=== PATIENT | female | born 1990 | race Caucasian/White ===

== ENCOUNTER 2019-12-15 16:02 | Emergency (ER) | payer MEDICARE, OTHER ==
[2019-12-15 16:18] VITALS: RESP 18; TEMP 98.3
[2019-12-15] MEDS ORDERED: SODIUM CHLORIDE 0.9% 500 ML 500 ML IV ONE (16:40)
[2019-12-15] MEDS ORDERED: HYDROmorphone 0.5 MG/0.5 ML SYRINGE IVP STA ×2 (16:40→18:20)
[2019-12-15] MEDS ORDERED: SODIUM CHLORIDE 0.9% 1,000 ML IV SCH (16:45)
[2019-12-15 17:07] LABS: Basophils % (A) 1 %; Eosinophils # (A) 0.1 k/uL (0-0.7); Eosinophils % (A) 2 %; HCT 42.2 % (34.0-46.0); HGB 13.9 gm/dL (11.4-16.0); Lymphocytes # (A) 1.7 k/uL (1.0-4.8); Lymphocytes % (A) 25 %; MCH 32.3 pg (25.0-35.0); MCHC 32.8 g/dL (31.0-37.0); MCV 98.4 fL (80.0-100.0); Mean Platelet Volume 6.4; Monocytes # (A) 0.3 k/uL (0-1.0); Monocytes % (A) 5 %; Neutrophils # (A) 4.5 k/uL (1.3-7.7); Neutrophils % (A) 67 %; Platelet Count 436 k/uL (150-450); RBC 4.29 m/uL (3.80-5.40); RDW 12.9 % (11.5-15.5); WBC 6.7 k/uL (3.8-10.6)
[2019-12-15 17:13] LABS: Appearance,Urine Cloudy (Clear); Bacteria,Urine Many /hpf; Bilirubin,Urine Negative (Negative); Blood,Urine Negative (Negative); Color,Urine Light Yellow; Glucose,Urine (UA) Negative (Negative); Ketones,Urine Negative (Negative); Leukocyte Esterase,Urine Negative (Negative); Mucus,Urine Rare /hpf; Nitrite,Urine Negative (Negative); PH, Urine 7.5 (5.0-8.0); Protein,Urine Negative (Negative); RBC,Urine <1 /hpf (0-5); Specific Gravity,Urine 1.008 (1.001-1.035); Squamous Epithelial Cell,Urine 1 /hpf (0-4); Urobilinogen,Urine <2.0 mg/dL (<2.0); WBC,Urine 7 /hpf (0-5)
[2019-12-15 17:23] LABS: ALT 11 U/L (4-34); AST 23 U/L (14-36); African American GFR (CKD) >90 (>60 ml/min/1.73 sqM); Albumin 4.8 g/dL (3.5-5.0); Alkaline Phosphatase 47 U/L (38-126); Anion Gap 9 mmol/L; Blood Urea Nitrogen 15 mg/dL (7-17); Carbon Dioxide 23 mmol/L (22-30); Chloride 107 mmol/L (98-107); Glucose 91 mg/dL (74-99); Non-African American GFR(CKD) 79 (>60 ml/min/1.73 sqM); Potassium 4.4 mmol/L (3.5-5.1); Sodium 139 mmol/L (137-145); Total Bilirubin 0.3 mg/dL (0.2-1.3); Total Protein 7.9 g/dL (6.3-8.2)
--- NOTE | 2019-12-15 17:40 | CT ---
EXAMINATION TYPE: CT abdomen pelvis w con DATE OF EXAM: 12/15/2019 COMPARISON: None HISTORY: Left lower pelvic pain. Cyst removal 11/19/19. CT DLP: 935.3 mGycm Automated exposure control for dose reduction was used. CONTRAST: Performed with IV Contrast, patient injected with 100 mL of Isovue 300. Multiple axial sections were obtained from the diaphragm to the floor the pelvis with IV contrast. Lung bases are clear. There is no pleural effusion. Heart size is normal. There is no pericardial eff usion. Liver and gallbladder appear normal. Bile ducts are not dilated. Spleen stomach pancreas appear dom[place] l. There is no adrenal mass. Kidneys show satisfactory contrast opacification. There is no hydronephrosi s. Ureters are not dilated. The delayed images show normal renal excretion. There is no retroperitone al adenopathy. Bladder distends smoothly. There is no inguinal hernia. Uterus is anteverted. There is no evidence of a pelvic mass. There is 2 cm cyst on the left ovary. Appendix is partly filled with air and appears normal. Appendix is posterior. There is no mesenteric edema. There is no ascites or free air. There is no sign of a bowel obstructio n. Lumbar vertebra have normal spacing and alignment. There is no compression fracture. Bony pelvis i s intact. IMPRESSION: 2 cm cyst on the left ovary. Negative CT scan abdomen and pelvis. Normal appendix.
--- NOTE | 2019-12-15 18:18 | US ---
EXAMINATION TYPE: US transvaginal DATE OF EXAM: 12/15/2019 COMPARISON: NONE CLINICAL HISTORY: r/o torsion. Hx of ovarian cysts. TECHNIQUE: Transvaginal (TV). EXAM MEASUREMENTS: Uterus: 7.3 x 3.6 x 5.2 cm Endometrial Stripe: .4 cm Right Ovary: 5.1 x 3.1 x 5.8 cm Left Ovary: 2.3 x 3.2 x 2.0 cm 1. Uterus: Anteverted wnl 2. Endometrium: wnl 3. Right Ovary: Complex area 3.3 x 2.3 x 4.5 cm 4. Left Ovary: Cystic area 4.4 x 2.1 x 1.8 cm Spectral, color and waveform doppler imaging shows good arterial and venous flow within the ovaries ; there is no evidence for ovarian torsion. 5. Bilateral Adnexa: wnl 6. Posterior cul-de-sac: Small amount of fluid. IMPRESSION: Bilateral ovarian cysts. No solid adnexal mass. No evidence of ovarian torsion. Normal uterus. Small amount of free fluid in the pelvis is probably physiologic.
[2019-12-15 18:39] VITALS: BP 118/77; PULSE 88
[2019-12-15] MEDS ORDERED: ACET/COD 300 MG/30 MG STARTER PACK 6 TAB BTL PO STA (18:54)
--- NOTE | 2019-12-15 18:54 | ED ---
Abdominal Pain HPI - General Chief Complaint: Abdominal Pain Stated Complaint: lower abd pain Time Seen by Provider: 12/15/19 16:21 Source: patient Mode of arrival: ambulatory Limitations: no limitations - History of Present Illness Initial Comments: 29-year-old female with recent cyst removal surgery at [facility] 11/19/2019 present for left lower pelvic pain x 1 week. Patient states she recently had a left lower pelvic cyst removed those 5 cm per she states she freely equally has recurring ovarian cyst she states her in the largest this was 10 cm. Patient denies history of PCOS. Patient denies vaginal discharge, bleeding, fevers, dysuria, urgency, frequency. Patient denies concern for STI. Chest pain, SOB. States pain at time radiates to her back patient denies additional complaints and appears well on arrival, no signs of significant distress. - Related Data Home Medications Medication Instructions Recorded Confirmed Aspirin EC [Ecotrin Low Dose] 81 mg PO DAILY 12/15/19 12/15/19 Cetirizine HCl [Zyrtec] 10 mg PO DAILY 12/15/19 12/15/19 Cholecalciferol (Vitamin D3) 2,000 unit PO DAILY 12/15/19 12/15/19 [Vitamin D3] DULoxetine HCL [Cymbalta] 120 mg PO DAILY 12/15/19 12/15/19 Folic Acid 1 mg PO DAILY 12/15/19 12/15/19 Ibuprofen [Motrin] 800 mg PO Q6H PRN 12/15/19 12/15/19 Ketorolac 30mg/Ml Injection 30 mg IM ONCE PRN MDD max 1 dose 12/15/19 12/15/19 weekly Multivitamins, Thera [Multivitamin 1 tab PO DAILY 12/15/19 12/15/19 (formulary)] Ondansetron [Zofran ODT] 4 mg SL Q12H PRN 12/15/19 12/15/19 Promethazine [Phenergan] 25 mg PO Q6H PRN 12/15/19 12/15/19 Topiramate [Topamax] 200 mg PO HS 12/15/19 12/15/19 tiZANidine [Zanaflex] 4 mg PO HS 12/15/19 12/15/19 Allergies Allergy/AdvReac Type Severity Reaction Status Date / Time amoxicillin Allergy Rash/Hives Verified 12/15/19 17:59 clindamycin Allergy Rash/Hives Verified 12/15/19 17:59 diphtheria,pertussis Allergy Rash/Hives Verified 12/15/19 17:59 (acellular),te [From Boostrix Tdap] latex Allergy Rash/Hives Verified 12/15/19 17:59 sertraline [From Zoloft] Allergy Rash/Hives/ Verified 12/15/19 17:59 Seizures Sulfa (Sulfonamide Allergy Rash/Hives Verified 12/15/19 17:59 Antibiotics) Review of Systems ROS Statement: Those systems with pertinent positive or pertinent negative responses have been documented in the HPI. ROS Other: All systems not noted in ROS Statement are negative. Past Medical History Additional Past Medical History / Comment(s): MS- Migraines, malformation type one Past Surgical History: Adenoidectomy, Hernia Repair, Orthopedic Surgery, Tonsillectomy, Tubal Ligation Additional Past Surgical History / Comment(s): cyst removal x 2, brain sx 2018 Past Psychological History: Depression, PTSD Smoking Status: Never smoker Past Alcohol Use History: Occasional Past Drug Use History: Marijuana General Exam - General Exam Comments Initial Comments: General: The patient is awake and alert, in no distress Eye: +3 mm pupils are equal, round and reactive to light, extra-ocular movements are intact. No nystagmus. There is normal conjunctiva bilaterally. No signs of icterus. Ears, nose, mouth and throat: There are moist mucous membranes and no oral lesions. Neck: The neck is supple, there is no tenderness or JVD. Cardiovascular: There is a regular rate and rhythm. No murmur, rub or gallop is appreciated. Respiratory: Lungs are clear to auscultation, respirations are non-labored, breath sounds are equal. No wheezes, stridor, rales, or rhonchi. Gastrointestinal: Soft, non-distended, mild left lower pelvic tenderness to palpation of the abdomen without masses or organomegaly noted. There is no rebound or guarding present. Musculoskeletal: Normal ROM, no tenderness. Strength 5/5. Sensation intact. Radial pulses equal bilaterally 2+. Neurological: A&O x 3. CN II-XII intact grossly, There are no obvious motor or sensory deficits. Coordination appears grossly intact. Speech is normal. Skin: Skin is warm and dry and no rashes or lesions are noted. Psychiatric: Cooperative, appropriate mood & affect, normal judgment. Limitations: no limitations Course Vital Signs 12/15/19 12/15/19 16:14 18:39 Temperature 98.3 F Pulse Rate 106 H 88 Respiratory 18 18 Rate Blood Pressure 124/77 118/77 O2 Sat by Pulse 98 98 Oximetry Medical Decision Making - Medical Decision Making CT (-) for acute process. Cysts noted. US noted small 2cm cyst, no torsion. Sho ent has no significant free fluid in abdomen. Pain controlled in ER. Urine some bacteria no urinary symptoms. Given back pain will treat. Recommend OBGYN f/u. She states was established K her ankle a scheduled appointment for December 23. Recommend calling to arrange sooner f/u and obtain records. Patient states she is comfortable with discharge and figured this was a cyst. Patient discharged appearing well> I discussed return parameters and importance of f/u and return for increasing pain. - Lab Data Result diagrams: 12/15/19 17:00 12/15/19 17:00 Lab Results 12/15/19 12/15/19 12/15/19 Range/Units 17:00 17:00 17:00 WBC 6.7 (3.8-10.6) k/uL RBC 4.29 (3.80-5.40) m/uL Hgb 13.9 (11.4-16.0) gm/dL Hct 42.2 (34.0-46.0) % MCV 98.4 (80.0-100.0) fL MCH 32.3 (25.0-35.0) pg MCHC 32.8 (31.0-37.0) g/dL RDW 12.9 (11.5-15.5) % Plt Count 436 (150-450) k/uL Neutrophils % 67 % Lymphocytes % 25 % Monocytes % 5 % Eosinophils % 2 % Basophils % 1 % Neutrophils # 4.5 (1.3-7.7) k/uL Lymphocytes # 1.7 (1.0-4.8) k/uL Monocytes # 0.3 (0-1.0) k/uL Eosinophils # 0.1 (0-0.7) k/uL Basophils # 0.0 (0-0.2) k/uL Sodium (137-145) mmol/L Potassium (3.5-5.1) mmol/L Chloride (98-107) mmol/L Carbon Dioxide (22-30) mmol/L Anion Gap mmol/L BUN (7-17) mg/dL Creatinine (0.52-1.04) mg/dL Est GFR (CKD-EPI)AfAm (>60 ml/min/1.73 sqM) Est GFR (CKD-EPI)NonAf (>60 ml/min/1.73 sqM) Glucose (74-99) mg/dL Calcium (8.4-10.2) mg/dL Total Bilirubin (0.2-1.3) mg/dL AST (14-36) U/L ALT (4-34) U/L Alkaline Phosphatase (38-126) U/L Total Protein (6.3-8.2) g/dL Albumin (3.5-5.0) g/dL Urine Color Light Yellow Urine Appearance Cloudy H (Clear) Urine pH 7.5 (5.0-8.0) Ur Specific [place] 1.008 (1.001-1.035) Urine Protein Negative (Negative) Urine Glucose (UA) Negative (Negative) Urine Ketones Negative (Negative) Urine Blood Negative (Negative) Urine Nitrite Negative (Negative) Urine Bilirubin Negative (Negative) Urine Urobilinogen <2.0 (<2.0) mg/dL Ur Leukocyte Esterase Negative (Negative) Urine RBC <1 (0-5) /hpf Urine WBC 7 H (0-5) /hpf Ur Squamous Epith Cells 1 (0-4) /hpf Urine Bacteria Many H (None) /hpf Urine Mucus Rare H (None) /hpf Urine HCG, Qual Not Detected (Not Detectd) 12/15/19 Range/Units 17:00 WBC (3.8-10.6) k/uL RBC (3.80-5.40) m/uL Hgb (11.4-16.0) gm/dL Hct (34.0-46.0) % MCV (80.0-100.0) fL MCH (25.0-35.0) pg MCHC (31.0-37.0) g/dL RDW (11.5-15.5) % Plt Count (150-450) k/uL Neutrophils % % Lymphocytes % % Monocytes % % Eosinophils % % Basophils % % Neutrophils # (1.3-7.7) k/uL Lymphocytes # (1.0-4.8) k/uL Monocytes # (0-1.0) k/uL Eosinophils # (0-0.7) k/uL Basophils # (0-0.2) k/uL Sodium 139 (137-145) mmol/L Potassium 4.4 (3.5-5.1) mmol/L Chloride 107 (98-107) mmol/L Carbon Dioxide 23 (22-30) mmol/L Anion Gap 9 mmol/L BUN 15 (7-17) mg/dL Creatinine 0.98 (0.52-1.04) mg/dL Est GFR (CKD-EPI)AfAm >90 (>60 ml/min/1.73 sqM) Est GFR (CKD-EPI)NonAf 79 (>60 ml/min/1.73 sqM) Glucose 91 (74-99) mg/dL Calcium 10.0 (8.4-10.2) mg/dL Total Bilirubin 0.3 (0.2-1.3) mg/dL AST 23 (14-36) U/L ALT 11 (4-34) U/L Alkaline Phosphatase 47 (38-126) U/L Total Protein 7.9 (6.3-8.2) g/dL Albumin 4.8 (3.5-5.0) g/dL Urine Color Urine Appearance (Clear) Urine pH (5.0-8.0) Ur Specific [place] (1.001-1.035) Urine Protein (Negative) Urine Glucose (UA) (Negative) Urine Ketones (Negative) Urine Blood (Negative) Urine Nitrite (Negative) Urine Bilirubin (Negative) Urine Urobilinogen (<2.0) mg/dL Ur Leukocyte Esterase (Negative) Urine RBC (0-5) /hpf Urine WBC (0-5) /hpf Ur Squamous Epith Cells (0-4) /hpf Urine Bacteria (None) /hpf Urine Mucus (None) /hpf Urine HCG, Qual (Not Detectd) Disposition Clinical Impression: Pelvic pain, Ovarian cyst Disposition: HOME SELF-CARE Condition: Good Instructions (If sedation given, give patient instructions): Ovarian Cyst (ED) Additional Instructions: Please use medication as discussed. Please follow-up OBGYN in next week. Please return to emergency room if the symptoms increase or worsen or for any other concerns. Is patient prescribed a controlled substance at d/c from ED?: No Referrals: Nonstaff,Physician [Primary Care Provider] - 1-2 days Time of Disposition: 18:54
== END 2019-12-15 19:02 | disposition home or self-care (01) ==
LOC: EC 16:02
DX: N83.202 Unspecified ovarian cyst, left side (principal); N83.201 Unspecified ovarian cyst, right side; G43.909 Migraine, unspecified, not intractable, without status migrainosus; F32.9 Major depressive disorder, single episode, unspecified; Z79.899 Other long term (current) drug therapy; Z88.0 Allergy status to penicillin; Z88.1 Allergy status to other antibiotic agents; Z88.2 Allergy status to sulfonamides; Z88.7 Allergy status to serum and vaccine; Z88.8 Allergy status to other drugs, medicaments and biological substances; Z91.040 Latex allergy status; Z90.49 Acquired absence of other specified parts of digestive tract; Z98.51 Tubal ligation status
CPT/HCPCS: 36415; 80053; 85025; 81001; 81025; 93975; 76830; 74177; 99284; 96374; 96375; 96361; J1170; Q9967

== ENCOUNTER 2019-12-24 13:30 | Emergency (ER) | payer MEDICARE, OTHER ==
[2019-12-24 14:20] LABS: Appearance,Urine Clear (Clear); Bilirubin,Urine Negative (Negative); Blood,Urine Negative (Negative); Color,Urine Light Yellow; Glucose,Urine (UA) Negative (Negative); Ketones,Urine Negative (Negative); Leukocyte Esterase,Urine Negative (Negative); Nitrite,Urine Negative (Negative); PH, Urine 7.5 (5.0-8.0); Protein,Urine Negative (Negative); Specific Gravity,Urine 1.003 (1.001-1.035); Urobilinogen,Urine <2.0 mg/dL (<2.0)
[2019-12-24] MEDS ORDERED: SODIUM CHLORIDE 0.9% 1,000 ML IV STA (14:27)
[2019-12-24] MEDS ORDERED: HYDROmorphone 0.5 MG/0.5 ML SYRINGE IVP STA ×2 (14:27→16:20)
[2019-12-24] MEDS ORDERED: ONDANSETRON 4 MG/2 ML VIAL IVP STA (14:27)
--- NOTE | 2019-12-24 14:33 | ED ---
General Adult HPI - General Chief complaint: Abdominal Pain Stated complaint: Lower Abd Pain Time Seen by Provider: 12/24/19 14:05 Source: patient, RN notes reviewed Mode of arrival: ambulatory Limitations: no limitations - History of Present Illness Initial comments: 29-year-old female with a past medical history of MS, migraines, ovarian cysts presents to the emergency department for a chief complaint of left lower quadrant pain. Patient states she had lap her cervix surgery on November 20 to remove a 5 cm cyst on the left ovary. Patient states she was seen here on December 14 because she started to have similar pain. She was diagnosed with a small cy st. Patient states pain improved at that time and she went home. She followed up with her doctor who wanted to wait and see how patient's pain was and get another ultrasound next week. Patient states her pain had completely resolved however this morning felt like a sudden stabbing pain in the left lower quadrant. Patient states she is passing gas and having normal bowel movements. Admits to mild nausea with the pain but denies vomiting. Denies dysuria.Patient has no other complaints at this time including shortness of breath, chest pain, vomiting, headache, or visual changes. - Related Data Home Medications Medication Instructions Recorded Confirmed Aspirin EC [Ecotrin Low Dose] 81 mg PO DAILY 12/15/19 12/24/19 Cetirizine HCl [Zyrtec] 10 mg PO DAILY 12/15/19 12/24/19 Cholecalciferol (Vitamin D3) 2,000 unit PO DAILY 12/15/19 12/24/19 [Vitamin D3] DULoxetine HCL [Cymbalta] 120 mg PO DAILY 12/15/19 12/24/19 Folic Acid 1 mg PO DAILY 12/15/19 12/24/19 Ibuprofen [Motrin] 800 mg PO Q6H PRN 12/15/19 12/24/19 Ketorolac 30mg/Ml Injection 30 mg IM ONCE PRN MDD max 1 dose 12/15/19 12/24/19 weekly Multivitamins, Thera [Multivitamin 1 tab PO DAILY 12/15/19 12/24/19 (formulary)] Ondansetron [Zofran ODT] 4 mg SL Q12H PRN 12/15/19 12/24/19 Promethazine [Phenergan] 25 mg PO Q6H PRN 12/15/19 12/24/19 Topiramate [Topamax] 200 mg PO HS 12/15/19 12/24/19 tiZANidine [Zanaflex] 4 mg PO HS 12/15/19 12/24/19 diphenhydrAMINE [Benadryl] 25 - 50 mg PO HS PRN 12/24/19 12/24/19 Allergies Allergy/AdvReac Type Severity Reaction Status Date / Time amoxicillin Allergy Rash/Hives Verified 12/24/19 15:11 clindamycin Allergy Rash/Hives Verified 12/24/19 15:11 diphtheria,pertussis Allergy Rash/Hives Verified 12/24/19 15:11 (acellular),te [From Boostrix Tdap] latex Allergy Rash/Hives Verified 12/24/19 15:11 sertraline [From Zoloft] Allergy Rash/Hives/ Verified 12/24/19 15:11 Seizures Sulfa (Sulfonamide Allergy Rash/Hives Verified 12/24/19 15:11 Antibiotics) Review of Systems ROS Statement: Those systems with pertinent positive or pertinent negative responses have been documented in the HPI. ROS Other: All systems not noted in ROS Statement are negative. Past Medical History Additional Past Medical History / Comment(s): MS- Migraines, malformation type one Past Surgical History: Adenoidectomy, Hernia Repair, Orthopedic Surgery, Tonsillectomy, Tubal Ligation Additional Past Surgical History / Comment(s): cyst removal x 2, brain sx 2018 Past Psychological History: Depression, PTSD Smoking Status: Never smoker Past Alcohol Use History: Occasional Past Drug Use History: Marijuana General Exam Limitations: no limitations General appearance: alert, in no apparent distress Head exam: Present: atraumatic, normocephalic, normal inspection Eye exam: Present: normal appearance, PERRL, EOMI. Absent: scleral icterus, conjunctival injection, periorbital swelling ENT exam: Present: normal exam, mucous membranes moist Neck exam: Present: normal inspection, full ROM. Absent: tenderness, meningismus, lymphadenopathy Respiratory exam: Present: normal lung sounds bilaterally. Absent: respiratory distress, wheezes, rales, rhonchi, stridor Cardiovascular Exam: Present: regular rate, normal rhythm, normal heart sounds. Absent: systolic murmur, diastolic murmur, rubs, gallop, clicks GI/Abdominal exam: Present: soft, tenderness (Minimal left lower quadrant tenderness without guarding. No right lower quadrant tenderness. No upper abdominal tenderness. Abdomen is soft.), normal bowel sounds. Absent: distended, guarding, rebound, rigid Neurological exam: Present: alert Course Vital Signs 12/24/19 13:52 Temperature 98 F Pulse Rate 99 Respiratory 18 Rate Blood Pressure 118/85 O2 Sat by Pulse 100 Oximetry Medical Decision Making - Medical Decision Making Vitals are stable. Physical exam reveals minimal left lower quadrant tenderness without any guarding or rebound. CBC CMP is unremarkable. Urinalysis is unremarkable. I did review the CT from December 14 which showed a 2 cm cyst on the left ovary and was otherwise negative. Appendix appeared normal at that time. Ultrasound at that time showed bilateral ovarian cysts. Patient spoke with her doctor who ordered another ultrasound for next week. However as pain started today patient came into the emergency room. Therefore I repeated ultrasound to rule out ovarian torsion. Ultrasound did show a complex right ovarian mass that may reflect hemorrhagic cyst or endometrioma. Lesion of other etiology not excluded and strict clinical correlation is advised. This is now 4.3 cm versus 3.3 cm from a week ago. There is a simple appearing cyst of the left ovary. Patient feeling better after pain medications. Patient has close follow-up with her [employer]. I did print a disc for her [employer]. 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 She will call today with results. She will return here for any worsening symptoms. - Lab Data Result diagrams: 12/24/19 15:29 12/24/19 15:29 Lab Results 12/24/19 12/24/19 12/24/19 Range/Units 14:07 14:07 15:29 WBC 4.7 (3.8-10.6) k/uL RBC 4.12 (3.80-5.40) m/uL Hgb 13.3 (11.4-16.0) gm/dL Hct 40.2 (34.0-46.0) % MCV 97.4 (80.0-100.0) fL MCH 32.2 (25.0-35.0) pg MCHC 33.1 (31.0-37.0) g/dL RDW 12.7 (11.5-15.5) % Plt Count 438 (150-450) k/uL Neutrophils % 61 % Lymphocytes % 30 % Monocytes % 6 % Eosinophils % 1 % Basophils % 0 % Neutrophils # 2.9 (1.3-7.7) k/uL Lymphocytes # 1.4 (1.0-4.8) k/uL Monocytes # 0.3 (0-1.0) k/uL Eosinophils # 0.1 (0-0.7) k/uL Basophils # 0.0 (0-0.2) k/uL Sodium (137-145) mmol/L Potassium (3.5-5.1) mmol/L Chloride (98-107) mmol/L Carbon Dioxide (22-30) mmol/L Anion Gap mmol/L BUN (7-17) mg/dL Creatinine (0.52-1.04) mg/dL Est GFR (CKD-EPI)AfAm (>60 ml/min/1.73 sqM) Est GFR (CKD-EPI)NonAf (>60 ml/min/1.73 sqM) Glucose (74-99) mg/dL Calcium (8.4-10.2) mg/dL Total Bilirubin (0.2-1.3) mg/dL AST (14-36) U/L ALT (4-34) U/L Alkaline Phosphatase (38-126) U/L Total Protein (6.3-8.2) g/dL Albumin (3.5-5.0) g/dL Amylase (30-110) U/L Lipase (23-300) U/L Urine Color Light Yellow Urine Appearance Clear (Clear) Urine pH 7.5 (5.0-8.0) Ur Specific [place] 1.003 (1.001-1.035) Urine Protein Negative (Negative) Urine Glucose (UA) Negative (Negative) Urine Ketones Negative (Negative) Urine Blood Negative (Negative) Urine Nitrite Negative (Negative) Urine Bilirubin Negative (Negative) Urine Urobilinogen <2.0 (<2.0) mg/dL Ur Leukocyte Esterase Negative (Negative) Urine HCG, Qual Not Detected (Not Detectd) 12/24/19 Range/Units 15:29 WBC (3.8-10.6) k/uL RBC (3.80-5.40) m/uL Hgb (11.4-16.0) gm/dL Hct (34.0-46.0) % MCV (80.0-100.0) fL MCH (25.0-35.0) pg MCHC (31.0-37.0) g/dL RDW (11.5-15.5) % Plt Count (150-450) k/uL Neutrophils % % Lymphocytes % % Monocytes % % Eosinophils % % Basophils % % Neutrophils # (1.3-7.7) k/uL Lymphocytes # (1.0-4.8) k/uL Monocytes # (0-1.0) k/uL Eosinophils # (0-0.7) k/uL Basophils # (0-0.2) k/uL Sodium 140 (137-145) mmol/L Potassium 4.1 (3.5-5.1) mmol/L Chloride 108 H (98-107) mmol/L Carbon Dioxide 24 (22-30) mmol/L Anion Gap 8 mmol/L BUN 13 (7-17) mg/dL Creatinine 0.78 (0.52-1.04) mg/dL Est GFR (CKD-EPI)AfAm >90 (>60 ml/min/1.73 sqM) Est GFR (CKD-EPI)NonAf >90 (>60 ml/min/1.73 sqM) Glucose 86 (74-99) mg/dL Calcium 9.6 (8.4-10.2) mg/dL Total Bilirubin 0.3 (0.2-1.3) mg/dL AST 21 (14-36) U/L ALT 12 (4-34) U/L Alkaline Phosphatase 53 (38-126) U/L Total Protein 7.1 (6.3-8.2) g/dL Albumin 4.4 (3.5-5.0) g/dL Amylase 58 (30-110) U/L Lipase 96 (23-300) U/L Urine Color Urine Appearance (Clear) Urine pH (5.0-8.0) Ur Specific [place] (1.001-1.035) Urine Protein (Negative) Urine Glucose (UA) (Negative) Urine Ketones (Negative) Urine Blood (Negative) Urine Nitrite (Negative) Urine Bilirubin (Negative) Urine Urobilinogen (<2.0) mg/dL Ur Leukocyte Esterase (Negative) Urine HCG, Qual (Not Detectd) Disposition Clinical Impression: Pelvic pain, Ovarian mass, right Disposition: HOME SELF-CARE Condition: Good Instructions (If sedation given, give patient instructions): Ruptured Ovarian Cyst (ED), Ovarian Cyst (ED) Additional Instructions: Please follow up with [employer] as soon as possible. As discussed we would like [employer] to further evaluate mass of the right ovary. The concern is hemorrhagic cyst versus endometrioma versus other etiology. Take Motrin for pain. If pain is persistent a Tylenol [address] operate machinery while taking this. Please return here to the emergency room should you have any worsening symptoms. Is patient prescribed a controlled substance at d/c from ED?: No Referrals: Nonstaff,Physician [Primary Care Provider] - 1-2 days Time of Disposition: 17:02
[2019-12-24 15:46] LABS: ALT 12 U/L (4-34); AST 21 U/L (14-36); African American GFR (CKD) >90 (>60 ml/min/1.73 sqM); Albumin 4.4 g/dL (3.5-5.0); Alkaline Phosphatase 53 U/L (38-126); Amylase 58 U/L (30-110); Anion Gap 8 mmol/L; Blood Urea Nitrogen 13 mg/dL (7-17); Calcium 9.6 mg/dL (8.4-10.2); Carbon Dioxide 24 mmol/L (22-30); Chloride 108 mmol/L (98-107); Glucose 86 mg/dL (74-99); Non-African American GFR(CKD) >90 (>60 ml/min/1.73 sqM); Potassium 4.1 mmol/L (3.5-5.1); Sodium 140 mmol/L (137-145); Total Bilirubin 0.3 mg/dL (0.2-1.3); Total Protein 7.1 g/dL (6.3-8.2)
[2019-12-24 15:58] LABS: Basophils % (A) 0 %; Eosinophils # (A) 0.1 k/uL (0-0.7); Eosinophils % (A) 1 %; HCT 40.2 % (34.0-46.0); HGB 13.3 gm/dL (11.4-16.0); Lymphocytes # (A) 1.4 k/uL (1.0-4.8); Lymphocytes % (A) 30 %; MCH 32.2 pg (25.0-35.0); MCHC 33.1 g/dL (31.0-37.0); MCV 97.4 fL (80.0-100.0); Mean Platelet Volume 6.7; Monocytes # (A) 0.3 k/uL (0-1.0); Monocytes % (A) 6 %; Neutrophils # (A) 2.9 k/uL (1.3-7.7); Neutrophils % (A) 61 %; Platelet Count 438 k/uL (150-450); RBC 4.12 m/uL (3.80-5.40); RDW 12.7 % (11.5-15.5); WBC 4.7 k/uL (3.8-10.6)
--- NOTE | 2019-12-24 16:19 | US ---
EXAMINATION TYPE: US transvaginal DATE OF EXAM: 12/24/2019 COMPARISON: 12/15/2019 CLINICAL HISTORY: pain, h/o cysts. pelvic pain, history of ovarian cyst TECHNIQUE: Transvaginal (TV) Date of LMP: 12/16/19 EXAM MEASUREMENTS: Uterus: 7.7 x 3.7 x 4.9 cm Endometrial Stripe: 0.3 cm Right Ovary: 5.8 x 3.0 x 3.3 cm Left Ovary: 4.2 x 2.8 x 3.7 cm 1. Uterus: Anteverted 2. Endometrium: appears wnl 3. Right Ovary: heterogeneous and enlarged with complex area = 4.3 x 2.6 x 3.0cm versus prior measur ement of 3.3 x 2.3 cm. 4. Left Ovary: cystic area = 3.7 x 1.7 x 2.8cm Spectral, color and waveform doppler imaging shows good arterial and venous flow within the ovaries ; there is no evidence for ovarian torsion. 5. Bilateral Adnexa: small amount of free fluid left adnexa 6. Posterior cul-de-sac: small amount of free fluid IMPRESSION: 1. Complex right ovarian mass may reflect hemorrhagic cyst or endometrioma. Lesion of other etiology not excluded and strict clinical correlation is advised. Appropriate follow-up recommended in 6 weeks . 2. Simple appearing cyst left ovary. 3. Small amount of free fluid is noted.
[2019-12-24] MEDS ORDERED: ACET/COD 300 MG/30 MG STARTER PACK 6 TAB BTL PO STA (17:03)
[2019-12-25 10:13] VITALS: BP 121/90; PULSE 91; RESP 18; TEMP 97
== END 2019-12-24 17:49 | disposition home or self-care (01) ==
LOC: EC 13:30
DX: N83.8 Other noninflammatory disorders of ovary, fallopian tube and broad ligament (principal); R10.2 Pelvic and perineal pain; G43.909 Migraine, unspecified, not intractable, without status migrainosus; F32.9 Major depressive disorder, single episode, unspecified; F43.10 Post-traumatic stress disorder, unspecified; G35 Multiple sclerosis; Z79.82 Long term (current) use of aspirin; Z79.899 Other long term (current) drug therapy; Z88.0 Allergy status to penicillin; Z88.1 Allergy status to other antibiotic agents; Z88.7 Allergy status to serum and vaccine; Z91.040 Latex allergy status; Z88.8 Allergy status to other drugs, medicaments and biological substances; Z88.2 Allergy status to sulfonamides; Z87.42 Personal history of other diseases of the female genital tract
CPT/HCPCS: 36415; 76830; 80053; 81003; 81025; 82150; 83690; 85025; 87491; 87591; 93975; 96361; 96374; 96375; 96376; 99284

== ENCOUNTER 2020-01-02 15:36 | Emergency (ER) | payer MEDICARE, OTHER ==
[2020-01-02 15:43] VITALS: TEMP 98.7
[2020-01-02] MEDS ORDERED: MORPHINE SULFATE 4 MG/ML SYRINGE IV STA (16:06)
[2020-01-02] MEDS ORDERED: SODIUM CHLORIDE 0.9% 1,000 ML IV STA (16:07)
--- NOTE | 2020-01-02 16:13 | ED ---
General Adult HPI - General Chief complaint: Abdominal Pain Stated complaint: SEVERE ABDOMINAL PAIN Time Seen by Provider: 01/02/20 15:45 Source: patient Mode of arrival: ambulatory Limitations: no limitations - History of Present Illness Initial comments: Dictation was produced using [employer] dictation software. please excuse any grammatical, word or spelling errors. This patient was cared for during a federal and state declared state of emergen cy secondary to Covid 19 Chief Complaint: 29-year-old female past medical history of multiple large ovarian cysts presents with suprapubic pain. History of Present Illness: 29-year-old female she has history of multiple variances patient states she's had cyst that measured between 3 and almost 6 cm. Last month patient had laparoscopic with removal of an ovarian cyst. Reports that she's been having intense pelvic pain since approximately 11 AM. Patient states that the pain is severe does not return back. Patient states she also had some vaginal bleeding around the time the onset of her pelvic pain symptoms. Patient took a Toradol and Tylenol No. 3 at home with no resolution of symptoms. Denies any fever, chills. Patient does feel some nausea. She did take some Zofran at home. The ROS documented in this emergency department record has been reviewed and confirmed by me. Those systems with pertinent positive or negative responses have been documented in the HPI. All other systems are other negative and/or noncontributory. PHYSICAL EXAM: General Impression: Alert and oriented x3, acute distress secondary to pain HEENT: Normocephalic atraumatic, extra-ocular movements intact, pupils equal and reactive to light bilaterally, mucous membranes moist. Cardiovascular: Heart regular rate and rhythm Chest: Able to complete full sentences, no retractions, no tachypnea Abdomen: abdomen soft, tender to palpation in the suprapubic region non- distended, no organomegaly Musculoskeletal: Pulses present and equal in all extremities, no peripheral edema Motor: no focal deficits noted Neurological: CN II-XII grossly intact, no focal motor or sensory deficits noted Skin: Intact with no visualized rashes Psych: Normal affect and mood ED course: 29-year-old female with history of multiple ovarian cysts presents with acute pelvic pain starting at 11 AM today. As upon arrival are within acceptable limits. Patient in acute distress. Chart review shows that patient was here in our emergency department 9 days ago for similar complaint. She had transvaginal ultrasound at that time showing evidence of complex right ovarian mass measuring approximately 4 x 3 x 3 cm. Patient also had a CT of the abdomen and pelvis and November 2019. CT read shows 2 centimeters cyst of the left ovary. She has history of rapidly growing ovarian cysts. Patient reports that she has outpatient care of her frequent cysts by an LOAN CLERK based out of [facility] [place]. assessment technician was called immediately for stat transvaginal ultrasound to evaluate for ovarian torsion. Laboratory evaluation obtained. CBC is unremarkable. No leukocytosis. Coag panel is negative. Metabolic panel is negative. Urinalysis concerning for urinary tract infection with 98 white blood cells and greater than 182 red blood cells. Transvaginal ultrasound was obtained showing no signs of torsion. Patient had 2.2 cm hypoechoic lesion in the right ovary there is really mild pelvic free fluid likely physiologic. Was one seen is at 3.7 cm ovarian cyst on the left ovary is not present today on the ultrasound. Given multiple doses of IV analgesics with improvement of symptoms. Patient is well-appearing at bedside. Patient agreeable for discharge. She is told to follow closely with her sheet folder for outpatient management of her symptoms. Patient clear for discharge return parameters discussed. Patient prescription for by mouth analgesics and antibiotics for UTI. She is given a dose of ceftriaxone prior to discharge. - Related Data Home Medications Medication Instructions Recorded Confirmed Aspirin EC [Ecotrin Low Dose] 81 mg PO DAILY 12/15/19 12/24/19 Cetirizine HCl [Zyrtec] 10 mg PO DAILY 12/15/19 12/24/19 Cholecalciferol (Vitamin D3) 2,000 unit PO DAILY 12/15/19 12/24/19 [Vitamin D3] DULoxetine HCL [Cymbalta] 120 mg PO DAILY 12/15/19 12/24/19 Folic Acid 1 mg PO DAILY 12/15/19 12/24/19 Ibuprofen [Motrin] 800 mg PO Q6H PRN 12/15/19 12/24/19 Ketorolac 30mg/Ml Injection 30 mg IM ONCE PRN MDD max 1 dose 12/15/19 12/24/19 weekly Multivitamins, Thera [Multivitamin 1 tab PO DAILY 12/15/19 12/24/19 (formulary)] Ondansetron [Zofran ODT] 4 mg SL Q12H PRN 12/15/19 12/24/19 Promethazine [Phenergan] 25 mg PO Q6H PRN 12/15/19 12/24/19 Topiramate [Topamax] 200 mg PO HS 12/15/19 12/24/19 tiZANidine [Zanaflex] 4 mg PO HS 12/15/19 12/24/19 diphenhydrAMINE [Benadryl] 25 - 50 mg PO HS PRN 12/24/19 12/24/19 Previous Rx's Medication Instructions Recorded Cephalexin [Keflex] 500 mg PO Q6HR 5 Days #20 cap 01/02/20 Morphine Sulfate Ir [MSIR] 15 mg PO Q6HR PRN 3 Days #8 tab 01/02/20 Allergies Allergy/AdvReac Type Severity Reaction Status Date / Time amoxicillin Allergy Rash/Hives Verified 01/02/20 15:43 clindamycin Allergy Rash/Hives Verified 01/02/20 15:43 diphtheria,pertussis Allergy Rash/Hives Verified 01/02/20 15:43 (acellular),te [From Boostrix Tdap] latex Allergy Rash/Hives Verified 01/02/20 15:43 sertraline [From Zoloft] Allergy Rash/Hives/ Verified 01/02/20 15:43 Seizures Sulfa (Sulfonamide Allergy Rash/Hives Verified 01/02/20 15:43 Antibiotics) Review of Systems ROS Statement: Those systems with pertinent positive or pertinent negative responses have been documented in the HPI. ROS Other: All systems not noted in ROS Statement are negative. Past Medical History Additional Past Medical History / Comment(s): MS- Migraines, malformation type one Past Surgical History: Adenoidectomy, Hernia Repair, Orthopedic Surgery, Tonsillectomy, Tubal Ligation Additional Past Surgical History / Comment(s): cyst removal x 2, brain sx 2018 Past Psychological History: Depression, PTSD Smoking Status: Never smoker Past Alcohol Use History: Occasional Past Drug Use History: Marijuana General Exam Limitations: no limitations Course Vital Signs 01/02/20 01/02/20 01/02/20 15:40 17:36 19:25 Temperature 98.7 F Pulse Rate 98 87 93 Respiratory 18 17 18 Rate Blood Pressure 120/82 120/86 97/71 O2 Sat by Pulse 99 100 97 Oximetry Medical Decision Making - Lab Data Result diagrams: 01/02/20 16:10 01/02/20 16:10 Lab Results 01/02/20 01/02/20 01/02/20 Range/Units 16:10 16:10 16:10 WBC 3.6 L (3.8-10.6) k/uL RBC 4.26 (3.80-5.40) m/uL Hgb 14.2 (11.4-16.0) gm/dL Hct 42.0 (34.0-46.0) % MCV 98.7 (80.0-100.0) fL MCH 33.2 (25.0-35.0) pg MCHC 33.7 (31.0-37.0) g/dL RDW 12.4 (11.5-15.5) % Plt Count 437 (150-450) k/uL Neutrophils % 47 % Lymphocytes % 43 % Monocytes % 6 % Eosinophils % 1 % Basophils % 0 % Neutrophils # 1.7 (1.3-7.7) k/uL Lymphocytes # 1.5 (1.0-4.8) k/uL Monocytes # 0.2 (0-1.0) k/uL Eosinophils # 0.0 (0-0.7) k/uL Basophils # 0.0 (0-0.2) k/uL PT 10.0 (9.0-12.0) sec INR 1.0 (<1.2) APTT 26.3 (22.0-30.0) sec Sodium (137-145) mmol/L Potassium (3.5-5.1) mmol/L Chloride (98-107) mmol/L Carbon Dioxide (22-30) mmol/L Anion Gap mmol/L BUN (7-17) mg/dL Creatinine (0.52-1.04) mg/dL Est GFR (CKD-EPI)AfAm (>60 ml/min/1.73 sqM) Est GFR (CKD-EPI)NonAf (>60 ml/min/1.73 sqM) Glucose (74-99) mg/dL Calcium (8.4-10.2) mg/dL HCG, Quant mIU/mL Urine Color Urine Appearance (Clear) Urine pH (5.0-8.0) Ur Specific [place] (1.001-1.035) Urine Protein (Negative) Urine Glucose (UA) (Negative) Urine Ketones (Negative) Urine Blood (Negative) Urine Nitrite (Negative) Urine Bilirubin (Negative) Urine Urobilinogen (<2.0) mg/dL Ur Leukocyte Esterase (Negative) Urine RBC (0-5) /hpf Urine WBC (0-5) /hpf Urine WBC Clumps (None) /hpf Ur Squamous Epith Cells (0-4) /hpf Urine Bacteria (None) /hpf Urine Mucus (None) /hpf Urine Sperm (None) /hpf Blood Type O Positive Blood Type Confirm Blood Type Recheck No Previous Record Bld Type Recheck Status CABO Indicated Antibody Screen NEGATIVE Spec Expiration Date 01/05/2020 - 230901/02/20 01/02/20 01/02/20 Range/Units 16:10 16:15 19:42 WBC (3.8-10.6) k/uL RBC (3.80-5.40) m/uL Hgb (11.4-16.0) gm/dL Hct (34.0-46.0) % MCV (80.0-100.0) fL MCH (25.0-35.0) pg MCHC (31.0-37.0) g/dL RDW (11.5-15.5) % Plt Count (150-450) k/uL Neutrophils % % Lymphocytes % % Monocytes % % Eosinophils % % Basophils % % Neutrophils # (1.3-7.7) k/uL Lymphocytes # (1.0-4.8) k/uL Monocytes # (0-1.0) k/uL Eosinophils # (0-0.7) k/uL Basophils # (0-0.2) k/uL PT (9.0-12.0) sec INR (<1.2) APTT (22.0-30.0) sec Sodium 139 (137-145) mmol/L Potassium 4.2 (3.5-5.1) mmol/L Chloride 105 (98-107) mmol/L Carbon Dioxide 25 (22-30) mmol/L Anion Gap 9 mmol/L BUN 14 (7-17) mg/dL Creatinine 0.74 (0.52-1.04) mg/dL Est GFR (CKD-EPI)AfAm >90 (>60 ml/min/1.73 sqM) Est GFR (CKD-EPI)NonAf >90 (>60 ml/min/1.73 sqM) Glucose 80 (74-99) mg/dL Calcium 9.4 (8.4-10.2) mg/dL HCG, Quant <2.4 mIU/mL Urine Color Red Urine Appearance Turbid H (Clear) Urine pH 5.5 (5.0-8.0) Ur Specific [place] 1.012 (1.001-1.035) Urine Protein 1+ H (Negative) Urine Glucose (UA) Negative (Negative) Urine Ketones Negative (Negative) Urine Blood Large H (Negative) Urine Nitrite Negative (Negative) Urine Bilirubin Negative (Negative) Urine Urobilinogen 2.0 (<2.0) mg/dL Ur Leukocyte Esterase Trace H (Negative) Urine RBC >182 H (0-5) /hpf Urine WBC 98 H (0-5) /hpf Urine WBC Clumps Many H (None) /hpf Ur Squamous Epith Cells 6 H (0-4) /hpf Urine Bacteria Many H (None) /hpf Urine Mucus Occasional H (None) /hpf Urine Sperm Occasional H (None) /hpf Blood Type Blood Type Confirm O Positive Blood Type Recheck Bld Type Recheck Status Antibody Screen Spec Expiration Date Disposition Clinical Impression: UTI (urinary tract infection), Pelvic pain Disposition: HOME SELF-CARE Condition: Fair Instructions (If sedation given, give patient instructions): Pelvic Pain (ED), Urinary Tract Infection in Women (ED) Additional Instructions: Follow-up with your doctor sheet folder as soon as possible. Prescriptions: Cephalexin [Keflex] 500 mg PO Q6HR 5 Days #20 cap Morphine Sulfate Ir [MSIR] 15 mg PO Q6HR PRN 3 Days #8 tab PRN Reason: Pain Is patient prescribed a controlled substance at d/c from ED?: Yes If prescribed controlled substance>3 days was MAPS reviewed?: Prescribed <3 Days Time of Disposition: 20:50
[2020-01-02 16:30] LABS: Basophils % (A) 0 %; Eosinophils % (A) 1 %; HGB 14.2 gm/dL (11.4-16.0); Lymphocytes # (A) 1.5 k/uL (1.0-4.8); Lymphocytes % (A) 43 %; MCH 33.2 pg (25.0-35.0); MCHC 33.7 g/dL (31.0-37.0); MCV 98.7 fL (80.0-100.0); Mean Platelet Volume 6.3; Monocytes # (A) 0.2 k/uL (0-1.0); Monocytes % (A) 6 %; Neutrophils # (A) 1.7 k/uL (1.3-7.7); Neutrophils % (A) 47 %; Platelet Count 437 k/uL (150-450); RBC 4.26 m/uL (3.80-5.40); RDW 12.4 % (11.5-15.5); WBC 3.6 k/uL (3.8-10.6)
[2020-01-02 16:40] LABS: Partial Thromboplastin Time 26.3 sec (22.0-30.0)
[2020-01-02 16:50] LABS: African American GFR (CKD) >90 (>60 ml/min/1.73 sqM); Anion Gap 9 mmol/L; Blood Urea Nitrogen 14 mg/dL (7-17); Calcium 9.4 mg/dL (8.4-10.2); Carbon Dioxide 25 mmol/L (22-30); Chloride 105 mmol/L (98-107); Glucose 80 mg/dL (74-99); Non-African American GFR(CKD) >90 (>60 ml/min/1.73 sqM); Potassium 4.2 mmol/L (3.5-5.1); Sodium 139 mmol/L (137-145)
--- NOTE | 2020-01-02 17:01 | US ---
EXAMINATION TYPE: US transvaginal plus Dopplers DATE OF EXAM: 01/02/2020 COMPARISON: 12/24/2019 CLINICAL HISTORY: 29-year-old female pelvic pain. TECHNIQUE: Transvaginal (TV). Color Doppler and spectral waveform analysis of the ovarian arteries a nd veins. Date of LMP: 12/15/19 FINDINGS: EXAM MEASUREMENTS: Uterus: 6.8 x 3.8 x 4.9 cm Endometrial Stripe: 0.3 cm Right Ovary: 4.4 x 2.6 x 2.1 cm for a volume of 12.1 mL Left Ovary: 1.5 x 1.6 x 1.6 cm 1. Uterus: Anteverted but otherwise wnl 2. Endometrium: small amount of fluid in the endocervical canal 3. Right Ovary: 2.2 x 1.3 x 1.4cm heterogeneous hypoechoic lesion, probable hemorrhagic cyst 4. Left Ovary: previous 3.7cm ovarian cyst seen on previous, not present on today's ultrasound, nell ent's pain may be from ruptured cyst, small amount of ff in cul de sac also suggests this Spectral, color and waveform doppler imaging shows good arterial and venous flow within the ovaries ; there is no evidence for ovarian torsion. 5. Bilateral Adnexa: wnl 6. Posterior cul-de-sac: mild free fluid IMPRESSION: 1. No sonographic evidence for ovarian torsion. 2. A 2.2 cm hypoechoic lesion in the right ovary, suspect a hemorrhagic cyst/follicle. Follow-up in 6 -8 weeks to ensure clearance. 3. Mild pelvic free fluid likely physiologic.
[2020-01-02 17:07] LABS: HCG,Quantitative Serum <2.4 mIU/mL
[2020-01-02] MEDS ORDERED: HYDROmorphone 1 MG/ML 1 ML SYRINGE IVP STA ×2 (17:35→19:14)
[2020-01-02 19:26] VITALS: RESP 18
[2020-01-02 20:19] LABS: Appearance,Urine Turbid (Clear); Bacteria,Urine Many /hpf; Bilirubin,Urine Negative (Negative); Blood,Urine Large (Negative); Color,Urine Red; Glucose,Urine (UA) Negative (Negative); Ketones,Urine Negative (Negative); Leukocyte Esterase,Urine Trace (Negative); Mucus,Urine Occasional /hpf; Nitrite,Urine Negative (Negative); PH, Urine 5.5 (5.0-8.0); Protein,Urine 1+ (Negative); RBC,Urine >182 /hpf (0-5); Specific Gravity,Urine 1.012 (1.001-1.035); Sperm,Urine Occasional /hpf; Squamous Epithelial Cell,Urine 6 /hpf (0-4); WBC,Urine 98 /hpf (0-5)
[2020-01-02] MEDS ORDERED: cefTRIAXone IN SWFI 1,000 MG/10 ML SYRINGE IVP STA (20:38)
[2020-01-02 21:13] VITALS: BP 112/83; PULSE 90
== END 2020-01-02 21:14 | disposition home or self-care (01) ==
LOC: EC 15:36
DX: N39.0 Urinary tract infection, site not specified (principal); N83.8 Other noninflammatory disorders of ovary, fallopian tube and broad ligament; N93.9 Abnormal uterine and vaginal bleeding, unspecified; F32.9 Major depressive disorder, single episode, unspecified; F43.10 Post-traumatic stress disorder, unspecified; G35 Multiple sclerosis; G43.909 Migraine, unspecified, not intractable, without status migrainosus; Z79.899 Other long term (current) drug therapy; Z88.0 Allergy status to penicillin; Z88.1 Allergy status to other antibiotic agents; Z88.7 Allergy status to serum and vaccine; Z91.040 Latex allergy status; Z88.8 Allergy status to other drugs, medicaments and biological substances; Z88.2 Allergy status to sulfonamides; Z87.42 Personal history of other diseases of the female genital tract; Z98.890 Other specified postprocedural states
CPT/HCPCS: 36415; 86900; 86901; 80048; 85025; 85610; 85730; 86850; 81001; 84702; 87086; 76830; 99284; 96374; 96375 ×2; 96376; 96361; J2270; J0696; J1170; 93975

== ENCOUNTER 2020-01-18 20:35 | Emergency (ER) | payer MEDICARE, OTHER ==
[2020-01-18] MEDS ORDERED: SODIUM CHLORIDE 0.9% 1,000 ML IV STA (20:54)
[2020-01-18] MEDS ORDERED: HYDROmorphone 1 MG/ML 1 ML SYRINGE IVP STA ×2 (20:54→22:11)
[2020-01-18] MEDS ORDERED: ONDANSETRON 4 MG/2 ML VIAL IVP STA (20:54)
[2020-01-18] MEDS ORDERED: KETOROLAC 30 MG/ML 1 ML VIAL IVP STA (20:55)
--- NOTE | 2020-01-18 21:12 | ED ---
Abdominal Pain HPI - General Chief Complaint: Abdominal Pain Stated Complaint: Abd Pain Time Seen by Provider: 01/18/20 20:40 Source: patient Mode of arrival: ambulatory Limitations: no limitations - History of Present Illness Initial Comments: 30-year-old female patient with past medical she significant for ovarian cyst presents to the emergency department today for evaluation of lower abdominal pain. Patient states that she has pain across her lower abdomen is worse on the right side. She denies any abnormal vaginal bleeding or discharge. States her last period was at the end of November however she is on the next amount and does not have regular periods. Patient states that she is in a monogamous relationship and has no concerns for sexually transmitted infections. She denies any fever or chills. States she does get nauseous when her pain is at its worst. Denies any vomiting, constipation, or diarrhea. Denies any hematuria, dysuria, urinary frequency, urinary urgency. Patient denies any recent rash, cough, shortness of breath, chest pain, numbness, tingling, dizziness, weakness, headache, visual changes, or any other complaints. - Related Data Home Medications Medication Instructions Recorded Confirmed Aspirin EC [Ecotrin Low Dose] 81 mg PO DAILY 12/15/19 12/24/19 Cetirizine HCl [Zyrtec] 10 mg PO DAILY 12/15/19 12/24/19 Cholecalciferol (Vitamin D3) 2,000 unit PO DAILY 12/15/19 12/24/19 [Vitamin D3] DULoxetine HCL [Cymbalta] 120 mg PO DAILY 12/15/19 12/24/19 Folic Acid 1 mg PO DAILY 12/15/19 12/24/19 Ibuprofen [Motrin] 800 mg PO Q6H PRN 12/15/19 12/24/19 Ketorolac 30mg/Ml Injection 30 mg IM ONCE PRN MDD max 1 dose 12/15/19 12/24/19 weekly Multivitamins, Thera [Multivitamin 1 tab PO DAILY 12/15/19 12/24/19 (formulary)] Ondansetron [Zofran ODT] 4 mg SL Q12H PRN 12/15/19 12/24/19 Promethazine [Phenergan] 25 mg PO Q6H PRN 12/15/19 12/24/19 Topiramate [Topamax] 200 mg PO HS 12/15/19 12/24/19 tiZANidine [Zanaflex] 4 mg PO HS 12/15/19 12/24/19 diphenhydrAMINE [Benadryl] 25 - 50 mg PO HS PRN 12/24/19 12/24/19 Previous Rx's Medication Instructions Recorded Cephalexin [Keflex] 500 mg PO Q6HR 5 Days #20 cap 01/02/20 Morphine Sulfate Ir [MSIR] 15 mg PO Q6HR PRN 3 Days #8 tab 01/02/20 Allergies Allergy/AdvReac Type Severity Reaction Status Date / Time amoxicillin Allergy Rash/Hives Verified 01/18/20 20:39 clindamycin Allergy Rash/Hives Verified 01/18/20 20:39 diphtheria,pertussis Allergy Rash/Hives Verified 01/18/20 20:39 (acellular),te [From Boostrix Tdap] latex Allergy Rash/Hives Verified 01/18/20 20:39 sertraline [From Zoloft] Allergy Rash/Hives/ Verified 01/18/20 20:39 Seizures Sulfa (Sulfonamide Allergy Rash/Hives Verified 01/18/20 20:39 Antibiotics) Review of Systems ROS Statement: Those systems with pertinent positive or pertinent negative responses have been documented in the HPI. ROS Other: All systems not noted in ROS Statement are negative. Past Medical History Additional Past Medical History / Comment(s): MS- Migraines, malformation type one Past Surgical History: Adenoidectomy, Hernia Repair, Orthopedic Surgery, Tonsillectomy, Tubal Ligation Additional Past Surgical History / Comment(s): cyst removal x 2, brain sx 2018 Past Psychological History: Depression, PTSD Smoking Status: Never smoker Past Alcohol Use History: Occasional Past Drug Use History: Marijuana General Exam Limitations: no limitations General appearance: alert, in no apparent distress, other (This is a well-dev eloped, well-nourished adult female patient in no acute distress. Vital signs upon presentation are temperature 98.1F, pulse 63, respirations 16, blood pressure 114/80, pulse ox 100% on room air.) Respiratory exam: Present: normal lung sounds bilaterally. Absent: respiratory distress, wheezes, rales, rhonchi, stridor Cardiovascular Exam: Present: regular rate, normal rhythm, normal heart sounds. Absent: systolic murmur, diastolic murmur, rubs, gallop, clicks GI/Abdominal exam: Present: soft, tenderness (Lower abdominal tenderness, worse over the left lower quadrant), normal bowel sounds. Absent: distended, guardi ng, rebound, rigid Neurological exam: Present: alert, oriented X3, CN II-XII intact Psychiatric exam: Present: normal affect, normal mood Skin exam: Present: warm, dry, intact, normal color. Absent: rash Course Vital Signs 01/18/20 01/18/20 20:37 21:50 Temperature 98.1 F Pulse Rate 63 91 Respiratory 16 17 Rate Blood Pressure 114/80 120/86 O2 Sat by Pulse 100 100 Oximetry Medical Decision Making - Medical Decision Making 30-year-old female patient presents to the emergency department today for eval uation of lower abdominal pain. She does have history of ovarian cysts. Physical examination reveals lower abdominal tenderness worse on the left side. Labs reviewed and are unremarkable. Ultrasound shows right-sided ovarian cyst measuring 3.3 cm, does appear to be complex. There is some fluid in the cul-de-sac. HCG is negative. Did discuss findings and results with the patient patient be discharged with pain medication. 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 She verbalizes understanding and agrees with this plan. - Lab Data Result diagrams: 01/18/20 21:00 01/18/20 21:00 Lab Results 01/18/20 01/18/20 01/18/20 Range/Units 21:00 21:00 21:00 WBC 9.0 (3.8-10.6) k/uL RBC 4.48 (3.80-5.40) m/uL Hgb 14.2 (11.4-16.0) gm/dL Hct 43.4 (34.0-46.0) % MCV 96.9 (80.0-100.0) fL MCH 31.7 (25.0-35.0) pg MCHC 32.7 (31.0-37.0) g/dL RDW 12.6 (11.5-15.5) % Plt Count 407 (150-450) k/uL Neutrophils % 71 % Lymphocytes % 20 % Monocytes % 6 % Eosinophils % 1 % Basophils % 0 % Neutrophils # 6.3 (1.3-7.7) k/uL Lymphocytes # 1.8 (1.0-4.8) k/uL Monocytes # 0.6 (0-1.0) k/uL Eosinophils # 0.1 (0-0.7) k/uL Basophils # 0.0 (0-0.2) k/uL Sodium (137-145) mmol/L Potassium (3.5-5.1) mmol/L Chloride (98-107) mmol/L Carbon Dioxide (22-30) mmol/L Anion Gap mmol/L BUN (7-17) mg/dL Creatinine (0.52-1.04) mg/dL Est GFR (CKD-EPI)AfAm (>60 ml/min/1.73 sqM) Est GFR (CKD-EPI)NonAf (>60 ml/min/1.73 sqM) Glucose (74-99) mg/dL Calcium (8.4-10.2) mg/dL Total Bilirubin (0.2-1.3) mg/dL AST (14-36) U/L ALT (4-34) U/L Alkaline Phosphatase (38-126) U/L Total Protein (6.3-8.2) g/dL Albumin (3.5-5.0) g/dL Amylase (30-110) U/L Lipase (23-300) U/L Urine Color Light Yellow Urine Appearance Clear (Clear) Urine pH 7.0 (5.0-8.0) Ur Specific [place] 1.003 (1.001-1.035) Urine Protein Negative (Negative) Urine Glucose (UA) Negative (Negative) Urine Ketones Negative (Negative) Urine Blood Negative (Negative) Urine Nitrite Negative (Negative) Urine Bilirubin Negative (Negative) Urine Urobilinogen <2.0 (<2.0) mg/dL Ur Leukocyte Esterase Negative (Negative) Urine HCG, Qual Not Detected (Not Detectd) 01/18/20 Range/Units 21:00 WBC (3.8-10.6) k/uL RBC (3.80-5.40) m/uL Hgb (11.4-16.0) gm/dL Hct (34.0-46.0) % MCV (80.0-100.0) fL MCH (25.0-35.0) pg MCHC (31.0-37.0) g/dL RDW (11.5-15.5) % Plt Count (150-450) k/uL Neutrophils % % Lymphocytes % % Monocytes % % Eosinophils % % Basophils % % Neutrophils # (1.3-7.7) k/uL Lymphocytes # (1.0-4.8) k/uL Monocytes # (0-1.0) k/uL Eosinophils # (0-0.7) k/uL Basophils # (0-0.2) k/uL Sodium 139 (137-145) mmol/L Potassium 3.9 (3.5-5.1) mmol/L Chloride 106 (98-107) mmol/L Carbon Dioxide 23 (22-30) mmol/L Anion Gap 10 mmol/L BUN 13 (7-17) mg/dL Creatinine 0.92 (0.52-1.04) mg/dL Est GFR (CKD-EPI)AfAm >90 (>60 ml/min/1.73 sqM) Est GFR (CKD-EPI)NonAf 85 (>60 ml/min/1.73 sqM) Glucose 94 (74-99) mg/dL Calcium 9.5 (8.4-10.2) mg/dL Total Bilirubin 0.4 (0.2-1.3) mg/dL AST 24 (14-36) U/L ALT 15 (4-34) U/L Alkaline Phosphatase 51 (38-126) U/L Total Protein 7.4 (6.3-8.2) g/dL Albumin 4.7 (3.5-5.0) g/dL Amylase 61 (30-110) U/L Lipase 148 (23-300) U/L Urine Color Urine Appearance (Clear) Urine pH (5.0-8.0) Ur Specific [place] (1.001-1.035) Urine Protein (Negative) Urine Glucose (UA) (Negative) Urine Ketones (Negative) Urine Blood (Negative) Urine Nitrite (Negative) Urine Bilirubin (Negative) Urine Urobilinogen (<2.0) mg/dL Ur Leukocyte Esterase (Negative) Urine HCG, Qual (Not Detectd) - Radiology Data Radiology results: report reviewed Disposition Clinical Impression: Right ovarian cyst, Abdominal pain Disposition: HOME SELF-CARE Condition: Good Instructions (If sedation given, give patient instructions): Ovarian Cyst (ED), Abdominal Pain (ED) Additional Instructions: Apply warm or cool compresses to the abdomen. Take pain medication as directed. Follow-up with your primary care physician [facility] for recheck as soon as possible. Return to the emergency department immediately for any new, worsenin g, or concerning symptoms. Is patient prescribed a controlled substance at d/c from ED?: No Referrals: Nonstaff,Physician [Primary Care Provider] - 1-2 days Time of Disposition: 22:49
[2020-01-18 21:23] LABS: ALT 15 U/L (4-34); AST 24 U/L (14-36); African American GFR (CKD) >90 (>60 ml/min/1.73 sqM); Albumin 4.7 g/dL (3.5-5.0); Alkaline Phosphatase 51 U/L (38-126); Amylase 61 U/L (30-110); Anion Gap 10 mmol/L; Blood Urea Nitrogen 13 mg/dL (7-17); Calcium 9.5 mg/dL (8.4-10.2); Carbon Dioxide 23 mmol/L (22-30); Chloride 106 mmol/L (98-107); Glucose 94 mg/dL (74-99); Non-African American GFR(CKD) 85 (>60 ml/min/1.73 sqM); Potassium 3.9 mmol/L (3.5-5.1); Sodium 139 mmol/L (137-145); Total Bilirubin 0.4 mg/dL (0.2-1.3); Total Protein 7.4 g/dL (6.3-8.2)
[2020-01-18 21:28] LABS: Appearance,Urine Clear (Clear); Bilirubin,Urine Negative (Negative); Blood,Urine Negative (Negative); Color,Urine Light Yellow; Glucose,Urine (UA) Negative (Negative); Ketones,Urine Negative (Negative); Leukocyte Esterase,Urine Negative (Negative); Nitrite,Urine Negative (Negative); Protein,Urine Negative (Negative); Specific Gravity,Urine 1.003 (1.001-1.035); Urobilinogen,Urine <2.0 mg/dL (<2.0)
[2020-01-18 21:51] VITALS: RESP 17
[2020-01-18 21:58] LABS: Basophils % (A) 0 %; Eosinophils # (A) 0.1 k/uL (0-0.7); Eosinophils % (A) 1 %; HCT 43.4 % (34.0-46.0); HGB 14.2 gm/dL (11.4-16.0); Lymphocytes # (A) 1.8 k/uL (1.0-4.8); Lymphocytes % (A) 20 %; MCH 31.7 pg (25.0-35.0); MCHC 32.7 g/dL (31.0-37.0); MCV 96.9 fL (80.0-100.0); Monocytes # (A) 0.6 k/uL (0-1.0); Monocytes % (A) 6 %; Neutrophils # (A) 6.3 k/uL (1.3-7.7); Neutrophils % (A) 71 %; Platelet Count 407 k/uL (150-450); RBC 4.48 m/uL (3.80-5.40); RDW 12.6 % (11.5-15.5)
--- NOTE | 2020-01-18 22:39 | US ---
EXAMINATION TYPE: US transvaginal DATE OF EXAM: 01/18/2020 COMPARISON: 01/02/2020 CLINICAL HISTORY: pelvic pain; hx ovarian cyst. Pelvic pain x 3 days. Hx ovarian cysts. Hx cyst remov ed from left ovary. . TECHNIQUE: Transvaginal (TV). Date of LMP: 12/16/2019 EXAM MEASUREMENTS: Uterus: 7.0 x 5.2 x 3.8 cm Endometrial Stripe: 0.53 cm Right Ovary: 5.4 x 3.7 x 3.5 cm Left Ovary: 3.5 x 2.0 x 2.0 cm 1. Uterus: Anteverted Anechoic fluid-appearing area seen within cervix measurin.4 x 0.5 x 0.3 cm. 2. Endometrium: Measures 0.53 cm. 3. Right Ovary: Measures enlarged. Complex area seen measurin.3 x 3.3 x 2.8 cm. Hypoechoic, hete rogeneous area seen measurin.2 x 2.5 x 1.7 cm. Arterial and venous waveforms seen. 4. Left Ovary: Follicles seen. Arterial waveform seen. Limited venous waveform. Venous waveform not clearly demonstrated. 5. Bilateral Adnexa: Appear wnl 6. Posterior cul-de-sac: Fluid is seen measurin.3 x 0.8 x 0.4 cm. IMPRESSION: There is complex cyst on the right ovary. Increased compared to old exam. No evidence of ovarian tors ion. Normal uterus and endometrium. Cervical cyst noted. No solid adnexal mass.
[2020-01-18] MEDS ORDERED: ACET/COD 300 MG/30 MG STARTER PACK 6 TAB BTL PO STA (22:49)
[2020-01-18 23:08] VITALS: BP 110/80; PULSE 104; TEMP 97.8
== END 2020-01-18 23:10 | disposition home or self-care (01) ==
LOC: EC 20:35
DX: N83.291 Other ovarian cyst, right side (principal); F32.9 Major depressive disorder, single episode, unspecified; G43.909 Migraine, unspecified, not intractable, without status migrainosus; F43.10 Post-traumatic stress disorder, unspecified; Z79.82 Long term (current) use of aspirin; Z79.899 Other long term (current) drug therapy; Z88.0 Allergy status to penicillin; Z88.1 Allergy status to other antibiotic agents; Z88.2 Allergy status to sulfonamides; Z88.7 Allergy status to serum and vaccine; Z88.8 Allergy status to other drugs, medicaments and biological substances; Z98.51 Tubal ligation status
CPT/HCPCS: 36415; 80053; 82150; 83690; 85025; 81003; 81025; 93975; 76830; 99284; 96374; 96375; 96376; 96361; J2405; J1170

== ENCOUNTER 2020-01-19 16:08 | Emergency (ER) | payer MEDICARE, OTHER ==
[2020-01-19] MEDS ORDERED: MORPHINE SULFATE 4 MG/ML SYRINGE IV STA (16:37)
[2020-01-19] MEDS ORDERED: KETOROLAC 30 MG/ML 1 ML VIAL IVP STA (16:37)
[2020-01-19] MEDS ORDERED: SODIUM CHLORIDE 0.9% 500 ML 500 ML IV STA (16:37)
[2020-01-19 17:22] LABS: Appearance,Urine Cloudy (Clear); Bacteria,Urine Moderate /hpf; Bilirubin,Urine Negative (Negative); Blood,Urine Negative (Negative); Color,Urine Yellow; Glucose,Urine (UA) Negative (Negative); Ketones,Urine Negative (Negative); Leukocyte Esterase,Urine Negative (Negative); Nitrite,Urine Negative (Negative); Protein,Urine Negative (Negative); Squamous Epithelial Cell,Urine <1 /hpf (0-4); Urobilinogen,Urine <2.0 mg/dL (<2.0); WBC,Urine 4 /hpf (0-5)
[2020-01-19 17:31] LABS: Basophils % (A) 0 %; Eosinophils # (A) 0.1 k/uL (0-0.7); Eosinophils % (A) 1 %; HCT 41.3 % (34.0-46.0); HGB 13.5 gm/dL (11.4-16.0); Lymphocytes # (A) 1.3 k/uL (1.0-4.8); Lymphocytes % (A) 25 %; MCH 32.2 pg (25.0-35.0); MCHC 32.8 g/dL (31.0-37.0); MCV 98.1 fL (80.0-100.0); Mean Platelet Volume 6.3; Monocytes # (A) 0.3 k/uL (0-1.0); Monocytes % (A) 6 %; Neutrophils # (A) 3.5 k/uL (1.3-7.7); Neutrophils % (A) 66 %; Platelet Count 369 k/uL (150-450); RBC 4.21 m/uL (3.80-5.40); RDW 12.5 % (11.5-15.5); WBC 5.3 k/uL (3.8-10.6)
[2020-01-19 17:43] LABS: ALT 14 U/L (4-34); AST 21 U/L (14-36); African American GFR (CKD) >90 (>60 ml/min/1.73 sqM); Albumin 4.2 g/dL (3.5-5.0); Alkaline Phosphatase 47 U/L (38-126); Amylase 44 U/L (30-110); Anion Gap 6 mmol/L; Blood Urea Nitrogen 9 mg/dL (7-17); Calcium 9.2 mg/dL (8.4-10.2); Carbon Dioxide 23 mmol/L (22-30); Chloride 110 mmol/L (98-107); Glucose 92 mg/dL (74-99); Non-African American GFR(CKD) >90 (>60 ml/min/1.73 sqM); Sodium 139 mmol/L (137-145); Total Bilirubin 0.4 mg/dL (0.2-1.3); Total Protein 6.7 g/dL (6.3-8.2)
--- NOTE | 2020-01-19 18:16 | ED ---
General Adult HPI - General Chief complaint: Abdominal Pain Stated complaint: Abd pain Time Seen by Provider: 01/19/20 16:26 Source: patient, RN notes reviewed, old records reviewed Mode of arrival: wheelchair Limitations: no limitations - History of Present Illness Initial comments: 50-year-old female presenting for reevaluation of lower abdominal pain. Patient was seen yesterday emergency department, diagnosed with ovarian cyst. She has had increasing pain despite Tylenol 3 and Motrin. She denies fever. She denies vomiting or diarrhea. Denies dysuria or hematuria. - Related Data Home Medications Medication Instructions Recorded Confirmed Aspirin EC [Ecotrin Low Dose] 81 mg PO DAILY 12/15/19 01/19/20 Cetirizine HCl [Zyrtec] 10 mg PO DAILY 12/15/19 01/19/20 Cholecalciferol (Vitamin D3) 50 mcg PO DAILY 12/15/19 01/19/20 [Vitamin D3] DULoxetine HCL [Cymbalta] 120 mg PO DAILY 12/15/19 01/19/20 Folic Acid 1 mg PO DAILY 12/15/19 01/19/20 Ibuprofen [Motrin] 800 mg PO Q6H PRN 12/15/19 01/19/20 Ketorolac 30mg/Ml Injection 30 mg IM ONCE PRN MDD max 1 dose 12/15/19 01/19/20 weekly Multivitamins, Thera [Multivitamin 1 tab PO DAILY 12/15/19 01/19/20 (formulary)] Ondansetron [Zofran ODT] 4 mg PO Q12H PRN 12/15/19 01/19/20 Promethazine [Phenergan] 25 mg PO Q6H PRN 12/15/19 01/19/20 Topiramate [Topamax] 200 mg PO HS 12/15/19 01/19/20 tiZANidine [Zanaflex] 4 mg PO HS 12/15/19 01/19/20 diphenhydrAMINE [Benadryl] 25 - 50 mg PO HS PRN 12/24/19 01/19/20 Lo-Loestrin Fe 1-10 1 tab PO DAILY 01/19/20 01/19/20 Morphine Sulfate Ir [MSIR] 15 mg PO Q6H PRN 01/19/20 01/19/20 buPROPion HCL [Wellbutrin SR] 150 mg PO DAILY 01/19/20 01/19/20 Previous Rx's Medication Instructions Recorded Acetaminophen-Codeine 300-30mg 1 tab PO Q6H PRN 3 Days #12 tablet 01/19/20 [Tylenol w/codeine #3] Allergies Allergy/AdvReac Type Severity Reaction Status Date / Time amoxicillin Allergy Rash/Hives Verified 01/19/20 18:12 clindamycin Allergy Rash/Hives Verified 01/19/20 18:12 diphtheria,pertussis Allergy Rash/Hives Verified 01/19/20 18:12 (acellular),te [From Boostrix Tdap] latex Allergy Rash/Hives Verified 01/19/20 18:12 sertraline [From Zoloft] Allergy Rash/Hives/ Verified 01/19/20 18:12 Seizures Sulfa (Sulfonamide Allergy Rash/Hives Verified 01/19/20 18:12 Antibiotics) Review of Systems ROS Statement: Those systems with pertinent positive or pertinent negative responses have been documented in the HPI. ROS Other: All systems not noted in ROS Statement are negative. Past Medical History Additional Past Medical History / Comment(s): MS- Migraines, malformation type one History of Any Multi-Drug Resistant Organisms: None Reported Past Surgical History: Adenoidectomy, Hernia Repair, Orthopedic Surgery, Tonsillectomy, Tubal Ligation Additional Past Surgical History / Comment(s): cyst removal x 2, brain sx 2018 Past Psychological History: Depression, PTSD Smoking Status: Never smoker Past Alcohol Use History: Occasional Past Drug Use History: Marijuana General Exam Limitations: no limitations General appearance: alert, in no apparent distress Head exam: Present: atraumatic, normocephalic Eye exam: Present: normal appearance, PERRL ENT exam: Present: normal exam Neck exam: Present: normal inspection. Absent: tenderness, meningismus Respiratory exam: Present: normal lung sounds bilaterally. Absent: respiratory distress, wheezes Cardiovascular Exam: Present: regular rate, normal rhythm GI/Abdominal exam: Present: soft, tenderness (Bilateral lower abdominal pain). Absent: distended, guarding, rebound Extremities exam: Present: normal inspection, normal capillary refill. Absent: pedal edema, calf tenderness Neurological exam: Present: alert, oriented X3, CN II-XII intact. Absent: motor sensory deficit Psychiatric exam: Present: normal affect, normal mood Skin exam: Present: warm, dry, intact. Absent: cyanosis, diaphoretic Course Vital Signs 01/19/20 16:15 Temperature 98.5 F Pulse Rate 109 H Respiratory 20 Rate Blood Pressure 116/74 O2 Sat by Pulse 100 Oximetry Medical Decision Making - Medical Decision Making 30-year-old female with reevaluation of lower abdominal pain. Diagnosed with ovarian cyst yesterday. Ultrasound revealed a complex cyst on the right ovary measuring approximately [address] is performed to rule out appendicitis, this is negative for acute abdominal finding. Patient does have a 3 cm ovarian cyst on the right. She has normal CBC, normal CMP, negative urinalysis, she is not . She will continue Motrin [id number]. She is prescribed several days and Tylenol 3. - Lab Data Result diagrams: 01/19/20 17:20 01/19/20 17:20 Lab Results 01/19/20 01/19/20 01/19/20 Range/Units 17:13 17:13 17:20 WBC 5.3 (3.8-10.6) k/uL RBC 4.21 (3.80-5.40) m/uL Hgb 13.5 (11.4-16.0) gm/dL Hct 41.3 (34.0-46.0) % MCV 98.1 (80.0-100.0) fL MCH 32.2 (25.0-35.0) pg MCHC 32.8 (31.0-37.0) g/dL RDW 12.5 (11.5-15.5) % Plt Count 369 (150-450) k/uL Neutrophils % 66 % Lymphocytes % 25 % Monocytes % 6 % Eosinophils % 1 % Basophils % 0 % Neutrophils # 3.5 (1.3-7.7) k/uL Lymphocytes # 1.3 (1.0-4.8) k/uL Monocytes # 0.3 (0-1.0) k/uL Eosinophils # 0.1 (0-0.7) k/uL Basophils # 0.0 (0-0.2) k/uL Sodium (137-145) mmol/L Potassium (3.5-5.1) mmol/L Chloride (98-107) mmol/L Carbon Dioxide (22-30) mmol/L Anion Gap mmol/L BUN (7-17) mg/dL Creatinine (0.52-1.04) mg/dL Est GFR (CKD-EPI)AfAm (>60 ml/min/1.73 sqM) Est GFR (CKD-EPI)NonAf (>60 ml/min/1.73 sqM) Glucose (74-99) mg/dL Calcium (8.4-10.2) mg/dL Total Bilirubin (0.2-1.3) mg/dL AST (14-36) U/L ALT (4-34) U/L Alkaline Phosphatase (38-126) U/L Total Protein (6.3-8.2) g/dL Albumin (3.5-5.0) g/dL Amylase (30-110) U/L Lipase (23-300) U/L Urine Color Yellow Urine Appearance Cloudy H (Clear) Urine pH 7.0 (5.0-8.0) Ur Specific [place] 1.010 (1.001-1.035) Urine Protein Negative (Negative) Urine Glucose (UA) Negative (Negative) Urine Ketones Negative (Negative) Urine Blood Negative (Negative) Urine Nitrite Negative (Negative) Urine Bilirubin Negative (Negative) Urine Urobilinogen <2.0 (<2.0) mg/dL Ur Leukocyte Esterase Negative (Negative) Urine WBC 4 (0-5) /hpf Ur Squamous Epith Cells <1 (0-4) /hpf Urine Bacteria Moderate H (None) /hpf Urine HCG, Qual Not Detected (Not Detectd) 01/19/20 Range/Units 17:20 WBC (3.8-10.6) k/uL RBC (3.80-5.40) m/uL Hgb (11.4-16.0) gm/dL Hct (34.0-46.0) % MCV (80.0-100.0) fL MCH (25.0-35.0) pg MCHC (31.0-37.0) g/dL RDW (11.5-15.5) % Plt Count (150-450) k/uL Neutrophils % % Lymphocytes % % Monocytes % % Eosinophils % % Basophils % % Neutrophils # (1.3-7.7) k/uL Lymphocytes # (1.0-4.8) k/uL Monocytes # (0-1.0) k/uL Eosinophils # (0-0.7) k/uL Basophils # (0-0.2) k/uL Sodium 139 (137-145) mmol/L Potassium 4.0 (3.5-5.1) mmol/L Chloride 110 H (98-107) mmol/L Carbon Dioxide 23 (22-30) mmol/L Anion Gap 6 mmol/L BUN 9 (7-17) mg/dL Creatinine 0.76 (0.52-1.04) mg/dL Est GFR (CKD-EPI)AfAm >90 (>60 ml/min/1.73 sqM) Est GFR (CKD-EPI)NonAf >90 (>60 ml/min/1.73 sqM) Glucose 92 (74-99) mg/dL Calcium 9.2 (8.4-10.2) mg/dL Total Bilirubin 0.4 (0.2-1.3) mg/dL AST 21 (14-36) U/L ALT 14 (4-34) U/L Alkaline Phosphatase 47 (38-126) U/L Total Protein 6.7 (6.3-8.2) g/dL Albumin 4.2 (3.5-5.0) g/dL Amylase 44 (30-110) U/L Lipase 77 (23-300) U/L Urine Color Urine Appearance (Clear) Urine pH (5.0-8.0) Ur Specific [place] (1.001-1.035) Urine Protein (Negative) Urine Glucose (UA) (Negative) Urine Ketones (Negative) Urine Blood (Negative) Urine Nitrite (Negative) Urine Bilirubin (Negative) Urine Urobilinogen (<2.0) mg/dL Ur Leukocyte Esterase (Negative) Urine WBC (0-5) /hpf Ur Squamous Epith Cells (0-4) /hpf Urine Bacteria (None) /hpf Urine HCG, Qual (Not Detectd) Disposition Clinical Impression: Abdominal pain, Right ovarian cyst Disposition: HOME SELF-CARE Condition: Good Instructions (If sedation given, give patient instructions): Abdominal Pain (ED) Prescriptions: Acetaminophen-Codeine 300-30mg [Tylenol w/codeine #3] 1 tab PO Q6H PRN 3 Days #12 tablet PRN Reason: Pain Is patient prescribed a controlled substance at d/c from ED?: No Referrals: None,Stated [Primary Care Provider] - 1-2 days Randy Rose MD [REFERRING] - 1-2 days Paris Rabago DO [Doctor of Osteopathic Medicine] - 1-2 days Time of Disposition: 18:43
--- NOTE | 2020-01-19 18:22 | CT ---
EXAMINATION TYPE: CT abdomen pelvis w con DATE OF EXAM: 01/19/2020 COMPARISON: 12/15/2019 HISTORY: Abdominal pain CT DLP: 908.6 mGycm Automated exposure control for dose reduction was used. CONTRAST: Performed with IV Contrast, patient injected with 100 mL of Isovue 300. The lung bases are clear. There is no pleural effusion. Heart size is normal. Liver spleen stomach pa ncreas gallbladder appear normal. Bile ducts are not dilated. There is no adrenal mass. Kidneys show satisfactory contrast opacification. There is no hydronephrosi s. Ureters are not dilated. There is no retroperitoneal adenopathy. Appendix is lateral and appears n ormal. Bladder distends smoothly. There is no inguinal hernia. There is no free fluid in the pelvis. The christine lev is anteverted. There is no inguinal hernia. There is 3 cm cyst on the right ovary. There is no mesenteric edema. There is no ascites or free air. There is no bowel obstruction. Lumbar vertebra have normal spacing and alignment. Posterior elements are intact. Bony pelvis is inta ct. Hip joints appear normal. IMPRESSION: Prominent cyst on the right ovary. Left ovary and cyst decreased compared to old exam. Normal appendix.
[2020-01-19 18:59] VITALS: BP 118/74; PULSE 89; RESP 18; TEMP 97.8
== END 2020-01-19 18:59 | disposition home or self-care (01) ==
LOC: EC 16:08
DX: N83.201 Unspecified ovarian cyst, right side (principal); F32.9 Major depressive disorder, single episode, unspecified; F43.10 Post-traumatic stress disorder, unspecified; G43.909 Migraine, unspecified, not intractable, without status migrainosus; Z79.82 Long term (current) use of aspirin; Z79.899 Other long term (current) drug therapy; Z88.0 Allergy status to penicillin; Z88.2 Allergy status to sulfonamides; Z88.1 Allergy status to other antibiotic agents; Z88.7 Allergy status to serum and vaccine; Z88.8 Allergy status to other drugs, medicaments and biological substances; Z91.040 Latex allergy status
CPT/HCPCS: 36415; 80053; 82150; 83690; 85025; 81001; 81025; 74177; 99285; 96374; 96375; 96361; J2270; J1885; Q9967

== ENCOUNTER 2020-02-21 20:22 | Emergency (ER) | payer MEDICARE, OTHER ==
[2020-02-21 21:29] LABS: Appearance,Urine Clear (Clear); Bilirubin,Urine Negative (Negative); Blood,Urine Negative (Negative); Color,Urine Light Yellow; Glucose,Urine (UA) Negative (Negative); Ketones,Urine Negative (Negative); Leukocyte Esterase,Urine Negative (Negative); Nitrite,Urine Negative (Negative); Protein,Urine Negative (Negative); Specific Gravity,Urine 1.001 (1.001-1.035); Urobilinogen,Urine <2.0 mg/dL (<2.0)
[2020-02-21] MEDS ORDERED: MORPHINE SULFATE 4 MG/ML SYRINGE IV STA (22:03)
[2020-02-21] MEDS ORDERED: SODIUM CHLORIDE 0.9% 1,000 ML IV STA (22:03)
[2020-02-21 22:46] LABS: Basophils % (A) 0 %; Eosinophils # (A) 0.1 k/uL (0-0.7); Eosinophils % (A) 1 %; HCT 44.1 % (34.0-46.0); HGB 14.7 gm/dL (11.4-16.0); Lymphocytes # (A) 2.1 k/uL (1.0-4.8); Lymphocytes % (A) 24 %; MCH 31.5 pg (25.0-35.0); MCHC 33.4 g/dL (31.0-37.0); MCV 94.4 fL (80.0-100.0); Mean Platelet Volume 6.2; Monocytes # (A) 0.4 k/uL (0-1.0); Monocytes % (A) 5 %; Neutrophils # (A) 5.9 k/uL (1.3-7.7); Neutrophils % (A) 69 %; Platelet Count 433 k/uL (150-450); RBC 4.67 m/uL (3.80-5.40); RDW 12.4 % (11.5-15.5); WBC 8.6 k/uL (3.8-10.6)
[2020-02-21 22:52] VITALS: RESP 18
[2020-02-21 23:17] LABS: ALT 14 U/L (4-34); AST 27 U/L (14-36); African American GFR (CKD) >90 (>60 ml/min/1.73 sqM); Albumin 4.8 g/dL (3.5-5.0); Alkaline Phosphatase 60 U/L (38-126); Anion Gap 11 mmol/L; Blood Urea Nitrogen 11 mg/dL (7-17); Calcium 9.7 mg/dL (8.4-10.2); Carbon Dioxide 24 mmol/L (22-30); Chloride 104 mmol/L (98-107); Glucose 86 mg/dL (74-99); Non-African American GFR(CKD) 85 (>60 ml/min/1.73 sqM); Potassium 3.8 mmol/L (3.5-5.1); Sodium 139 mmol/L (137-145); Total Bilirubin 0.6 mg/dL (0.2-1.3); Total Protein 7.7 g/dL (6.3-8.2)
--- NOTE | 2020-02-21 23:23 | US ---
EXAMINATION TYPE: US transvaginal DATE OF EXAM: 02/21/2020 COMPARISON: US 01/18/2020 CLINICAL HISTORY: bilateral lower abd pain. Pt states LLQ pain TECHNIQUE: Transvaginal (TV). Transvaginal sonographic images of the pelvis were acquired. . Date of LMP: 02/11/2020 EXAM MEASUREMENTS: Uterus: 6.7 x 3.9 x 4.7 cm Endometrial Stripe: 0.8 cm Right Ovary: 3.7 x 2.0 x 2.6 cm Left Ovary: 3.3 x 3.4 x 3.1 cm 1. Uterus: Anteverted wnl 2. Endometrium: wnl 3. Right Ovary: wnl 4. Left Ovary: Cyst= 2.3 x 2.0 x 2.2 cm Spectral, color and waveform doppler imaging shows good arterial and venous flow within the ovaries ; there is no evidence for ovarian torsion. 5. Bilateral Adnexa: wnl 6. Posterior cul-de-sac: wnl IMPRESSION: There is a simple cyst on the left ovary. No solid adnexal mass. No evidence of ovarian torsion. Norm al uterus and endometrium.
[2020-02-21] MEDS ORDERED: MORPHINE SULFATE 4 MG/ML SYRINGE IVP STA (23:46)
[2020-02-21] MEDS ORDERED: ACET/COD 300 MG/30 MG STARTER PACK 6 TAB BTL PO STA (23:46)
--- NOTE | 2020-02-21 23:55 | ED ---
Abdominal Pain HPI - General Chief Complaint: Abdominal Pain Stated Complaint: Abd Pain Source: patient Mode of arrival: ambulatory Limitations: no limitations - History of Present Illness Initial Comments: 30-year-old female who presents emergency Department with reported bilateral lower pelvic pain. Patient reports to a history of previous ruptured ovarian cysts and states that the pain feels similar. Reports the pain has been going on for over a week now. Worse in the left lower quadrant. Denies any provocative factors. Has been taking Toradol at home for pain without improvement. Reports associated nausea without vomiting. No abnormal vaginal discharge. Reports her last menstrual cycle was 2 weeks ago. Denies any abnormal vaginal bleeding. No dysuria, hematuria or difficulty voiding. Denies changes in her bowel habits to include melenic stools or hematochezia. Follows closely with Dr. Crowder who is her OB and has treated her for her previous pain in the past. OB attempting to get her on a new control in order to control her symptoms. Denies ripping or tearing sensation to her back. Denies any numbness, tingling or weakness in her lower externally is. No diarrhea or constipation. No fevers or chills. No other alleviating, precipitating factors - Related Data Home Medications Medication Instructions Recorded Confirmed Aspirin EC [Ecotrin Low Dose] 81 mg PO DAILY 12/15/19 01/19/20 Cetirizine HCl [Zyrtec] 10 mg PO DAILY 12/15/19 01/19/20 Cholecalciferol (Vitamin D3) 50 mcg PO DAILY 12/15/19 01/19/20 [Vitamin D3] DULoxetine HCL [Cymbalta] 120 mg PO DAILY 12/15/19 01/19/20 Folic Acid 1 mg PO DAILY 12/15/19 01/19/20 Ibuprofen [Motrin] 800 mg PO Q6H PRN 12/15/19 01/19/20 Ketorolac 30mg/Ml Injection 30 mg IM ONCE PRN MDD max 1 dose 12/15/19 01/19/20 weekly Multivitamins, Thera [Multivitamin 1 tab PO DAILY 12/15/19 01/19/20 (formulary)] Ondansetron [Zofran ODT] 4 mg PO Q12H PRN 12/15/19 01/19/20 Promethazine [Phenergan] 25 mg PO Q6H PRN 12/15/19 01/19/20 Topiramate [Topamax] 200 mg PO HS 12/15/19 01/19/20 tiZANidine [Zanaflex] 4 mg PO HS 12/15/19 01/19/20 diphenhydrAMINE [Benadryl] 25 - 50 mg PO HS PRN 12/24/19 01/19/20 Lo-Loestrin Fe 1-10 1 tab PO DAILY 01/19/20 01/19/20 Morphine Sulfate Ir [MSIR] 15 mg PO Q6H PRN 01/19/20 01/19/20 buPROPion HCL [Wellbutrin SR] 150 mg PO DAILY 01/19/20 01/19/20 Previous Rx's Medication Instructions Recorded Acetaminophen-Codeine 300-30mg 1 tab PO Q6H PRN 3 Days #12 tablet 01/19/20 [Tylenol w/codeine #3] Acetaminophen-Codeine 300-30mg 1 tab PO Q6H PRN 3 Days #12 tablet 02/21/20 [Tylenol w/codeine #3] Allergies Allergy/AdvReac Type Severity Reaction Status Date / Time amoxicillin Allergy Rash/Hives Verified 02/21/20 20:49 clindamycin Allergy Rash/Hives Verified 02/21/20 20:49 diphtheria,pertussis Allergy Rash/Hives Verified 02/21/20 20:49 (acellular),te [From Boostrix Tdap] latex Allergy Rash/Hives Verified 02/21/20 20:49 sertraline [From Zoloft] Allergy Rash/Hives/ Verified 02/21/20 20:49 Seizures Sulfa (Sulfonamide Allergy Rash/Hives Verified 02/21/20 20:49 Antibiotics) Review of Systems ROS Statement: Those systems with pertinent positive or pertinent negative responses have been documented in the HPI. ROS Other: All systems not noted in ROS Statement are negative. Past Medical History Additional Past Medical History / Comment(s): MS- Migraines, malformation type one History of Any Multi-Drug Resistant Organisms: None Reported Past Surgical History: Adenoidectomy, Hernia Repair, Orthopedic Surgery, Tonsillectomy, Tubal Ligation Additional Past Surgical History / Comment(s): cyst removal x 2, brain sx 2018 Past Psychological History: Depression, PTSD Smoking Status: Never smoker Past Alcohol Use History: Occasional Past Drug Use History: Marijuana General Exam Limitations: no limitations Course Vital Signs 02/21/20 02/21/20 02/22/20 20:46 22:50 00:23 Temperature 98.4 F 97.9 F Pulse Rate 120 H 109 H 101 H Respiratory 19 18 18 Rate Blood Pressure 116/82 122/89 124/86 O2 Sat by Pulse 100 100 96 Oximetry Medical Decision Making - Medical Decision Making Upon arrival patient was placed into room 13. A thorough history and physical exam is performed. Periphery is established. Laboratory studies were conduct ed. Patient provided urine sample. She was given 4 mg of morphine for pain control. Laboratory studies are unremarkable. Urinalysis is negative. Transvaginal ultrasound demonstrates a simple cyst on the left ovary. No solid mass. No evidence of torsion. Patient is reevaluated and reports improvement in her symptoms. I discussed diagnosis and treatment options. Patient will be discharged home at this time for prescription of Tylenol #3. Follow-up Dr. Crowder. Return to the emergency room for any new or worsening symptoms. Patient agreed to this and she was discharged home in stable condition - Lab Data Result diagrams: 02/21/20 22:09 02/21/20 22:09 Lab Results 02/21/20 02/21/20 02/21/20 Range/Units 21:13 21:13 22:09 WBC 8.6 (3.8-10.6) k/uL RBC 4.67 (3.80-5.40) m/uL Hgb 14.7 (11.4-16.0) gm/dL Hct 44.1 (34.0-46.0) % MCV 94.4 (80.0-100.0) fL MCH 31.5 (25.0-35.0) pg MCHC 33.4 (31.0-37.0) g/dL RDW 12.4 (11.5-15.5) % Plt Count 433 (150-450) k/uL Neutrophils % 69 % Lymphocytes % 24 % Monocytes % 5 % Eosinophils % 1 % Basophils % 0 % Neutrophils # 5.9 (1.3-7.7) k/uL Lymphocytes # 2.1 (1.0-4.8) k/uL Monocytes # 0.4 (0-1.0) k/uL Eosinophils # 0.1 (0-0.7) k/uL Basophils # 0.0 (0-0.2) k/uL Sodium (137-145) mmol/L Potassium (3.5-5.1) mmol/L Chloride (98-107) mmol/L Carbon Dioxide (22-30) mmol/L Anion Gap mmol/L BUN (7-17) mg/dL Creatinine (0.52-1.04) mg/dL Est GFR (CKD-EPI)AfAm (>60 ml/min/1.73 sqM) Est GFR (CKD-EPI)NonAf (>60 ml/min/1.73 sqM) Glucose (74-99) mg/dL Plasma Lactic Acid Krish (0.7-2.0) mmol/L Calcium (8.4-10.2) mg/dL Total Bilirubin (0.2-1.3) mg/dL AST (14-36) U/L ALT (4-34) U/L Alkaline Phosphatase (38-126) U/L Total Protein (6.3-8.2) g/dL Albumin (3.5-5.0) g/dL Lipase (23-300) U/L Urine Color Light Yellow Urine Appearance Clear (Clear) Urine pH 6.0 (5.0-8.0) Ur Specific [place] 1.001 (1.001-1.035) Urine Protein Negative (Negative) Urine Glucose (UA) Negative (Negative) Urine Ketones Negative (Negative) Urine Blood Negative (Negative) Urine Nitrite Negative (Negative) Urine Bilirubin Negative (Negative) Urine Urobilinogen <2.0 (<2.0) mg/dL Ur Leukocyte Esterase Negative (Negative) Urine HCG, Qual Not Detected (Not Detectd) 02/21/20 02/21/20 Range/Units 22:09 22:09 WBC (3.8-10.6) k/uL RBC (3.80-5.40) m/uL Hgb (11.4-16.0) gm/dL Hct (34.0-46.0) % MCV (80.0-100.0) fL MCH (25.0-35.0) pg MCHC (31.0-37.0) g/dL RDW (11.5-15.5) % Plt Count (150-450) k/uL Neutrophils % % Lymphocytes % % Monocytes % % Eosinophils % % Basophils % % Neutrophils # (1.3-7.7) k/uL Lymphocytes # (1.0-4.8) k/uL Monocytes # (0-1.0) k/uL Eosinophils # (0-0.7) k/uL Basophils # (0-0.2) k/uL Sodium 139 (137-145) mmol/L Potassium 3.8 (3.5-5.1) mmol/L Chloride 104 (98-107) mmol/L Carbon Dioxide 24 (22-30) mmol/L Anion Gap 11 mmol/L BUN 11 (7-17) mg/dL Creatinine 0.92 (0.52-1.04) mg/dL Est GFR (CKD-EPI)AfAm >90 (>60 ml/min/1.73 sqM) Est GFR (CKD-EPI)NonAf 85 (>60 ml/min/1.73 sqM) Glucose 86 (74-99) mg/dL Plasma Lactic Acid Krish 0.8 (0.7-2.0) mmol/L Calcium 9.7 (8.4-10.2) mg/dL Total Bilirubin 0.6 (0.2-1.3) mg/dL AST 27 (14-36) U/L ALT 14 (4-34) U/L Alkaline Phosphatase 60 (38-126) U/L Total Protein 7.7 (6.3-8.2) g/dL Albumin 4.8 (3.5-5.0) g/dL Lipase 78 (23-300) U/L Urine Color Urine Appearance (Clear) Urine pH (5.0-8.0) Ur Specific [place] (1.001-1.035) Urine Protein (Negative) Urine Glucose (UA) (Negative) Urine Ketones (Negative) Urine Blood (Negative) Urine Nitrite (Negative) Urine Bilirubin (Negative) Urine Urobilinogen (<2.0) mg/dL Ur Leukocyte Esterase (Negative) Urine HCG, Qual (Not Detectd) Disposition Clinical Impression: Pelvic pain, Ovarian cyst Disposition: HOME SELF-CARE Condition: Stable Instructions (If sedation given, give patient instructions): Pelvic Pain in Women (ED) Additional Instructions: Please follow-up with Dr. Crowder. Return to the emergency room for any new or worsening symptoms Prescriptions: Acetaminophen-Codeine 300-30mg [Tylenol w/codeine #3] 1 tab PO Q6H PRN 3 Days #12 tablet PRN Reason: Pain Is patient prescribed a controlled substance at d/c from ED?: Yes When asked, does pt state using other controlled substances?: No If prescribed controlled substance>3 days was MAPS reviewed?: Prescribed <3 Days If opioid is for acute pain is fill amount 7 days or less?: Yes If Rx opioid, was Start Talking consent form obtained?: Yes Referrals: Nonstaff,Physician [Primary Care Provider] - 1-2 days Time of Disposition: 23:55
[2020-02-22 00:26] VITALS: BP 124/86; PULSE 101; TEMP 97.9
== END 2020-02-22 00:26 | disposition home or self-care (01) ==
LOC: EC 20:22
DX: N83.292 Other ovarian cyst, left side (principal); G43.909 Migraine, unspecified, not intractable, without status migrainosus; F32.9 Major depressive disorder, single episode, unspecified; Z79.899 Other long term (current) drug therapy; Z79.82 Long term (current) use of aspirin; Z88.0 Allergy status to penicillin; Z88.1 Allergy status to other antibiotic agents; Z91.040 Latex allergy status; Z88.2 Allergy status to sulfonamides; Z88.8 Allergy status to other drugs, medicaments and biological substances; Z98.51 Tubal ligation status; Z98.890 Other specified postprocedural states
CPT/HCPCS: 36415; 80053; 83605; 83690; 85025; 81003; 81025; 93975; 76830; 99284; 96374; 96376; 96361; J2270

== ENCOUNTER 2020-03-13 15:54 | Emergency (ER) | payer MEDICARE, OTHER ==
[2020-03-13] MEDS ORDERED: SODIUM CHLORIDE 0.9% 1,000 ML IV STA (16:27)
[2020-03-13] MEDS ORDERED: HYDROmorphone 0.5 MG/0.5 ML SYRINGE IVP STA ×2 (16:27→17:58)
--- NOTE | 2020-03-13 16:31 | ED ---
Abdominal Pain HPI - General Chief Complaint: Abdominal Pain Stated Complaint: lower abd pain Time Seen by Provider: 03/13/20 16:12 Source: patient Mode of arrival: wheelchair Limitations: no limitations - History of Present Illness Initial Comments: Patient is a 30-year-old female with history of ovarian cysts presenting to the emergency department with a chief complaint of abdominal pain. Patient reports this pain started several days ago in the left lower quadrant region. Status is somewhat typical of her ovarian cyst. Patient states she's been in the emergency room multiple times to have an ovarian torsion rule out. Patient reports having 2 abdominal procedures to remove ovarian cyst. She denies any nausea vomiting diarrhea. Denies any vaginal or urinary symptoms. Denies taking medication to alleviate the symptoms. - Related Data Home Medications Medication Instructions Recorded Confirmed Aspirin EC [Ecotrin Low Dose] 81 mg PO DAILY 12/15/19 01/19/20 Cetirizine HCl [Zyrtec] 10 mg PO DAILY 12/15/19 01/19/20 Cholecalciferol (Vitamin D3) 50 mcg PO DAILY 12/15/19 01/19/20 [Vitamin D3] DULoxetine HCL [Cymbalta] 120 mg PO DAILY 12/15/19 01/19/20 Folic Acid 1 mg PO DAILY 12/15/19 01/19/20 Ibuprofen [Motrin] 800 mg PO Q6H PRN 12/15/19 01/19/20 Ketorolac 30mg/Ml Injection 30 mg IM ONCE PRN MDD max 1 dose 12/15/19 01/19/20 weekly Multivitamins, Thera [Multivitamin 1 tab PO DAILY 12/15/19 01/19/20 (formulary)] Ondansetron [Zofran ODT] 4 mg PO Q12H PRN 12/15/19 01/19/20 Promethazine [Phenergan] 25 mg PO Q6H PRN 12/15/19 01/19/20 Topiramate [Topamax] 200 mg PO HS 12/15/19 01/19/20 tiZANidine [Zanaflex] 4 mg PO HS 12/15/19 01/19/20 diphenhydrAMINE [Benadryl] 25 - 50 mg PO HS PRN 12/24/19 01/19/20 Lo-Loestrin Fe 1-10 1 tab PO DAILY 01/19/20 01/19/20 Morphine Sulfate Ir [MSIR] 15 mg PO Q6H PRN 01/19/20 01/19/20 buPROPion HCL [Wellbutrin SR] 150 mg PO DAILY 01/19/20 01/19/20 Previous Rx's Medication Instructions Recorded Acetaminophen-Codeine 300-30mg 1 tab PO Q6H PRN 3 Days #12 tablet 01/19/20 [Tylenol w/codeine #3] Acetaminophen-Codeine 300-30mg 1 tab PO Q6H PRN 3 Days #12 tablet 02/21/20 [Tylenol w/codeine #3] Allergies Allergy/AdvReac Type Severity Reaction Status Date / Time amoxicillin Allergy Rash/Hives Verified 03/13/20 16:02 clindamycin Allergy Rash/Hives Verified 03/13/20 16:02 diphtheria,pertussis Allergy Rash/Hives Verified 03/13/20 16:02 (acellular),te [From Boostrix Tdap] latex Allergy Rash/Hives Verified 03/13/20 16:02 sertraline [From Zoloft] Allergy Rash/Hives/ Verified 03/13/20 16:02 Seizures Sulfa (Sulfonamide Allergy Rash/Hives Verified 03/13/20 16:02 Antibiotics) Review of Systems ROS Statement: Those systems with pertinent positive or pertinent negative responses have been documented in the HPI. ROS Other: All systems not noted in ROS Statement are negative. Past Medical History Additional Past Medical History / Comment(s): MS- Migraines, malformation type one History of Any Multi-Drug Resistant Organisms: None Reported Past Surgical History: Adenoidectomy, Hernia Repair, Orthopedic Surgery, Tonsillectomy, Tubal Ligation Additional Past Surgical History / Comment(s): cyst removal x 2, brain sx 2018 Past Psychological History: Depression, PTSD Smoking Status: Never smoker Past Alcohol Use History: Occasional Past Drug Use History: Marijuana General Exam Limitations: no limitations General appearance: alert, in no apparent distress Head exam: Present: atraumatic, normocephalic, normal inspection Eye exam: Present: normal appearance, PERRL, EOMI Pupils: Present: normal accommodation ENT exam: Present: normal exam, normal oropharynx, mucous membranes moist, TM's normal bilaterally, normal external ear exam Neck exam: Present: normal inspection, full ROM. Absent: tenderness Respiratory exam: Present: normal lung sounds bilaterally. Absent: respiratory distress, wheezes, rales Cardiovascular Exam: Present: regular rate, normal rhythm, normal heart sounds GI/Abdominal exam: Present: soft, tenderness (left lower quadrant). Absent: distended Extremities exam: Present: normal inspection, full ROM, normal capillary refill. Absent: tenderness Back exam: Present: normal inspection, full ROM. Absent: tenderness, CVA tenderness (R), CVA tenderness (L) Neurological exam: Present: alert, oriented X3, CN II-XII intact, normal gait Psychiatric exam: Present: normal affect, normal mood Skin exam: Present: warm, dry, intact, normal color Course Vital Signs 03/13/20 03/13/20 16:00 18:29 Temperature 98.2 F 97.8 F Pulse Rate 90 78 Respiratory 18 16 Rate Blood Pressure 102/74 121/74 O2 Sat by Pulse 99 98 Oximetry Medical Decision Making - Medical Decision Making Patient is 30-year-old female presenting to emergency department with a chief complaint of abdominal pain. Patient does have history of recurrent ovarian cysts. Patient reports she has been here multiple times for evaluation to rule out an ovarian torsion. States her pain is located lower abdominal region. Denies any urinary or vaginal symptoms. Transvaginal ultrasound performed reveals no signs of ovarian torsion. No ovarian cysts detected. Patient was given analgesia. CBC CMP is unremarkable. UA reveals small amounts of blood but no red blood cells. No signs of a urinary tract infection. No signs of . Patient was advised to follow-up with her primary care physician. He should return parameters were thoroughly discussed the patient was understanding and agreeable. Case discussed with physician. - Lab Data Result diagrams: 03/13/20 16:51 03/13/20 16:51 Lab Results 03/13/20 03/13/20 03/13/20 Range/Units 16:51 16:51 16:51 WBC 4.6 (3.8-10.6) k/uL RBC 4.51 (3.80-5.40) m/uL Hgb 14.1 (11.4-16.0) gm/dL Hct 42.4 (34.0-46.0) % MCV 94.0 (80.0-100.0) fL MCH 31.3 (25.0-35.0) pg MCHC 33.3 (31.0-37.0) g/dL RDW 12.3 (11.5-15.5) % Plt Count 382 (150-450) k/uL Neutrophils % 65 % Lymphocytes % 27 % Monocytes % 5 % Eosinophils % 1 % Basophils % 1 % Neutrophils # 3.0 (1.3-7.7) k/uL Lymphocytes # 1.2 (1.0-4.8) k/uL Monocytes # 0.2 (0-1.0) k/uL Eosinophils # 0.0 (0-0.7) k/uL Basophils # 0.0 (0-0.2) k/uL Sodium (137-145) mmol/L Potassium (3.5-5.1) mmol/L Chloride (98-107) mmol/L Carbon Dioxide (22-30) mmol/L Anion Gap mmol/L BUN (7-17) mg/dL Creatinine (0.52-1.04) mg/dL Est GFR (CKD-EPI)AfAm (>60 ml/min/1.73 sqM) Est GFR (CKD-EPI)NonAf (>60 ml/min/1.73 sqM) Glucose (74-99) mg/dL Calcium (8.4-10.2) mg/dL Total Bilirubin (0.2-1.3) mg/dL AST (14-36) U/L ALT (4-34) U/L Alkaline Phosphatase (38-126) U/L Total Protein (6.3-8.2) g/dL Albumin (3.5-5.0) g/dL Urine Color Light Yellow Urine Appearance Cloudy H (Clear) Urine pH 7.0 (5.0-8.0) Ur Specific [place] 1.003 (1.001-1.035) Urine Protein Negative (Negative) Urine Glucose (UA) Negative (Negative) Urine Ketones Negative (Negative) Urine Blood Small H (Negative) Urine Nitrite Negative (Negative) Urine Bilirubin Negative (Negative) Urine Urobilinogen <2.0 (<2.0) mg/dL Ur Leukocyte Esterase Small H (Negative) Urine RBC 1 (0-5) /hpf Urine WBC 6 H (0-5) /hpf Ur Squamous Epith Cells 9 H (0-4) /hpf Urine Bacteria Rare H (None) /hpf Urine HCG, Qual Not Detected (Not Detectd) 03/13/20 Range/Units 16:51 WBC (3.8-10.6) k/uL RBC (3.80-5.40) m/uL Hgb (11.4-16.0) gm/dL Hct (34.0-46.0) % MCV (80.0-100.0) fL MCH (25.0-35.0) pg MCHC (31.0-37.0) g/dL RDW (11.5-15.5) % Plt Count (150-450) k/uL Neutrophils % % Lymphocytes % % Monocytes % % Eosinophils % % Basophils % % Neutrophils # (1.3-7.7) k/uL Lymphocytes # (1.0-4.8) k/uL Monocytes # (0-1.0) k/uL Eosinophils # (0-0.7) k/uL Basophils # (0-0.2) k/uL Sodium 139 (137-145) mmol/L Potassium 3.9 (3.5-5.1) mmol/L Chloride 108 H (98-107) mmol/L Carbon Dioxide 23 (22-30) mmol/L Anion Gap 8 mmol/L BUN 11 (7-17) mg/dL Creatinine 0.87 (0.52-1.04) mg/dL Est GFR (CKD-EPI)AfAm >90 (>60 ml/min/1.73 sqM) Est GFR (CKD-EPI)NonAf >90 (>60 ml/min/1.73 sqM) Glucose 95 (74-99) mg/dL Calcium 9.7 (8.4-10.2) mg/dL Total Bilirubin 0.5 (0.2-1.3) mg/dL AST 22 (14-36) U/L ALT 15 (4-34) U/L Alkaline Phosphatase 52 (38-126) U/L Total Protein 7.6 (6.3-8.2) g/dL Albumin 4.8 (3.5-5.0) g/dL Urine Color Urine Appearance (Clear) Urine pH (5.0-8.0) Ur Specific [place] (1.001-1.035) Urine Protein (Negative) Urine Glucose (UA) (Negative) Urine Ketones (Negative) Urine Blood (Negative) Urine Nitrite (Negative) Urine Bilirubin (Negative) Urine Urobilinogen (<2.0) mg/dL Ur Leukocyte Esterase (Negative) Urine RBC (0-5) /hpf Urine WBC (0-5) /hpf Ur Squamous Epith Cells (0-4) /hpf Urine Bacteria (None) /hpf Urine HCG, Qual (Not Detectd) Disposition Clinical Impression: Abdominal pain Disposition: HOME SELF-CARE Condition: Stable Instructions (If sedation given, give patient instructions): Abdominal Pain (ED) Additional Instructions: Follow-up with your e marketing specialist. Return to emergency department if symptoms worsen. Is patient prescribed a controlled substance at d/c from ED?: No Referrals: Nonstaff,Physician [Primary Care Provider] - 1-2 days Time of Disposition: 18:19
[2020-03-13 17:09] LABS: Basophils % (A) 1 %; Eosinophils % (A) 1 %; HCT 42.4 % (34.0-46.0); HGB 14.1 gm/dL (11.4-16.0); Lymphocytes # (A) 1.2 k/uL (1.0-4.8); Lymphocytes % (A) 27 %; MCH 31.3 pg (25.0-35.0); MCHC 33.3 g/dL (31.0-37.0); Mean Platelet Volume 6.2; Monocytes # (A) 0.2 k/uL (0-1.0); Monocytes % (A) 5 %; Neutrophils % (A) 65 %; Platelet Count 382 k/uL (150-450); RBC 4.51 m/uL (3.80-5.40); RDW 12.3 % (11.5-15.5); WBC 4.6 k/uL (3.8-10.6)
[2020-03-13 17:19] LABS: Appearance,Urine Cloudy (Clear); Bacteria,Urine Rare /hpf; Bilirubin,Urine Negative (Negative); Blood,Urine Small (Negative); Color,Urine Light Yellow; Glucose,Urine (UA) Negative (Negative); Ketones,Urine Negative (Negative); Leukocyte Esterase,Urine Small (Negative); Nitrite,Urine Negative (Negative); Protein,Urine Negative (Negative); RBC,Urine 1 /hpf (0-5); Specific Gravity,Urine 1.003 (1.001-1.035); Squamous Epithelial Cell,Urine 9 /hpf (0-4); Urobilinogen,Urine <2.0 mg/dL (<2.0); WBC,Urine 6 /hpf (0-5)
[2020-03-13 17:46] LABS: ALT 15 U/L (4-34); AST 22 U/L (14-36); African American GFR (CKD) >90 (>60 ml/min/1.73 sqM); Albumin 4.8 g/dL (3.5-5.0); Alkaline Phosphatase 52 U/L (38-126); Anion Gap 8 mmol/L; Blood Urea Nitrogen 11 mg/dL (7-17); Calcium 9.7 mg/dL (8.4-10.2); Carbon Dioxide 23 mmol/L (22-30); Chloride 108 mmol/L (98-107); Glucose 95 mg/dL (74-99); Non-African American GFR(CKD) >90 (>60 ml/min/1.73 sqM); Potassium 3.9 mmol/L (3.5-5.1); Sodium 139 mmol/L (137-145); Total Bilirubin 0.5 mg/dL (0.2-1.3); Total Protein 7.6 g/dL (6.3-8.2)
--- NOTE | 2020-03-13 18:06 | US ---
EXAMINATION TYPE: US transvaginal DATE OF EXAM: 03/13/2020 COMPARISON: 02/21/2020 CLINICAL HISTORY: r/o torsion. TECHNIQUE: Transvaginal (TV). Date of LMP: 03-08-20 EXAM MEASUREMENTS: Uterus: 5.7 x 3.1 x 4.3 cm Endometrial Stripe: 0.2 cm Right Ovary: 2.3 x 2.0 x1.8 cm Left Ovary: 3.4 x 1.8 x 1.8 cm 1. Uterus: Anteverted wnl 2. Endometrium: wnl 3. Right Ovary: wnl, no cysts seen on today's study 4. Left Ovary: wnl, no cysts seen on today's study Spectral, color and waveform doppler imaging shows good arterial and venous flow within the ovaries ; there is no evidence for ovarian torsion. 5. Bilateral Adnexa: wnl 6. Posterior cul-de-sac: wnl IMPRESSION: Normal transvaginal pelvic sonogram. No evidence of ovarian torsion.
[2020-03-13] MEDS ORDERED: ACET/COD 300 MG/30 MG STARTER PACK 6 TAB BTL PO STA (18:19)
[2020-03-13 18:30] VITALS: BP 121/74; PULSE 78; RESP 16; TEMP 97.8
== END 2020-03-13 18:29 | disposition home or self-care (01) ==
LOC: EC 15:54
DX: R10.32 Left lower quadrant pain (principal); F32.9 Major depressive disorder, single episode, unspecified; G43.909 Migraine, unspecified, not intractable, without status migrainosus; Z79.82 Long term (current) use of aspirin; Z79.899 Other long term (current) drug therapy; Z88.0 Allergy status to penicillin; Z88.1 Allergy status to other antibiotic agents; Z91.040 Latex allergy status; Z88.2 Allergy status to sulfonamides; Z88.8 Allergy status to other drugs, medicaments and biological substances; Z98.51 Tubal ligation status
CPT/HCPCS: 36415; 80053; 85025; 81001; 81025; 93975; 76830; 99284; 96374; 96376; 96361; J1170

== ENCOUNTER 2020-03-22 15:13 | Emergency (ER) | payer MEDICARE, OTHER ==
[2020-03-22 15:21] VITALS: RESP 18; TEMP 98.7
[2020-03-22 16:17] LABS: Basophils % (A) 0 %; Eosinophils % (A) 0 %; HCT 42.3 % (34.0-46.0); HGB 14.4 gm/dL (11.4-16.0); Lymphocytes # (A) 1.4 k/uL (1.0-4.8); Lymphocytes % (A) 30 %; MCH 33.4 pg (25.0-35.0); MCHC 34.2 g/dL (31.0-37.0); MCV 97.6 fL (80.0-100.0); Mean Platelet Volume 6.2; Monocytes # (A) 0.3 k/uL (0-1.0); Monocytes % (A) 6 %; Neutrophils # (A) 2.9 k/uL (1.3-7.7); Neutrophils % (A) 61 %; Platelet Count 411 k/uL (150-450); RBC 4.33 m/uL (3.80-5.40); RDW 12.3 % (11.5-15.5); WBC 4.9 k/uL (3.8-10.6)
[2020-03-22] MEDS ORDERED: HYDROcodone/APAP 7.5-325MG 1 EACH TAB PO ONE (16:30)
[2020-03-22 16:31] LABS: Appearance,Urine Cloudy (Clear); Bacteria,Urine Moderate /hpf; Bilirubin,Urine Negative (Negative); Blood,Urine Negative (Negative); Color,Urine Light Yellow; Glucose,Urine (UA) Negative (Negative); Hyaline Casts,Urine 1 /lpf (0-2); Ketones,Urine Negative (Negative); Leukocyte Esterase,Urine Negative (Negative); Nitrite,Urine Negative (Negative); PH, Urine 7.5 (5.0-8.0); Protein,Urine Negative (Negative); RBC,Urine <1 /hpf (0-5); Specific Gravity,Urine 1.005 (1.001-1.035); Squamous Epithelial Cell,Urine <1 /hpf (0-4); Urobilinogen,Urine <2.0 mg/dL (<2.0); WBC,Urine 2 /hpf (0-5)
--- NOTE | 2020-03-22 16:49 | US ---
EXAMINATION TYPE: US transvaginal DATE OF EXAM: 03/22/2020 COMPARISON: Ultrasound March 13, 2020 CLINICAL HISTORY: pelvic pain, hx of cysts. severe pelvic pain x 2 days; on Nexplanon implant; prior left ovarian cysts removed x 2 surgeries. TECHNIQUE: Transvaginal sonographic images were medically necessary per doctor to assess ovarie s. Date of LMP: 03/07/2020 EXAM MEASUREMENTS: Uterus: 7.4 x 4.1 x 3.4cm Endometrial Stripe: 0.3 cm Right Ovary: 3.0 x 3.3 x 1.7 cm Left Ovary: 3.2 x 2.8 x 1.9 cm 1. Uterus: Anteflexed 2. Endometrium: appears thin for day 16LMP 3. Right Ovary: multifollicular with largest = 0.5 x 0.5 x 0.5cm. 4. Left Ovary: multifollicular with largest cyst = 1.9 x 1.4 x 1.1cm Spectral, color and waveform doppler imaging shows good arterial and venous flow within the ovaries ; . 5. Bilateral Adnexa: wnl 6. Posterior cul-de-sac: wnl Heterogeneous uterus. Ovaries remain normal in size with multiple small peripheral follicles bilatera lly redemonstrated. Largest follicle or simple ovarian cyst measures up to 1.9 cm periphery left ovar y. IMPRESSION: No suspicious new or acute findings seen.
[2020-03-22] MEDS ORDERED: MORPHINE SULFATE 2 MG/ML SYRINGE IM STA (17:01)
--- NOTE | 2020-03-22 17:02 | ED ---
Abdominal Pain HPI - General Chief Complaint: Abdominal Pain Stated Complaint: Abd Pain Time Seen by Provider: 03/22/20 15:23 Source: patient, family Mode of arrival: ambulatory Limitations: no limitations - History of Present Illness Initial Comments: Patient is a 30-year-old female presenting to the emergency Department with complaints of lower abdominal pain has been increasing the past 3 days. Patient states she has a history of ovarian cysts and has had one removed from each ovary in the past. She denies any other abdominal surgeries. Patient has had multiple visits to the ER, approximately 2 visits every month for the last 4 months, for same complaint. She's had multiple CT scans as well as pelvic ultrasounds which have only revealed small ovarian cyst. She admits to mild nausea when the pain is severe, no vomiting, no fever or chills. She denies any diarrhea, she's been having normal bowel movements, denies any urinary complaint s. She has no concerns for STDs. She denies any chest pain or shortness of breath. She states she is not secondary to control. She has no further complaints at this time. Upon arrival to the ER, patient was slightly tachycardia, she was crying, otherwise vitals are normal. - Related Data Home Medications Medication Instructions Recorded Confirmed Aspirin EC [Ecotrin Low Dose] 81 mg PO DAILY 12/15/19 01/19/20 Cetirizine HCl [Zyrtec] 10 mg PO DAILY 12/15/19 01/19/20 Cholecalciferol (Vitamin D3) 50 mcg PO DAILY 12/15/19 01/19/20 [Vitamin D3] DULoxetine HCL [Cymbalta] 120 mg PO DAILY 12/15/19 01/19/20 Folic Acid 1 mg PO DAILY 12/15/19 01/19/20 Ibuprofen [Motrin] 800 mg PO Q6H PRN 12/15/19 01/19/20 Ketorolac 30mg/Ml Injection 30 mg IM ONCE PRN MDD max 1 dose 12/15/19 01/19/20 weekly Multivitamins, Thera [Multivitamin 1 tab PO DAILY 12/15/19 01/19/20 (formulary)] Ondansetron [Zofran ODT] 4 mg PO Q12H PRN 12/15/19 01/19/20 Promethazine [Phenergan] 25 mg PO Q6H PRN 12/15/19 01/19/20 Topiramate [Topamax] 200 mg PO HS 12/15/19 01/19/20 tiZANidine [Zanaflex] 4 mg PO HS 12/15/19 01/19/20 diphenhydrAMINE [Benadryl] 25 - 50 mg PO HS PRN 12/24/19 01/19/20 Lo-Loestrin Fe 1-10 1 tab PO DAILY 01/19/20 01/19/20 Morphine Sulfate Ir [MSIR] 15 mg PO Q6H PRN 01/19/20 01/19/20 buPROPion HCL [Wellbutrin SR] 150 mg PO DAILY 01/19/20 01/19/20 Previous Rx's Medication Instructions Recorded Acetaminophen-Codeine 300-30mg 1 tab PO Q6H PRN 3 Days #12 tablet 01/19/20 [Tylenol w/codeine #3] Acetaminophen-Codeine 300-30mg 1 tab PO Q6H PRN 3 Days #12 tablet 02/21/20 [Tylenol w/codeine #3] Allergies Allergy/AdvReac Type Severity Reaction Status Date / Time amoxicillin Allergy Rash/Hives Verified 03/22/20 15:21 clindamycin Allergy Rash/Hives Verified 03/22/20 15:21 diphtheria,pertussis Allergy Rash/Hives Verified 03/22/20 15:21 (acellular),te [From Boostrix Tdap] latex Allergy Rash/Hives Verified 03/22/20 15:21 sertraline [From Zoloft] Allergy Rash/Hives/ Verified 03/22/20 15:21 Seizures Sulfa (Sulfonamide Allergy Rash/Hives Verified 03/22/20 15:21 Antibiotics) Review of Systems ROS Statement: Those systems with pertinent positive or pertinent negative responses have been documented in the HPI. ROS Other: All systems not noted in ROS Statement are negative. Past Medical History Additional Past Medical History / Comment(s): MS- Migraines, malformation type one History of Any Multi-Drug Resistant Organisms: None Reported Past Surgical History: Adenoidectomy, Hernia Repair, Orthopedic Surgery, Tonsillectomy, Tubal Ligation Additional Past Surgical History / Comment(s): cyst removal x 2, brain sx 2018 Past Psychological History: Depression, PTSD Smoking Status: Never smoker Past Alcohol Use History: Occasional Past Drug Use History: Marijuana General Exam - General Exam Comments Initial Comments: GENERAL: Patient is well-developed and well-nourished. Patient is nontoxic and in no acute distress, but is crying in exam room. HEAD: Atraumatic, normocephalic. EYES: Pupils equal round and reactive to light, extraocular movements intact, sclera anicteric, conjunctiva are normal. Eyelids were unremarkable. ENT: TMs normal, nares patent, oropharynx clear without exudates. Moist mucous membranes. NECK: Normal range of motion, supple without lymphadenopathy or JVD. LUNGS: Unlabored respirations. Breath sounds clear to auscultation bilaterally and equal. No wheezes rales or rhonchi. HEART: Regular rate and rhythm without murmurs, rubs or gallops. ABDOMEN: Suprapubic pain with palpation. Soft, normoactive bowel sounds. No guarding, no rebound. No masses appreciated. : Deferred MUSCULOSKELETAL: Normal extremities with adequate strength and normal range of motion, no pitting or edema. No clubbing or cyanosis. NEUROLOGICAL: Patient is alert and oriented x 3. Motor and sensory are also intact. Normal speech, normal gait. PSYCH: Normal mood, normal affect. SKIN: Warm, Dry, normal turgor, no rashes or lesions noted. Limitations: no limitations Course Vital Signs 03/22/20 15:16 Temperature 98.7 F Pulse Rate 114 H Respiratory 18 Rate Blood Pressure 124/77 O2 Sat by Pulse 100 Oximetry Medical Decision Making - Medical Decision Making Patient is a 30-year-old female presenting for lower abdominal pain has been increasing the past 3-4 days. Patient has had multiple visits to this ER for similar complaint, has had multiple ultrasounds and CT scans which have revealed small ovarian cysts. He says vital signs are stable, she has suprapubic pain with palpation. I did order a CBC which shows a normal white count, urine shows no evidence of infection, she is not . Ultrasound of the pelvis reveals no suspicious new or acute findings. She does have small simple ovarian cyst. I did give patinet ODIN norco. I did discuss these findings with the patient. She is requesting a referral to a new FITTING ROOM ASSOCIATE. Give her a new referral. Recommended continuing with Tylenol alternating with ibuprofen for discomfort. I did review patient's MAPS and she has received several prescriptions for pain medications over the past few months. I do feel he patient is exhibiting drug- seeking behavior. She is stable for discharge. Return parameters were discussed with the patient she verbalized understanding. Case discussed with Dr. Cárdenas. - Lab Data Result diagrams: 03/22/20 16:02 Lab Results 03/22/20 03/22/20 03/22/20 Range/Units 16:02 16:02 16:02 WBC 4.9 (3.8-10.6) k/uL RBC 4.33 (3.80-5.40) m/uL Hgb 14.4 (11.4-16.0) gm/dL Hct 42.3 (34.0-46.0) % MCV 97.6 (80.0-100.0) fL MCH 33.4 (25.0-35.0) pg MCHC 34.2 (31.0-37.0) g/dL RDW 12.3 (11.5-15.5) % Plt Count 411 (150-450) k/uL Neutrophils % 61 % Lymphocytes % 30 % Monocytes % 6 % Eosinophils % 0 % Basophils % 0 % Neutrophils # 2.9 (1.3-7.7) k/uL Lymphocytes # 1.4 (1.0-4.8) k/uL Monocytes # 0.3 (0-1.0) k/uL Eosinophils # 0.0 (0-0.7) k/uL Basophils # 0.0 (0-0.2) k/uL Urine Color Light Yellow Urine Appearance Cloudy H (Clear) Urine pH 7.5 (5.0-8.0) Ur Specific [place] 1.005 (1.001-1.035) Urine Protein Negative (Negative) Urine Glucose (UA) Negative (Negative) Urine Ketones Negative (Negative) Urine Blood Negative (Negative) Urine Nitrite Negative (Negative) Urine Bilirubin Negative (Negative) Urine Urobilinogen <2.0 (<2.0) mg/dL Ur Leukocyte Esterase Negative (Negative) Urine RBC <1 (0-5) /hpf Urine WBC 2 (0-5) /hpf Ur Squamous Epith Cells <1 (0-4) /hpf Urine Bacteria Moderate H (None) /hpf Hyaline Casts 1 (0-2) /lpf Urine HCG, Qual Not Detected (Not Detectd) Disposition Clinical Impression: Abdominal pain, Pelvic pain, Ovarian cyst, Drug-seeking behavior Disposition: HOME SELF-CARE Condition: Stable Instructions (If sedation given, give patient instructions): Pelvic Pain in Women (ED) Additional Instructions: Please return to the Emergency Department if symptoms worsen or any other concerns. Alternate between Tylenol and Motrin for discomfort. Follow-up with FITTING ROOM ASSOCIATE as discussed. Is patient prescribed a controlled substance at d/c from ED?: No Referrals: Nonstaff,Physician [Primary Care Provider] - 1-2 days Paris Rabago DO [Doctor of Osteopathic Medicine] - 1-2 days
[2020-03-22] MEDS ORDERED: ACET/COD 300 MG/30 MG STARTER PACK 6 TAB BTL PO STA (17:03)
[2020-03-22 17:26] VITALS: BP 114/91; PULSE 102
== END 2020-03-22 17:26 | disposition home or self-care (01) ==
LOC: EC 15:13
DX: N83.292 Other ovarian cyst, left side (principal); Z76.5 Malingerer [conscious simulation]; F32.9 Major depressive disorder, single episode, unspecified; F43.10 Post-traumatic stress disorder, unspecified; Z79.899 Other long term (current) drug therapy; Z86.69 Personal history of other diseases of the nervous system and sense organs; Z98.51 Tubal ligation status; Z88.0 Allergy status to penicillin; Z88.2 Allergy status to sulfonamides; Z88.7 Allergy status to serum and vaccine; Z88.8 Allergy status to other drugs, medicaments and biological substances; Z91.040 Latex allergy status
CPT/HCPCS: 36415; 85025; 81001; 81025; 93975; 76830; 99285; 96372; J2270

== ENCOUNTER 2020-05-01 17:34 | Emergency (ER) | payer MEDICARE, OTHER ==
[2020-05-01 17:40] VITALS: TEMP 97.6
[2020-05-01] MEDS ORDERED: SODIUM CHLORIDE 0.9% 500 ML 500 ML IV ONE (18:04)
[2020-05-01 18:22] LABS: Basophils % (A) 0 %; Eosinophils # (A) 0.1 k/uL (0-0.7); Eosinophils % (A) 2 %; HCT 44.9 % (34.0-46.0); Lymphocytes # (A) 1.8 k/uL (1.0-4.8); Lymphocytes % (A) 25 %; MCH 32.4 pg (25.0-35.0); MCHC 33.5 g/dL (31.0-37.0); MCV 96.9 fL (80.0-100.0); Mean Platelet Volume 6.2; Monocytes # (A) 0.3 k/uL (0-1.0); Monocytes % (A) 5 %; Neutrophils # (A) 4.9 k/uL (1.3-7.7); Neutrophils % (A) 67 %; Platelet Count 416 k/uL (150-450); RBC 4.63 m/uL (3.80-5.40); WBC 7.3 k/uL (3.8-10.6)
[2020-05-01 18:23] LABS: Appearance,Urine Clear (Clear); Bilirubin,Urine Negative (Negative); Blood,Urine Negative (Negative); Color,Urine Light Yellow; Glucose,Urine (UA) Negative (Negative); Ketones,Urine Negative (Negative); Leukocyte Esterase,Urine Negative (Negative); Nitrite,Urine Negative (Negative); Protein,Urine Negative (Negative); Specific Gravity,Urine 1.005 (1.001-1.035); Urobilinogen,Urine <2.0 mg/dL (<2.0)
[2020-05-01 18:31] LABS: ALT 16 U/L (4-34); AST 25 U/L (14-36); African American GFR (CKD) >90 (>60 ml/min/1.73 sqM); Albumin 4.8 g/dL (3.5-5.0); Alkaline Phosphatase 51 U/L (38-126); Anion Gap 7 mmol/L; Blood Urea Nitrogen 12 mg/dL (7-17); Calcium 9.9 mg/dL (8.4-10.2); Carbon Dioxide 24 mmol/L (22-30); Chloride 107 mmol/L (98-107); Glucose 93 mg/dL (74-99); Non-African American GFR(CKD) >90 (>60 ml/min/1.73 sqM); Potassium 4.3 mmol/L (3.5-5.1); Sodium 138 mmol/L (137-145); Total Bilirubin 0.3 mg/dL (0.2-1.3); Total Protein 7.7 g/dL (6.3-8.2)
--- NOTE | 2020-05-01 18:57 | US ---
EXAMINATION TYPE: US transvaginal DATE OF EXAM: 05/01/2020 COMPARISON: US CLINICAL HISTORY: pain. Pelvic pain TECHNIQUE: Transvaginal (TV). Transvaginal sonographic images of the pelvis were acquired. Date of LMP: 04/08/20 EXAM MEASUREMENTS: Uterus: 7.0 x 3.8 x 5.5 cm Endometrial Stripe: 0.6 cm Right Ovary: 5.0 x 2.9 x 4.2 cm Left Ovary: 3.1 x 2.0 x 2.1 cm 1. Uterus: Anteverted wnl 2. Endometrium: wnl 3. Right Ovary: Probable hemorrhagic cyst=3.3 x 2.6 x 2.5 cm 4. Left Ovary: wnl Spectral, color and waveform doppler imaging shows good arterial and venous flow within the ovaries ; there is no evidence for ovarian torsion. 5. Bilateral Adnexa: wnl 6. Posterior cul-de-sac: Scant amount of fluid IMPRESSION: Normal uterus and endometrium. Complex cyst on the right ovary is probably hemorrhagic cyst. No evide nce of ovarian torsion.
--- NOTE | 2020-05-01 19:33 | ED ---
General Adult HPI - General Source: patient, RN notes reviewed, old records reviewed Mode of arrival: ambulatory Limitations: no limitations <Magen Driver - Last Filed: 05/01/20 23:13> <Kellee Ross - Last Filed: 05/03/20 07:44> - General Chief complaint: Abdominal Pain Stated complaint: Abd Pain Time Seen by Provider: 05/01/20 17:42 - History of Present Illness Initial comments: 30-year-old female patient well known this emergency department for repeat visits of lower abdominal pelvic pain to ED for left lower abdominal pelvic pain ongoing for last 3 days. Patient vital signs are stable, afebrile. Denies any other acute complaints. Systemic: Pt denies fatigue, fever/chills, rash. Pt denies weakness, night sweats, weight loss. Neuro: Pt denies headache, visual disturbances, syncope or pre-syncope. HEENT: Pt denies ocular discharge or irritation, otalgia, rhinorrhea, pharyngitis or notable lymphadenopathy. Cardiopulmonary: Pt denies chest pain, SOB, heart palpitations, dyspnea on exertion. Abdominal/GI: Pt denies n/v/d. : Pt denies dysuria, burning w/ urination, frequency/urgency. Denies new onset urinary or bowel incontinence. MSK: Pt denies myalgia, loss of strength or function in extremities. Neuro: Pt denies new onset weakness, paresthesias. (Magen Driver) - Related Data Home Medications Medication Instructions Recorded Confirmed Aspirin EC [Ecotrin Low Dose] 81 mg PO DAILY 12/15/19 01/19/20 Cetirizine HCl [Zyrtec] 10 mg PO DAILY 12/15/19 01/19/20 Cholecalciferol (Vitamin D3) 50 mcg PO DAILY 12/15/19 01/19/20 [Vitamin D3] DULoxetine HCL [Cymbalta] 120 mg PO DAILY 12/15/19 01/19/20 Folic Acid 1 mg PO DAILY 12/15/19 01/19/20 Ibuprofen [Motrin] 800 mg PO Q6H PRN 12/15/19 01/19/20 Ketorolac 30mg/Ml Injection 30 mg IM ONCE PRN MDD max 1 dose 12/15/19 01/19/20 weekly Multivitamins, Thera [Multivitamin 1 tab PO DAILY 12/15/19 01/19/20 (formulary)] Ondansetron [Zofran ODT] 4 mg PO Q12H PRN 12/15/19 01/19/20 Promethazine [Phenergan] 25 mg PO Q6H PRN 12/15/19 01/19/20 Topiramate [Topamax] 200 mg PO HS 12/15/19 01/19/20 tiZANidine [Zanaflex] 4 mg PO HS 12/15/19 01/19/20 diphenhydrAMINE [Benadryl] 25 - 50 mg PO HS PRN 12/24/19 01/19/20 Lo-Loestrin Fe 1-10 1 tab PO DAILY 01/19/20 01/19/20 Morphine Sulfate Ir [MSIR] 15 mg PO Q6H PRN 01/19/20 01/19/20 buPROPion HCL [Wellbutrin SR] 150 mg PO DAILY 01/19/20 01/19/20 Previous Rx's Medication Instructions Recorded Acetaminophen-Codeine 300-30mg 1 tab PO Q6H PRN 3 Days #12 tablet 01/19/20 [Tylenol w/codeine #3] Acetaminophen-Codeine 300-30mg 1 tab PO Q6H PRN 3 Days #12 tablet 02/21/20 [Tylenol w/codeine #3] Allergies Allergy/AdvReac Type Severity Reaction Status Date / Time amoxicillin Allergy Rash/Hives Verified 05/01/20 17:38 clindamycin Allergy Rash/Hives Verified 05/01/20 17:38 diphtheria,pertussis Allergy Rash/Hives Verified 05/01/20 17:38 (acellular),te [From Boostrix Tdap] latex Allergy Rash/Hives Verified 05/01/20 17:38 sertraline [From Zoloft] Allergy Rash/Hives/ Verified 05/01/20 17:38 Seizures Sulfa (Sulfonamide Allergy Rash/Hives Verified 05/01/20 17:38 Antibiotics) Review of Systems ROS Other: All systems not noted in ROS Statement are negative. <Magen Driver - Last Filed: 05/01/20 23:13> ROS Other: All systems not noted in ROS Statement are negative. <Kellee Ross - Last Filed: 05/03/20 07:44> ROS Statement: Those systems with pertinent positive or pertinent negative responses have been documented in the HPI. Past Medical History Additional Past Medical History / Comment(s): MS- Migraines, malformation type one History of Any Multi-Drug Resistant Organisms: None Reported Past Surgical History: Adenoidectomy, Hernia Repair, Orthopedic Surgery, Tonsillectomy, Tubal Ligation Additional Past Surgical History / Comment(s): cyst removal x 2, brain sx 2018 Past Psychological History: Depression, PTSD Smoking Status: Never smoker Past Alcohol Use History: Occasional Past Drug Use History: Marijuana <Magen Driver - Last Filed: 05/01/20 23:13> General Exam Limitations: no limitations <Magen Driver - Last Filed: 05/01/20 23:13> - General Exam Comments Initial Comments: Constitutional: NAD, AOX3, Pt has pleasant affect. HEENT: NC/AT, trachea midline, neck supple, no lymphadenopathy. External ears appear normal, without discharge. Mucous membranes moist. Eyes PERRLA, EOM intact. There is no scleral icterus. No pallor noted. Cardiopulmonary: RRR, no murmurs, rubs or gallops, no JVD noted. Lungs CTAB in anterior and posterior tran. No peripheral edema. Abdominal exam: Abdomen soft and non-distended. Abdomen mildly tender to p alpation left lower adnexal region.. Bowel sounds active in LLQ. No hepatosplenomegaly. No ecchymosis Neuro: CN II-XII grossly intact. No nuchal rigidity. MSK: . Full active ROM in upper and lower extremities (Magen Driver) Course Vital Signs 05/01/20 05/01/20 05/01/20 17:38 18:42 19:58 Temperature 97.6 F Pulse Rate 121 H 102 H 80 Respiratory 16 18 16 Rate Blood Pressure 122/84 134/94 127/84 O2 Sat by Pulse 100 100 99 Oximetry Medical Decision Making - Lab Data Result diagrams: 05/01/20 18:03 05/01/20 18:03 <Magen Driver - Last Filed: 05/01/20 23:13> - Lab Data Result diagrams: 05/01/20 18:03 05/01/20 18:03 <Kellee Ross - Last Filed: 05/03/20 07:44> - Medical Decision Making 30-year-old feel patient ED for pelvic pain. Vital signs stable. Laboratory investigations non-impressive. Ultrasound study complex cyst on the right ovary. No evidence of torsion. Patient was recommended pelvic exam she declined. Discharged outpatient follow-up and return precautions. Case dis cussed with Dr. Ross. (Magen Driver) I was available for consultation in the emergency department. The history and physical exam were done by the midlevel provider. I was consulted for this patients care. I reviewed the case with the midlevel provider and based on t heir presentation of the patient, I agree with the assessment, medical decision making and plan of care as documented. Chart was dictated using [employer] dictation software. Attempts were made to ki ect any dictation errors however some typographical errors may persist. Patient seen and evaluated during state of emergency due to Covid-19. (Kellee Ross) - Lab Data Lab Results 05/01/20 05/01/20 05/01/20 Range/Units 18:03 18:03 18:03 WBC 7.3 (3.8-10.6) k/uL RBC 4.63 (3.80-5.40) m/uL Hgb 15.0 (11.4-16.0) gm/dL Hct 44.9 (34.0-46.0) % MCV 96.9 (80.0-100.0) fL MCH 32.4 (25.0-35.0) pg MCHC 33.5 (31.0-37.0) g/dL RDW 13.0 (11.5-15.5) % Plt Count 416 (150-450) k/uL MPV 6.2 Neutrophils % 67 % Lymphocytes % 25 % Monocytes % 5 % Eosinophils % 2 % Basophils % 0 % Neutrophils # 4.9 (1.3-7.7) k/uL Lymphocytes # 1.8 (1.0-4.8) k/uL Monocytes # 0.3 (0-1.0) k/uL Eosinophils # 0.1 (0-0.7) k/uL Basophils # 0.0 (0-0.2) k/uL Sodium 138 (137-145) mmol/L Potassium 4.3 (3.5-5.1) mmol/L Chloride 107 (98-107) mmol/L Carbon Dioxide 24 (22-30) mmol/L Anion Gap 7 mmol/L BUN 12 (7-17) mg/dL Creatinine 0.84 (0.52-1.04) mg/dL Est GFR (CKD-EPI)AfAm >90 (>60 ml/min/1.73 sqM) Est GFR (CKD-EPI)NonAf >90 (>60 ml/min/1.73 sqM) Glucose 93 (74-99) mg/dL Plasma Lactic Acid Krish (0.7-2.0) mmol/L Calcium 9.9 (8.4-10.2) mg/dL Total Bilirubin 0.3 (0.2-1.3) mg/dL AST 25 (14-36) U/L ALT 16 (4-34) U/L Alkaline Phosphatase 51 (38-126) U/L Total Protein 7.7 (6.3-8.2) g/dL Albumin 4.8 (3.5-5.0) g/dL Urine Color Light Yellow Urine Appearance Clear (Clear) Urine pH 7.0 (5.0-8.0) Ur Specific [place] 1.005 (1.001-1.035) Urine Protein Negative (Negative) Urine Glucose (UA) Negative (Negative) Urine Ketones Negative (Negative) Urine Blood Negative (Negative) Urine Nitrite Negative (Negative) Urine Bilirubin Negative (Negative) Urine Urobilinogen <2.0 (<2.0) mg/dL Ur Leukocyte Esterase Negative (Negative) Urine HCG, Qual (Not Detectd) 05/01/20 05/01/20 Range/Units 18:03 18:03 WBC (3.8-10.6) k/uL RBC (3.80-5.40) m/uL Hgb (11.4-16.0) gm/dL Hct (34.0-46.0) % MCV (80.0-100.0) fL MCH (25.0-35.0) pg MCHC (31.0-37.0) g/dL RDW (11.5-15.5) % Plt Count (150-450) k/uL MPV Neutrophils % % Lymphocytes % % Monocytes % % Eosinophils % % Basophils % % Neutrophils # (1.3-7.7) k/uL Lymphocytes # (1.0-4.8) k/uL Monocytes # (0-1.0) k/uL Eosinophils # (0-0.7) k/uL Basophils # (0-0.2) k/uL Sodium (137-145) mmol/L Potassium (3.5-5.1) mmol/L Chloride (98-107) mmol/L Carbon Dioxide (22-30) mmol/L Anion Gap mmol/L BUN (7-17) mg/dL Creatinine (0.52-1.04) mg/dL Est GFR (CKD-EPI)AfAm (>60 ml/min/1.73 sqM) Est GFR (CKD-EPI)NonAf (>60 ml/min/1.73 sqM) Glucose (74-99) mg/dL Plasma Lactic Acid Krish 0.7 (0.7-2.0) mmol/L Calcium (8.4-10.2) mg/dL Total Bilirubin (0.2-1.3) mg/dL AST (14-36) U/L ALT (4-34) U/L Alkaline Phosphatase (38-126) U/L Total Protein (6.3-8.2) g/dL Albumin (3.5-5.0) g/dL Urine Color Urine Appearance (Clear) Urine pH (5.0-8.0) Ur Specific [place] (1.001-1.035) Urine Protein (Negative) Urine Glucose (UA) (Negative) Urine Ketones (Negative) Urine Blood (Negative) Urine Nitrite (Negative) Urine Bilirubin (Negative) Urine Urobilinogen (<2.0) mg/dL Ur Leukocyte Esterase (Negative) Urine HCG, Qual Not Detected (Not Detectd) Disposition Is patient prescribed a controlled substance at d/c from ED?: No <Magen Driver - Last Filed: 05/01/20 23:13> <Kellee Ross - Last Filed: 05/03/20 07:44> Clinical Impression: Pelvic pain, Ovarian cyst Disposition: HOME SELF-CARE Condition: Stable Instructions (If sedation given, give patient instructions): Ovarian Cyst (ED) Additional Instructions: follow up with PCP tomorrow. Follow up with [facility] tomorrow. If you are still in discomfort tomorrow you make take a Tylenol #3. Do not take any more tylenol until 6 hours from last dose. Return to ED with any worsening symptoms. Referrals: Nonstaff,Physician [Primary Care Provider] - 1-2 days
[2020-05-01] MEDS ORDERED: Acetaminophen-Codeine 300-30mg TAB PO STA ×2 (19:45→19:55)
[2020-05-01 20:02] VITALS: BP 127/84; PULSE 80; RESP 16
== END 2020-05-01 19:58 | disposition home or self-care (01) ==
LOC: EC 17:34
DX: N83.291 Other ovarian cyst, right side (principal); F32.9 Major depressive disorder, single episode, unspecified; F43.10 Post-traumatic stress disorder, unspecified; Z79.82 Long term (current) use of aspirin; Z79.899 Other long term (current) drug therapy; Z90.89 Acquired absence of other organs; Z98.51 Tubal ligation status; Z88.1 Allergy status to other antibiotic agents; Z88.2 Allergy status to sulfonamides; Z88.7 Allergy status to serum and vaccine; Z88.8 Allergy status to other drugs, medicaments and biological substances; Z86.69 Personal history of other diseases of the nervous system and sense organs
CPT/HCPCS: 36415; 76830; 80053; 81003; 81025; 83605; 85025; 93975; 96360; 99284

== ENCOUNTER 2020-05-16 20:16 | Emergency (ER) | payer MEDICARE, OTHER ==
[2020-05-16] MEDS ORDERED: SODIUM CHLORIDE 0.9% 500 ML 500 ML IV STA (20:41)
[2020-05-16] MEDS ORDERED: ONDANSETRON 4 MG/2 ML VIAL IVP STA (20:41)
[2020-05-16] MEDS ORDERED: SODIUM CHLORIDE 0.9% 1,000 ML IV STA ×2 (20:41)
--- NOTE | 2020-05-16 20:43 | ED ---
Arrhythmia/Palpitations HPI - General Chief Complaint: Arrhythmia/Palpitations Stated Complaint: Chest Pain Time Seen by Provider: 05/16/20 20:36 Source: patient, RN notes reviewed, old records reviewed Mode of arrival: wheelchair Limitations: no limitations - History of Present Illness Initial Comments: This is a 30-year-old female DF for evaluation. Patient does rapid heart rate, does admit to some mild anxiety symptoms habits tonight. She was wearing her therapist noticed heart rates in the 60s. She feels little lightheaded but did not pass out no chest pain or shortness of breath. Patient has no known travel history no sick contacts. Never had a prior similar episode. MD Complaint: rapid heart beat, palpitations -: hour(s) Context: occurred during rest Arrhythmia History: SVT, other (none prior, 160s at home) Associated Symptoms: shortness of breath, feeling of impending doom Treatments Prior to Arrival: other (none) - Related Data Home Medications Medication Instructions Recorded Confirmed Aspirin EC [Ecotrin Low Dose] 81 mg PO DAILY 12/15/19 05/16/20 Cetirizine HCl [Zyrtec] 10 mg PO DAILY 12/15/19 05/16/20 Cholecalciferol (Vitamin D3) 50 mcg PO DAILY 12/15/19 05/16/20 [Vitamin D3] DULoxetine HCL [Cymbalta] 120 mg PO DAILY 12/15/19 05/16/20 Folic Acid 1 mg PO DAILY 12/15/19 05/16/20 Ketorolac 30mg/Ml Injection 30 mg IM Q7D PRN 12/15/19 05/16/20 Multivitamins, Thera [Multivitamin 1 tab PO DAILY 12/15/19 05/16/20 (formulary)] Ondansetron [Zofran ODT] 4 mg PO Q12H PRN 12/15/19 05/16/20 Promethazine [Phenergan] 25 mg PO Q6H PRN 12/15/19 05/16/20 Topiramate [Topamax] 100 mg PO HS 12/15/19 05/16/20 tiZANidine [Zanaflex] 4 mg PO HS 12/15/19 05/16/20 diphenhydrAMINE [Benadryl] 25 - 50 mg PO HS PRN 12/24/19 05/16/20 Naproxen Sodium 550 mg PO DAILY PRN 05/16/20 05/16/20 Allergies Allergy/AdvReac Type Severity Reaction Status Date / Time amoxicillin Allergy Rash/Hives Verified 05/16/20 21:13 clindamycin Allergy Rash/Hives Verified 05/16/20 21:13 diphtheria,pertussis Allergy Rash/Hives Verified 05/16/20 21:13 (acellular),te [From Boostrix Tdap] latex Allergy Rash/Hives Verified 05/16/20 21:13 sertraline [From Zoloft] Allergy Rash/Hives/ Verified 05/16/20 21:13 Seizures Sulfa (Sulfonamide Allergy Rash/Hives Verified 05/16/20 21:13 Antibiotics) Review of Systems ROS Statement: Those systems with pertinent positive or pertinent negative responses have been documented in the HPI. ROS Other: All systems not noted in ROS Statement are negative. Past Medical History Additional Past Medical History / Comment(s): MS- Migraines, malformation type one History of Any Multi-Drug Resistant Organisms: None Reported Past Surgical History: Adenoidectomy, Hernia Repair, Orthopedic Surgery, Tonsillectomy, Tubal Ligation Additional Past Surgical History / Comment(s): cyst removal x 2, brain sx 2018 Past Psychological History: Depression, PTSD Smoking Status: Never smoker Past Alcohol Use History: Occasional Past Drug Use History: Marijuana General Exam Limitations: no limitations General appearance: alert, in no apparent distress, anxious Head exam: Present: atraumatic, normocephalic, normal inspection Eye exam: Present: normal appearance, PERRL, EOMI. Absent: scleral icterus, conjunctival injection, periorbital swelling ENT exam: Present: normal exam, mucous membranes moist Neck exam: Present: normal inspection. Absent: tenderness, meningismus, lymphadenopathy Respiratory exam: Present: normal lung sounds bilaterally. Absent: respiratory distress, wheezes, rales, rhonchi, stridor Cardiovascular Exam: Present: normal rhythm, tachycardia, normal heart sounds. Absent: systolic murmur, diastolic murmur, rubs, gallop, clicks GI/Abdominal exam: Present: soft, normal bowel sounds. Absent: distended, tenderness, guarding, rebound, rigid Extremities exam: Present: normal inspection, full ROM, normal capillary refill. Absent: tenderness, pedal edema, joint swelling, calf tenderness Back exam: Present: normal inspection Neurological exam: Present: alert, oriented X3, CN II-XII intact Psychiatric exam: Present: normal affect, normal mood Skin exam: Present: warm, dry, intact, normal color. Absent: rash Course Vital Signs 05/16/20 05/16/20 05/16/20 20:17 21:36 23:00 Temperature 97.9 F Pulse Rate 114 H 90 96 Respiratory 18 15 16 Rate Blood Pressure 142/92 134/88 O2 Sat by Pulse 100 100 Oximetry 05/16/20 23:30 Temperature 97.8 F Pulse Rate 99 Respiratory 14 Rate Blood Pressure 128/80 O2 Sat by Pulse 96 Oximetry - Reevaluation(s) Reevaluation #1: Medical records reviewed No recurrence of tachycardia here in the ER Patient informed results and questions answered Patient was concern that maybe care malformation may be contributing to dizziness does not appear to be the case no focal neurological deficits [place] with patient at length regarding follow-up Holter monitor versus event monitor EKG Findings - EKG Comments: EKG Findings:: EKG shows sinus tachycardia 103 IA 140 QRS 88 QTc 450 Medical Decision Making - Medical Decision Making 30 female DF for evaluation patient Dese for arrhythmia elevated heart rate tachycardia. Denies Drug abuse or any other significant issues. No chest pain and symptoms are resolved upon arrival and throughout ER stay, patient can be discharged home - Lab Data Result diagrams: 05/16/20 21:30 05/16/20 21:30 Lab Results 05/16/20 05/16/20 05/16/20 Range/Units 21:30 21:30 21:30 WBC 4.5 (3.8-10.6) k/uL RBC 4.28 (3.80-5.40) m/uL Hgb 14.1 (11.4-16.0) gm/dL Hct 41.0 (34.0-46.0) % MCV 95.7 (80.0-100.0) fL MCH 32.9 (25.0-35.0) pg MCHC 34.3 (31.0-37.0) g/dL RDW 12.1 (11.5-15.5) % Plt Count 391 (150-450) k/uL MPV 6.0 Neutrophils % 59 % Lymphocytes % 32 % Monocytes % 6 % Eosinophils % 1 % Basophils % 1 % Neutrophils # 2.6 (1.3-7.7) k/uL Lymphocytes # 1.4 (1.0-4.8) k/uL Monocytes # 0.3 (0-1.0) k/uL Eosinophils # 0.0 (0-0.7) k/uL Basophils # 0.1 (0-0.2) k/uL Sodium 139 (137-145) mmol/L Potassium 4.1 (3.5-5.1) mmol/L Chloride 107 (98-107) mmol/L Carbon Dioxide 24 (22-30) mmol/L Anion Gap 8 mmol/L BUN 13 (7-17) mg/dL Creatinine 0.85 (0.52-1.04) mg/dL Est GFR (CKD-EPI)AfAm >90 (>60 ml/min/1.73 sqM) Est GFR (CKD-EPI)NonAf >90 (>60 ml/min/1.73 sqM) Glucose 98 (74-99) mg/dL Calcium 9.9 (8.4-10.2) mg/dL Phosphorus 4.3 (2.5-4.5) mg/dL Magnesium 2.1 (1.6-2.3) mg/dL Total Bilirubin 0.3 (0.2-1.3) mg/dL AST 22 (14-36) U/L ALT 14 (4-34) U/L Alkaline Phosphatase 54 (38-126) U/L Creatine Kinase 52 (30-135) U/L Troponin I <0.012 (0.000-0.034) ng/mL NT-Pro-B Natriuret Pep pg/mL Total Protein 7.2 (6.3-8.2) g/dL Albumin 4.6 (3.5-5.0) g/dL TSH 1.580 (0.465-4.680) mIU/L Urine Color Urine Appearance (Clear) Urine pH (5.0-8.0) Ur Specific [place] (1.001-1.035) Urine Protein (Negative) Urine Glucose (UA) (Negative) Urine Ketones (Negative) Urine Blood (Negative) Urine Nitrite (Negative) Urine Bilirubin (Negative) Urine Urobilinogen (<2.0) mg/dL Ur Leukocyte Esterase (Negative) Urine RBC (0-5) /hpf Urine WBC (0-5) /hpf Ur Squamous Epith Cells (0-4) /hpf Amorphous Sediment (None) /hpf Urine Bacteria (None) /hpf Urine Mucus (None) /hpf 05/16/20 05/16/20 Range/Units 21:30 22:43 WBC (3.8-10.6) k/uL RBC (3.80-5.40) m/uL Hgb (11.4-16.0) gm/dL Hct (34.0-46.0) % MCV (80.0-100.0) fL MCH (25.0-35.0) pg MCHC (31.0-37.0) g/dL RDW (11.5-15.5) % Plt Count (150-450) k/uL MPV Neutrophils % % Lymphocytes % % Monocytes % % Eosinophils % % Basophils % % Neutrophils # (1.3-7.7) k/uL Lymphocytes # (1.0-4.8) k/uL Monocytes # (0-1.0) k/uL Eosinophils # (0-0.7) k/uL Basophils # (0-0.2) k/uL Sodium (137-145) mmol/L Potassium (3.5-5.1) mmol/L Chloride (98-107) mmol/L Carbon Dioxide (22-30) mmol/L Anion Gap mmol/L BUN (7-17) mg/dL Creatinine (0.52-1.04) mg/dL Est GFR (CKD-EPI)AfAm (>60 ml/min/1.73 sqM) Est GFR (CKD-EPI)NonAf (>60 ml/min/1.73 sqM) Glucose (74-99) mg/dL Calcium (8.4-10.2) mg/dL Phosphorus (2.5-4.5) mg/dL Magnesium (1.6-2.3) mg/dL Total Bilirubin (0.2-1.3) mg/dL AST (14-36) U/L ALT (4-34) U/L Alkaline Phosphatase (38-126) U/L Creatine Kinase (30-135) U/L Troponin I (0.000-0.034) ng/mL NT-Pro-B Natriuret Pep 22 pg/mL Total Protein (6.3-8.2) g/dL Albumin (3.5-5.0) g/dL TSH (0.465-4.680) mIU/L Urine Color Light Yellow Urine Appearance Turbid H (Clear) Urine pH 7.5 (5.0-8.0) Ur Specific [place] 1.006 (1.001-1.035) Urine Protein Negative (Negative) Urine Glucose (UA) Negative (Negative) Urine Ketones Negative (Negative) Urine Blood Negative (Negative) Urine Nitrite Negative (Negative) Urine Bilirubin Negative (Negative) Urine Urobilinogen <2.0 (<2.0) mg/dL Ur Leukocyte Esterase Negative (Negative) Urine RBC 2 (0-5) /hpf Urine WBC 1 (0-5) /hpf Ur Squamous Epith Cells 1 (0-4) /hpf Amorphous Sediment Rare H (None) /hpf Urine Bacteria Occasional H (None) /hpf Urine Mucus Rare H (None) /hpf Disposition Clinical Impression: Tachycardia, Palpitations Disposition: HOME SELF-CARE Condition: Good Instructions (If sedation given, give patient instructions): Heart Palpitations (ED) Is patient prescribed a controlled substance at d/c from ED?: No Referrals: Nonstaff,Physician [Primary Care Provider] - 1-2 days
[2020-05-16] MEDS ORDERED: MORPHINE SULFATE 4 MG/ML SYRINGE IVP STA (21:40)
[2020-05-16 21:54] LABS: ALT 14 U/L (4-34); AST 22 U/L (14-36); African American GFR (CKD) >90 (>60 ml/min/1.73 sqM); Albumin 4.6 g/dL (3.5-5.0); Alkaline Phosphatase 54 U/L (38-126); Anion Gap 8 mmol/L; Blood Urea Nitrogen 13 mg/dL (7-17); Calcium 9.9 mg/dL (8.4-10.2); Carbon Dioxide 24 mmol/L (22-30); Chloride 107 mmol/L (98-107); Creatine Kinase 52 U/L (30-135); Glucose 98 mg/dL (74-99); Magnesium 2.1 mg/dL (1.6-2.3); Non-African American GFR(CKD) >90 (>60 ml/min/1.73 sqM); Phosphorus 4.3 mg/dL (2.5-4.5); Potassium 4.1 mmol/L (3.5-5.1); Sodium 139 mmol/L (137-145); Total Bilirubin 0.3 mg/dL (0.2-1.3); Total Protein 7.2 g/dL (6.3-8.2)
[2020-05-16 21:58] LABS: Basophils # (A) 0.1 k/uL (0-0.2); Basophils % (A) 1 %; Eosinophils % (A) 1 %; HGB 14.1 gm/dL (11.4-16.0); Lymphocytes # (A) 1.4 k/uL (1.0-4.8); Lymphocytes % (A) 32 %; MCH 32.9 pg (25.0-35.0); MCHC 34.3 g/dL (31.0-37.0); MCV 95.7 fL (80.0-100.0); Monocytes # (A) 0.3 k/uL (0-1.0); Monocytes % (A) 6 %; Neutrophils # (A) 2.6 k/uL (1.3-7.7); Neutrophils % (A) 59 %; Platelet Count 391 k/uL (150-450); RBC 4.28 m/uL (3.80-5.40); RDW 12.1 % (11.5-15.5); WBC 4.5 k/uL (3.8-10.6)
[2020-05-16 23:32] LABS: Amorphous Sediment,Urine Rare /hpf; Appearance,Urine Turbid (Clear); Bacteria,Urine Occasional /hpf; Bilirubin,Urine Negative (Negative); Blood,Urine Negative (Negative); Color,Urine Light Yellow; Glucose,Urine (UA) Negative (Negative); Ketones,Urine Negative (Negative); Leukocyte Esterase,Urine Negative (Negative); Mucus,Urine Rare /hpf; Nitrite,Urine Negative (Negative); PH, Urine 7.5 (5.0-8.0); Protein,Urine Negative (Negative); RBC,Urine 2 /hpf (0-5); Specific Gravity,Urine 1.006 (1.001-1.035); Squamous Epithelial Cell,Urine 1 /hpf (0-4); Urobilinogen,Urine <2.0 mg/dL (<2.0); WBC,Urine 1 /hpf (0-5)
[2020-05-16 23:36] VITALS: BP 128/80; PULSE 99; RESP 14; TEMP 97.8
== END 2020-05-16 23:30 | disposition home or self-care (01) ==
LOC: EC 20:16
DX: R00.0 Tachycardia, unspecified (principal); R00.2 Palpitations; F32.9 Major depressive disorder, single episode, unspecified; Z79.82 Long term (current) use of aspirin; Z79.899 Other long term (current) drug therapy; Z88.0 Allergy status to penicillin; Z88.1 Allergy status to other antibiotic agents; Z91.040 Latex allergy status; Z88.2 Allergy status to sulfonamides; Z88.8 Allergy status to other drugs, medicaments and biological substances
CPT/HCPCS: 36415; 93005; 83880; 80053; 82550; 83735; 84100; 84443; 84484; 85025; 81001; 99285; 96374; 96375; 96361 ×2; J2270; J2405

== ENCOUNTER 2020-06-10 21:05 | Emergency (ER) | payer MEDICARE, OTHER ==
--- NOTE | 2020-06-10 21:15 | ED ---
Headache HPI - General Chief Complaint: Headache Stated Complaint: Headache Time Seen by Provider: 06/10/20 21:10 Mode of arrival: ambulatory Limitations: no limitations - History of Present Illness Initial Comments: 30-year-old female with history of migraines with aura presenting to the emergency department with a chief complaint of a headache. Patient reports this migraine has been on for the past 5 days. States this feels a "typical migraine although it is lasting more than usual. Patient reports it is one-sided along with for sensitivity nausea or vomiting. Patient reports taking some Zofran home to alleviate the nausea. States this was a gradual onset headache and not the worst headache of her life. States she has been in the emergency department multiple times for this. States she already sees a neurologist out of [place] for the migraines. Patient states she's had multiple MRIs with no significant findings. Denies focal weakness or paresthesias, chest pain shortness of breath. - Related Data Home Medications Medication Instructions Recorded Confirmed Aspirin EC [Ecotrin Low Dose] 81 mg PO DAILY 12/15/19 05/16/20 Cetirizine HCl [Zyrtec] 10 mg PO DAILY 12/15/19 05/16/20 Cholecalciferol (Vitamin D3) 50 mcg PO DAILY 12/15/19 05/16/20 [Vitamin D3] DULoxetine HCL [Cymbalta] 120 mg PO DAILY 12/15/19 05/16/20 Folic Acid 1 mg PO DAILY 12/15/19 05/16/20 Ketorolac 30mg/Ml Injection 30 mg IM Q7D PRN 12/15/19 05/16/20 Multivitamins, Thera [Multivitamin 1 tab PO DAILY 12/15/19 05/16/20 (formulary)] Ondansetron [Zofran ODT] 4 mg PO Q12H PRN 12/15/19 05/16/20 Promethazine [Phenergan] 25 mg PO Q6H PRN 12/15/19 05/16/20 Topiramate [Topamax] 100 mg PO HS 12/15/19 05/16/20 tiZANidine [Zanaflex] 4 mg PO HS 12/15/19 05/16/20 diphenhydrAMINE [Benadryl] 25 - 50 mg PO HS PRN 12/24/19 05/16/20 Naproxen Sodium 550 mg PO DAILY PRN 05/16/20 05/16/20 Allergies Allergy/AdvReac Type Severity Reaction Status Date / Time amoxicillin Allergy Rash/Hives Verified 06/10/20 21:10 clindamycin Allergy Rash/Hives Verified 06/10/20 21:10 diphtheria,pertussis Allergy Rash/Hives Verified 06/10/20 21:10 (acellular),te [From Boostrix Tdap] latex Allergy Rash/Hives Verified 06/10/20 21:10 sertraline [From Zoloft] Allergy Rash/Hives/ Verified 06/10/20 21:10 Seizures Sulfa (Sulfonamide Allergy Rash/Hives Verified 06/10/20 21:10 Antibiotics) Review of Systems ROS Statement: Those systems with pertinent positive or pertinent negative responses have been documented in the HPI. ROS Other: All systems not noted in ROS Statement are negative. Past Medical History Past Medical History: CVA/TIA Additional Past Medical History / Comment(s): MS- Migraines, malformation type one History of Any Multi-Drug Resistant Organisms: None Reported Past Surgical History: Adenoidectomy, Hernia Repair, Orthopedic Surgery, Tonsillectomy, Tubal Ligation Additional Past Surgical History / Comment(s): cyst removal x 2, brain sx 2018 Past Psychological History: Depression, PTSD Smoking Status: Never smoker Past Alcohol Use History: Occasional Past Drug Use History: Marijuana General Exam Limitations: no limitations General appearance: alert, in no apparent distress Head exam: Present: atraumatic, normocephalic, normal inspection Eye exam: Present: normal appearance, PERRL, EOMI Pupils: Present: normal accommodation ENT exam: Present: normal exam, normal oropharynx, mucous membranes moist, TM's normal bilaterally, normal external ear exam Neck exam: Present: normal inspection, full ROM. Absent: tenderness Respiratory exam: Present: normal lung sounds bilaterally. Absent: respiratory distress, wheezes, rales, rhonchi, stridor Cardiovascular Exam: Present: regular rate, normal rhythm, normal heart sounds. Absent: systolic murmur, diastolic murmur Extremities exam: Present: normal inspection, full ROM, normal capillary refill. Absent: tenderness, pedal edema, joint swelling, calf tenderness Back exam: Present: normal inspection, full ROM. Absent: tenderness, CVA tenderness (R), CVA tenderness (L) Neurological exam: Present: alert, oriented X3, CN II-XII intact, normal gait Psychiatric exam: Present: normal affect, normal mood. Absent: depressed, agitated Skin exam: Present: warm, dry, intact, normal color Course Vital Signs 06/10/20 06/10/20 21:07 22:30 Temperature 98.7 F 98.2 F Pulse Rate 121 H 102 H Respiratory 20 16 Rate Blood Pressure 130/93 134/90 O2 Sat by Pulse 98 98 Oximetry Medical Decision Making - Medical Decision Making 30-year-old female with history of migraines presenting to emergency Department chief complaint of migraine. Neurological examination is unremarkable. This is her typical migraine one-sided with photophobia and nausea but no vomiting. Patient was given IV fluids, analgesia and antiemetics. On reevaluation patient reports improvement in her nausea and photophobia. States the headache has only slightly improved. I discussed the possibility of giving the patient magnesium but she does taking these symptoms at home. I gave the patient 1 g of Dilaudid which she previously has received for the migraine headaches. On reevaluation, patient reports a permanent symptoms. She was advised to follow with her neurologist. Return parameters discussed the patient was understanding and agreeable. Case discussed with physician. - Lab Data Result diagrams: 06/10/20 21:49 06/10/20 21:49 Lab Results 06/10/20 06/10/20 Range/Units 21:49 21:49 WBC 6.7 (3.8-10.6) k/uL RBC 4.34 (3.80-5.40) m/uL Hgb 14.6 (11.4-16.0) gm/dL Hct 42.1 (34.0-46.0) % MCV 97.2 (80.0-100.0) fL MCH 33.7 (25.0-35.0) pg MCHC 34.7 (31.0-37.0) g/dL RDW 11.9 (11.5-15.5) % Plt Count 384 (150-450) k/uL MPV 6.6 Neutrophils % 62 % Lymphocytes % 30 % Monocytes % 5 % Eosinophils % 2 % Basophils % 1 % Neutrophils # 4.1 (1.3-7.7) k/uL Lymphocytes # 2.0 (1.0-4.8) k/uL Monocytes # 0.3 (0-1.0) k/uL Eosinophils # 0.1 (0-0.7) k/uL Basophils # 0.1 (0-0.2) k/uL Sodium 138 (137-145) mmol/L Potassium 4.4 (3.5-5.1) mmol/L Chloride 106 (98-107) mmol/L Carbon Dioxide 26 (22-30) mmol/L Anion Gap 6 mmol/L BUN 14 (7-17) mg/dL Creatinine 0.70 (0.52-1.04) mg/dL Est GFR (CKD-EPI)AfAm >90 (>60 ml/min/1.73 sqM) Est GFR (CKD-EPI)NonAf >90 (>60 ml/min/1.73 sqM) Glucose 109 H (74-99) mg/dL Calcium 9.7 (8.4-10.2) mg/dL Disposition Clinical Impression: Headache Disposition: HOME SELF-CARE Condition: Stable Instructions (If sedation given, give patient instructions): Acute Headache (ED) Additional Instructions: Take prescribed medication as directed. Follow-up with your primary care physician. Return to emergency department if symptoms worsen. Is patient prescribed a controlled substance at d/c from ED?: No Referrals: Nonstaff,Physician [Primary Care Provider] - 1-2 days Time of Disposition: 22:29
[2020-06-10] MEDS ORDERED: SODIUM CHLORIDE 0.9% 1,000 ML IV STA (21:35)
[2020-06-10] MEDS ORDERED: METOCLOPRAMIDE 5 MG/ML 2 ML VIAL IVP STA (21:36)
[2020-06-10] MEDS ORDERED: KETOROLAC 15 MG/ML 1 ML VIAL IVP STA (21:36)
[2020-06-10] MEDS ORDERED: FAMOTIDINE 20 MG/2 ML VIAL IV STA (21:36)
[2020-06-10] MEDS ORDERED: diphenhydrAMINE 50 MG/ML 1 ML VIAL IVP STA (21:36)
[2020-06-10 22:12] LABS: African American GFR (CKD) >90 (>60 ml/min/1.73 sqM); Anion Gap 6 mmol/L; Blood Urea Nitrogen 14 mg/dL (7-17); Calcium 9.7 mg/dL (8.4-10.2); Carbon Dioxide 26 mmol/L (22-30); Chloride 106 mmol/L (98-107); Glucose 109 mg/dL (74-99); Non-African American GFR(CKD) >90 (>60 ml/min/1.73 sqM); Potassium 4.4 mmol/L (3.5-5.1); Sodium 138 mmol/L (137-145)
[2020-06-10] MEDS ORDERED: HYDROmorphone 1 MG/ML 1 ML SYRINGE IVP STA (22:23)
[2020-06-10 22:33] VITALS: BP 134/90; PULSE 102; RESP 16; TEMP 98.2
[2020-06-10 22:33] LABS: Basophils # (A) 0.1 k/uL (0-0.2); Basophils % (A) 1 %; Eosinophils # (A) 0.1 k/uL (0-0.7); Eosinophils % (A) 2 %; HCT 42.1 % (34.0-46.0); HGB 14.6 gm/dL (11.4-16.0); Lymphocytes % (A) 30 %; MCH 33.7 pg (25.0-35.0); MCHC 34.7 g/dL (31.0-37.0); MCV 97.2 fL (80.0-100.0); Mean Platelet Volume 6.6; Monocytes # (A) 0.3 k/uL (0-1.0); Monocytes % (A) 5 %; Neutrophils # (A) 4.1 k/uL (1.3-7.7); Neutrophils % (A) 62 %; Platelet Count 384 k/uL (150-450); RBC 4.34 m/uL (3.80-5.40); RDW 11.9 % (11.5-15.5); WBC 6.7 k/uL (3.8-10.6)
== END 2020-06-10 22:46 | disposition home or self-care (01) ==
LOC: EC 21:05
DX: F32.9 Major depressive disorder, single episode, unspecified (principal); F43.10 Post-traumatic stress disorder, unspecified; Z79.82 Long term (current) use of aspirin; Z79.899 Other long term (current) drug therapy; R51.9 Headache, unspecified; Z88.1 Allergy status to other antibiotic agents; Z88.7 Allergy status to serum and vaccine; Z91.040 Latex allergy status; Z88.2 Allergy status to sulfonamides; Z88.0 Allergy status to penicillin; Z88.8 Allergy status to other drugs, medicaments and biological substances; Z86.69 Personal history of other diseases of the nervous system and sense organs; Z86.73 Personal history of transient ischemic attack (TIA), and cerebral infarction without residual deficits; Z98.890 Other specified postprocedural states
CPT/HCPCS: 36415; 80048; 85025; 96374; 96375 ×4; 96361; 99283; J1200; J2765; J1170; J1885

== ENCOUNTER 2020-08-25 17:00 | Emergency (ER) | payer MEDICARE, OTHER ==
[2020-08-25 17:25] VITALS: TEMP 98.3
[2020-08-25] MEDS ORDERED: ONDANSETRON 4 MG/2 ML VIAL IVP STA (17:54)
[2020-08-25] MEDS ORDERED: PANTOPRAZOLE 40 MG/10 ML VIAL IVP STA (17:54)
[2020-08-25] MEDS ORDERED: SODIUM CHLORIDE 0.9% 1,000 ML IV STA (17:54)
[2020-08-25 18:42] LABS: Basophils % (A) 0 %; Eosinophils # (A) 0.2 k/uL (0-0.7); Eosinophils % (A) 2 %; HCT 38.5 % (34.0-46.0); HGB 13.4 gm/dL (11.4-16.0); Lymphocytes % (A) 9 %; MCH 34.6 pg (25.0-35.0); MCV 98.8 fL (80.0-100.0); Mean Platelet Volume 6.1; Monocytes # (A) 0.3 k/uL (0-1.0); Monocytes % (A) 3 %; Neutrophils # (A) 9.6 k/uL (1.3-7.7); Neutrophils % (A) 86 %; Platelet Count 517 k/uL (150-450); RBC 3.89 m/uL (3.80-5.40); RDW 13.6 % (11.5-15.5); WBC 11.3 k/uL (3.8-10.6)
[2020-08-25] MEDS ORDERED: MORPHINE SULFATE 4 MG/ML SYRINGE IVP STA (18:47)
[2020-08-25 18:48] LABS: Appearance,Urine Clear (Clear); Bilirubin,Urine Negative (Negative); Blood,Urine Negative (Negative); Color,Urine Light Yellow; Glucose,Urine (UA) Negative (Negative); Ketones,Urine Negative (Negative); Leukocyte Esterase,Urine Negative (Negative); Nitrite,Urine Negative (Negative); PH, Urine 7.5 (5.0-8.0); Protein,Urine Negative (Negative); Specific Gravity,Urine 1.004 (1.001-1.035); Urobilinogen,Urine <2.0 mg/dL (<2.0)
--- NOTE | 2020-08-25 18:50 | ED ---
Abdominal Pain HPI - General Chief Complaint: Abdominal Pain Stated Complaint: Abd Pain Time Seen by Provider: 08/25/20 17:53 Source: patient Mode of arrival: ambulatory Limitations: no limitations - History of Present Illness Initial Comments: 30-year-old female with history of MS presents to the emergency department with chief complaint of abdominal pain. Patient reports the pain is located in the lower abdominal region, particularly left groin. Patient reports the pain has been constant for approximately one week. States the pain is sharp, 8/10. Reports no alleviating factors. States she went to another emergency medical center where she had a pelvic exam performed along with a pelvic ultrasound with no acute findings. She does have history of ovarian cyst in feels this could be the cause. However these findings were not found to be on the ultrasound. Patient reports the pain is radiating slightly to the left flank region as well. She does have history of kidney stones but states this does not feel like it. Denies any urinary or vaginal symptoms. Denies any concerns for or STDs. She does report occasional fevers and chills. Denies any chest pain or shortness of breath. - Related Data Home Medications Medication Instructions Recorded Confirmed Aspirin EC [Ecotrin Low Dose] 81 mg PO DAILY 12/15/19 05/16/20 Cetirizine HCl [Zyrtec] 10 mg PO DAILY 12/15/19 05/16/20 Cholecalciferol (Vitamin D3) 50 mcg PO DAILY 12/15/19 05/16/20 [Vitamin D3] DULoxetine HCL [Cymbalta] 120 mg PO DAILY 12/15/19 05/16/20 Folic Acid 1 mg PO DAILY 12/15/19 05/16/20 Ketorolac 30mg/Ml Injection 30 mg IM Q7D PRN 12/15/19 05/16/20 Multivitamins, Thera [Multivitamin 1 tab PO DAILY 12/15/19 05/16/20 (formulary)] Ondansetron [Zofran ODT] 4 mg PO Q12H PRN 12/15/19 05/16/20 Promethazine [Phenergan] 25 mg PO Q6H PRN 12/15/19 05/16/20 Topiramate [Topamax] 100 mg PO HS 12/15/19 05/16/20 tiZANidine [Zanaflex] 4 mg PO HS 12/15/19 05/16/20 diphenhydrAMINE [Benadryl] 25 - 50 mg PO HS PRN 12/24/19 05/16/20 Naproxen Sodium 550 mg PO DAILY PRN 05/16/20 05/16/20 Allergies Allergy/AdvReac Type Severity Reaction Status Date / Time amoxicillin Allergy Rash/Hives Verified 08/25/20 17:25 clindamycin Allergy Rash/Hives Verified 08/25/20 17:25 diphtheria,pertussis Allergy Rash/Hives Verified 08/25/20 17:25 (acellular),te [From Boostrix Tdap] latex Allergy Rash/Hives Verified 08/25/20 17:25 sertraline [From Zoloft] Allergy Rash/Hives/ Verified 08/25/20 17:25 Seizures Sulfa (Sulfonamide Allergy Rash/Hives Verified 08/25/20 17:25 Antibiotics) Review of Systems ROS Statement: Those systems with pertinent positive or pertinent negative responses have been documented in the HPI. ROS Other: All systems not noted in ROS Statement are negative. Past Medical History Past Medical History: CVA/TIA Additional Past Medical History / Comment(s): MS- Migraines, malformation type one History of Any Multi-Drug Resistant Organisms: None Reported Past Surgical History: Adenoidectomy, Hernia Repair, Orthopedic Surgery, Tonsi llectomy, Tubal Ligation Additional Past Surgical History / Comment(s): cyst removal x 2, brain sx 2018 Past Psychological History: Depression, PTSD Smoking Status: Never smoker Past Alcohol Use History: Occasional Past Drug Use History: Marijuana General Exam Limitations: no limitations General appearance: alert, in no apparent distress Head exam: Present: atraumatic, normocephalic, normal inspection Eye exam: Present: normal appearance, PERRL, EOMI Pupils: Present: normal accommodation ENT exam: Present: normal exam, normal oropharynx, mucous membranes moist, TM's normal bilaterally, normal external ear exam Neck exam: Present: normal inspection, full ROM. Absent: tenderness Respiratory exam: Present: normal lung sounds bilaterally. Absent: respiratory distress Cardiovascular Exam: Present: regular rate, normal rhythm, normal heart sounds GI/Abdominal exam: Present: soft, tenderness (Left lower quadrant abdominal tenderness). Absent: distended Extremities exam: Present: normal inspection, full ROM, normal capillary refill. Absent: tenderness Back exam: Present: normal inspection, full ROM, tenderness, CVA tenderness (L). Absent: CVA tenderness (R) Neurological exam: Present: alert, oriented X3, normal gait Psychiatric exam: Present: normal affect, normal mood Skin exam: Present: warm, dry, intact, normal color Course Vital Signs 08/25/20 08/25/20 17:22 19:00 Temperature 98.3 F Pulse Rate 118 H 106 H Respiratory 19 20 Rate Blood Pressure 116/74 127/90 O2 Sat by Pulse 99 100 Oximetry Medical Decision Making - Medical Decision Making 30-year-old female presents emergency Department with a chief complaint of abdominal pain. Medical records reviewed. Patient has been evaluated multiple times for abdominal pain with no significant findings. This pain has been persistent for 1 week. She had a recent ultrasound in another facility with no acute findings. CBC reveals mild leukocytosis at 11.2 which I suspect is reactive secondary to the vomiting. She does have left lower quadrant abdominal tenderness. I do have a concern for diverticulitis. CT of abdomen and pelvis found no acute processes. CMP and UA unremarkable. Not . 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 Strict return parameters were tho roughly discussed with patient who is understandable and agreeable. Case discussed with Dr. Reece. - Lab Data Result diagrams: 08/25/20 18:15 08/25/20 18:15 Lab Results 08/25/20 08/25/20 08/25/20 Range/Units 18:15 18:15 18:15 WBC 11.3 H (3.8-10.6) k/uL RBC 3.89 (3.80-5.40) m/uL Hgb 13.4 (11.4-16.0) gm/dL Hct 38.5 (34.0-46.0) % MCV 98.8 (80.0-100.0) fL MCH 34.6 (25.0-35.0) pg MCHC 35.0 (31.0-37.0) g/dL RDW 13.6 (11.5-15.5) % Plt Count 517 H (150-450) k/uL MPV 6.1 Neutrophils % 86 % Lymphocytes % 9 % Monocytes % 3 % Eosinophils % 2 % Basophils % 0 % Neutrophils # 9.6 H (1.3-7.7) k/uL Lymphocytes # 1.0 (1.0-4.8) k/uL Monocytes # 0.3 (0-1.0) k/uL Eosinophils # 0.2 (0-0.7) k/uL Basophils # 0.0 (0-0.2) k/uL Sodium (137-145) mmol/L Potassium (3.5-5.1) mmol/L Chloride (98-107) mmol/L Carbon Dioxide (22-30) mmol/L Anion Gap mmol/L BUN (7-17) mg/dL Creatinine (0.52-1.04) mg/dL Est GFR (CKD-EPI)AfAm (>60 ml/min/1.73 sqM) Est GFR (CKD-EPI)NonAf (>60 ml/min/1.73 sqM) Glucose (74-99) mg/dL Calcium (8.4-10.2) mg/dL Total Bilirubin (0.2-1.3) mg/dL AST (14-36) U/L ALT (4-34) U/L Alkaline Phosphatase (38-126) U/L Total Protein (6.3-8.2) g/dL Albumin (3.5-5.0) g/dL Lipase (23-300) U/L Urine Color Light Yellow Urine Appearance Clear (Clear) Urine pH 7.5 (5.0-8.0) Ur Specific [place] 1.004 (1.001-1.035) Urine Protein Negative (Negative) Urine Glucose (UA) Negative (Negative) Urine Ketones Negative (Negative) Urine Blood Negative (Negative) Urine Nitrite Negative (Negative) Urine Bilirubin Negative (Negative) Urine Urobilinogen <2.0 (<2.0) mg/dL Ur Leukocyte Esterase Negative (Negative) Urine HCG, Qual Not Detected (Not Detectd) 08/25/20 Range/Units 18:15 WBC (3.8-10.6) k/uL RBC (3.80-5.40) m/uL Hgb (11.4-16.0) gm/dL Hct (34.0-46.0) % MCV (80.0-100.0) fL MCH (25.0-35.0) pg MCHC (31.0-37.0) g/dL RDW (11.5-15.5) % Plt Count (150-450) k/uL MPV Neutrophils % % Lymphocytes % % Monocytes % % Eosinophils % % Basophils % % Neutrophils # (1.3-7.7) k/uL Lymphocytes # (1.0-4.8) k/uL Monocytes # (0-1.0) k/uL Eosinophils # (0-0.7) k/uL Basophils # (0-0.2) k/uL Sodium 139 (137-145) mmol/L Potassium 4.8 (3.5-5.1) mmol/L Chloride 99 (98-107) mmol/L Carbon Dioxide 29 (22-30) mmol/L Anion Gap 11 mmol/L BUN 12 (7-17) mg/dL Creatinine 0.61 (0.52-1.04) mg/dL Est GFR (CKD-EPI)AfAm >90 (>60 ml/min/1.73 sqM) Est GFR (CKD-EPI)NonAf >90 (>60 ml/min/1.73 sqM) Glucose 118 H (74-99) mg/dL Calcium 10.1 (8.4-10.2) mg/dL Total Bilirubin 0.4 (0.2-1.3) mg/dL AST 27 (14-36) U/L ALT 26 (4-34) U/L Alkaline Phosphatase 44 (38-126) U/L Total Protein 7.6 (6.3-8.2) g/dL Albumin 4.9 (3.5-5.0) g/dL Lipase 48 (23-300) U/L Urine Color Urine Appearance (Clear) Urine pH (5.0-8.0) Ur Specific [place] (1.001-1.035) Urine Protein (Negative) Urine Glucose (UA) (Negative) Urine Ketones (Negative) Urine Blood (Negative) Urine Nitrite (Negative) Urine Bilirubin (Negative) Urine Urobilinogen (<2.0) mg/dL Ur Leukocyte Esterase (Negative) Urine HCG, Qual (Not Detectd) Disposition Clinical Impression: Abdominal pain, Nausea & vomiting Disposition: HOME SELF-CARE Condition: Stable Instructions (If sedation given, give patient instructions): Abdominal Pain (ED) Additional Instructions: Please return to the Emergency Department if symptoms worsen or any other c oncerns. Is patient prescribed a controlled substance at d/c from ED?: No Referrals: Nonstaff,Physician [Primary Care Provider] - 1-2 days Time of Disposition: 20:11
[2020-08-25 18:55] LABS: ALT 26 U/L (4-34); AST 27 U/L (14-36); African American GFR (CKD) >90 (>60 ml/min/1.73 sqM); Albumin 4.9 g/dL (3.5-5.0); Alkaline Phosphatase 44 U/L (38-126); Anion Gap 11 mmol/L; Blood Urea Nitrogen 12 mg/dL (7-17); Calcium 10.1 mg/dL (8.4-10.2); Carbon Dioxide 29 mmol/L (22-30); Chloride 99 mmol/L (98-107); Glucose 118 mg/dL (74-99); Lipase 48 U/L (23-300); Non-African American GFR(CKD) >90 (>60 ml/min/1.73 sqM); Potassium 4.8 mmol/L (3.5-5.1); Sodium 139 mmol/L (137-145); Total Bilirubin 0.4 mg/dL (0.2-1.3); Total Protein 7.6 g/dL (6.3-8.2)
[2020-08-25 19:16] VITALS: BP 127/90; PULSE 106; RESP 20
--- NOTE | 2020-08-25 19:28 | CT ---
EXAMINATION TYPE: CT abdomen pelvis w con DATE OF EXAM: 08/25/2020 HISTORY: Abdominal pain x1 week CT DLP: 945.6mGycm Automated Exposure Control for Dose Reduction was Utilized. CONTRAST: CT scan of the abdomen and pelvis is performed without oral but with IV Contrast, patient injected wi th 100 mL of Isovue 300. COMPARISON: CT abdomen and pelvis January 19, 2020 FINDINGS: LUNG BASES: No significant abnormality is appreciated. LIVER/GB: No significant abnormality is appreciated. PANCREAS: No significant abnormality is seen. SPLEEN: No significant abnormality is seen. ADRENALS: No significant abnormality is seen. KIDNEYS: No significant abnormality is seen. BOWEL: Normal-appearing appendix from cecum. No suspicious small or large bowel dilatation. Slightly suboptimal evaluation of bowel as patient has little intra-abdominal fat and lack of enteric contrast . UTERUS/ADNEXA: Anteverted uterus. Both ovaries stable and within normal limits in size. Small amount of free fluid in the pelvic cul-de-sac axial image 73 on current study is nonspecific. LYMPH NODES: No greater than 1cm abdominal or pelvic lymph nodes are appreciated. OSSEOUS STRUCTURES: No significant abnormality is seen. OTHER: No significant additional abnormality is seen. IMPRESSION: No significant new or acute finding is seen to account for patient's clinical symptoms of left lower quadrant pain.
[2020-08-25] MEDS ORDERED: ACET/COD 300 MG/30 MG STARTER PACK 6 TAB BTL PO STA (20:11)
== END 2020-08-25 20:45 | disposition home or self-care (01) ==
LOC: EC 17:00
DX: R10.32 Left lower quadrant pain (principal); R11.2 Nausea with vomiting, unspecified; F32.9 Major depressive disorder, single episode, unspecified; Z86.73 Personal history of transient ischemic attack (TIA), and cerebral infarction without residual deficits; Z91.040 Latex allergy status; Z88.2 Allergy status to sulfonamides; Z88.0 Allergy status to penicillin; Z79.82 Long term (current) use of aspirin; R50.9 Fever, unspecified; Z87.442 Personal history of urinary calculi
CPT/HCPCS: 36415; 80053; 83690; 85025; 81003; 81025; 74177; 99284; 96374; 96375 ×2; 96361; J2270; J2405; C9113; Q9967

== ENCOUNTER 2020-11-03 12:58 | Emergency (ER) | payer MEDICARE, OTHER ==
--- NOTE | 2020-11-03 14:44 | ED ---
General Adult HPI - General Chief complaint: Extremity Injury, Upper Stated complaint: R Finger Lac Time Seen by Provider: 11/03/20 14:04 Source: patient, RN notes reviewed Mode of arrival: ambulatory Limitations: no limitations - History of Present Illness Initial comments: 30-year-old female with a past medical history of CVA, MS presents to the emerg ency room for a chief complaint of right index finger pain. Patient reports she was carrying something and her left hand doctor but it got caught on her right fingertip. States it pulled her nail off the nail bed. Patient reports it also hurt her fingertip. Patient did go to urgent care and they sent her to the emergency room.Patient has no other complaints at this time including shortness of breath, chest pain, abdominal pain, nausea or vomiting, headache, or visual changes. - Related Data Home Medications Medication Instructions Recorded Confirmed Aspirin EC [Ecotrin Low Dose] 81 mg PO DAILY 12/15/19 05/16/20 Cetirizine HCl [Zyrtec] 10 mg PO DAILY 12/15/19 05/16/20 Cholecalciferol (Vitamin D3) 50 mcg PO DAILY 12/15/19 05/16/20 [Vitamin D3] DULoxetine HCL [Cymbalta] 120 mg PO DAILY 12/15/19 05/16/20 Folic Acid 1 mg PO DAILY 12/15/19 05/16/20 Ketorolac 30mg/Ml Injection 30 mg IM Q7D PRN 12/15/19 05/16/20 Multivitamins, Thera [Multivitamin 1 tab PO DAILY 12/15/19 05/16/20 (formulary)] Ondansetron [Zofran ODT] 4 mg PO Q12H PRN 12/15/19 05/16/20 Promethazine [Phenergan] 25 mg PO Q6H PRN 12/15/19 05/16/20 Topiramate [Topamax] 100 mg PO HS 12/15/19 05/16/20 tiZANidine [Zanaflex] 4 mg PO HS 12/15/19 05/16/20 diphenhydrAMINE [Benadryl] 25 - 50 mg PO HS PRN 12/24/19 05/16/20 Naproxen Sodium 550 mg PO DAILY PRN 05/16/20 05/16/20 Allergies Allergy/AdvReac Type Severity Reaction Status Date / Time amoxicillin Allergy Rash/Hives Verified 11/03/20 13:00 clindamycin Allergy Rash/Hives Verified 11/03/20 13:00 diphtheria,pertussis Allergy Rash/Hives Verified 11/03/20 13:00 (acellular),te [From Boostrix Tdap] latex Allergy Rash/Hives Verified 11/03/20 13:00 sertraline [From Zoloft] Allergy Rash/Hives/ Verified 11/03/20 13:00 Seizures Sulfa (Sulfonamide Allergy Rash/Hives Verified 11/03/20 13:00 Antibiotics) Review of Systems ROS Statement: Those systems with pertinent positive or pertinent negative responses have been documented in the HPI. ROS Other: All systems not noted in ROS Statement are negative. Past Medical History Past Medical History: CVA/TIA Additional Past Medical History / Comment(s): MS- Migraines, malformation type one History of Any Multi-Drug Resistant Organisms: None Reported Past Surgical History: Adenoidectomy, Hernia Repair, Orthopedic Surgery, Tonsillectomy, Tubal Ligation Additional Past Surgical History / Comment(s): cyst removal x 2, brain sx 2018 Past Psychological History: Depression, PTSD Smoking Status: Never smoker Past Alcohol Use History: None Reported Past Drug Use History: Marijuana General Exam Limitations: no limitations General appearance: alert, in no apparent distress Head exam: Present: atraumatic, normocephalic, normal inspection Eye exam: Present: normal appearance, PERRL, EOMI. Absent: scleral icterus, conjunctival injection, periorbital swelling ENT exam: Present: normal exam, mucous membranes moist Neck exam: Present: normal inspection. Absent: tenderness, meningismus, lymphadenopathy Respiratory exam: Present: normal lung sounds bilaterally. Absent: respiratory distress, wheezes, rales, rhonchi, stridor Cardiovascular Exam: Present: regular rate, normal rhythm, normal heart sounds. Absent: systolic murmur, diastolic murmur, rubs, gallop, clicks Extremities exam: Present: tenderness (Tenderness to the distal phalanx of the right second digit.), normal capillary refill (Capillary refill less than 2 seconds in all digits of the right hand. Radial pulse 2+ right upper extremity.), joint swelling (Mild edema of the distal phalanx right second digit), other (senstation intact R 2nd digit). Absent: full ROM (Full range of motion of the right second PIP, and MCP joint. She is unable to fully extend the DIP joint. ) Course Vital Signs 11/03/20 13:01 Temperature 97.7 F Pulse Rate 76 Respiratory 18 Rate Blood Pressure 129/78 O2 Sat by Pulse 100 Oximetry Medical Decision Making - Medical Decision Making There is no laceration. Patient does have slight avulsion from the nailbed however nail is in place and intact. Patient has acrylic in place. It has grown out and I do not see any evidence of subungual hematoma in the proximal portion. X-ray of the right finger shows a fracture through the base of the distal phalanx right second digit. No evidence for intra-articular extension. Patient has limited extension of the DIP joint. Unclear if this is secondary to pain and swelling or functional deficit. At this time patient was splinted and needs to follow up with orthopedics ADALBERTO. I discussed rice therapy and Motrin and Tylenol for pain. She will return for any worsening symptoms. Disposition Clinical Impression: Fracture, finger, distal phalanx Disposition: HOME SELF-CARE Condition: Good Instructions (If sedation given, give patient instructions): Finger Fracture (ED) Additional Instructions: Please wear splint. Follow-up with orthopedics by calling today for the earliest appointment. Rest ice and elevate the finger. Take Motrin and Tylenol for pain. You can alternate these every 3 hours. Return to the emergency room for any worsening symptoms. Is patient prescribed a controlled substance at d/c from ED?: No Referrals: Nonstaff,Physician [Primary Care Provider] - 1-2 days Salas Greenwood DO [Doctor of Osteopathic Medicine] - 1-2 days Time of Disposition: 15:02
--- NOTE | 2020-11-03 14:45 | XR ---
EXAMINATION TYPE: XR finger RT DATE OF EXAM: 11/03/2020 CLINICAL HISTORY: pain TECHNIQUE: 3 views of the right second digit are submitted. COMPARISON: None FINDINGS: Fracture through the base of the distal phalanx right second digit. No evidence for intra-a rticular extension. Soft tissue edema seen. No additional fractures noted. Joint spaces are well-pres erved. IMPRESSION: As above
[2020-11-03 15:29] VITALS: BP 127/74; PULSE 70; RESP 17; TEMP 98.1
== END 2020-11-03 15:35 | disposition home or self-care (01) ==
LOC: EC 12:58
DX: S62.630A Displaced fracture of distal phalanx of right index finger, initial encounter for closed fracture (principal); F32.9 Major depressive disorder, single episode, unspecified; Z86.73 Personal history of transient ischemic attack (TIA), and cerebral infarction without residual deficits; Z79.82 Long term (current) use of aspirin; Z88.2 Allergy status to sulfonamides; Z91.040 Latex allergy status; W23.0XXA Caught, crushed, jammed, or pinched between moving objects, initial encounter; Y92.096 Garden or yard of other non-institutional residence as the place of occurrence of the external cause
CPT/HCPCS: 99283

== ENCOUNTER 2020-11-04 12:43 | Day surgery (SDC) | payer MEDICARE, OTHER ==
[2020-11-04 14:31] VITALS: TEMP 97.3
[2020-11-04] MEDS ORDERED: ONDANSETRON 4 MG/2 ML VIAL ONE (14:31)
[2020-11-04] MEDS ORDERED: ONDANSETRON 4 MG/2 ML VIAL IVP ONE (14:47)
[2020-11-04] MEDS ORDERED: DEXAMETHASONE SOD PHOSPHATE 4 MG/ML 1 ML VIAL IV ONE (14:47)
[2020-11-04] MEDS ORDERED: SCOPOLAMINE 1.5MG/72HR PATCH TRANSDERM ONE (14:50)
[2020-11-04] MEDS ORDERED: fentaNYL (PF) 50 MCG/ML 2 ML AMP IV ONE ×2 (15:00→15:12)
[2020-11-04] MEDS ORDERED: LACTATED RINGERS 1,000 ML IV ONE (15:04)
--- NOTE | 2020-11-04 16:59 | P.HPOR ---
History of Present Illness H&P Date: 11/04/20 Chief Complaint: RIF fracture 30 yo female dropped a bucket of dirt on her RIF causing severe pain. Seen in ED yesterday sent home with splint. She c/o exquisite pain in her RIF. She is RHD. She c/o pain and some numbness at the tip of the finger. No other injury. She states she think is is broken. Review of Systems 14 points review of systems completed and as stated in HPI, all other systems reviewed are negative. Past Medical History Past Medical History: CVA/TIA Additional Past Medical History / Comment(s): MS- Migraines, malformation type one History of Any Multi-Drug Resistant Organisms: None Reported Past Surgical History: Adenoidectomy, Hernia Repair, Orthopedic Surgery, Tonsill ectomy Additional Past Surgical History / Comment(s): cyst removal x 2, brain sx 2018 Past Anesthesia/Blood Transfusion Reactions: No Reported Reaction Past Psychological History: Depression, PTSD Smoking Status: Never smoker Past Alcohol Use History: None Reported Past Drug Use History: Marijuana Medications and Allergies Home Medications Medication Instructions Recorded Confirmed Type Aspirin EC [Ecotrin Low Dose] 81 mg PO DAILY 12/15/19 05/16/20 History Cetirizine HCl [Zyrtec] 10 mg PO DAILY 12/15/19 05/16/20 History Cholecalciferol (Vitamin D3) 50 mcg PO DAILY 12/15/19 05/16/20 History [Vitamin D3] DULoxetine HCL [Cymbalta] 120 mg PO DAILY 12/15/19 05/16/20 History Folic Acid 1 mg PO DAILY 12/15/19 05/16/20 History Ketorolac 30mg/Ml Injection 30 mg IM Q7D PRN 12/15/19 05/16/20 History Multivitamins, Thera [Multivitamin 1 tab PO DAILY 12/15/19 05/16/20 History (formulary)] Ondansetron [Zofran ODT] 4 mg PO Q12H PRN 12/15/19 05/16/20 History Promethazine [Phenergan] 25 mg PO Q6H PRN 12/15/19 05/16/20 History tiZANidine [Zanaflex] 4 mg PO HS 12/15/19 05/16/20 History diphenhydrAMINE [Benadryl] 25 - 50 mg PO HS PRN 12/24/19 05/16/20 History Naproxen Sodium 550 mg PO DAILY PRN 05/16/20 05/16/20 History Cephalexin [Keflex] 500 mg PO Q6HR 7 Days #28 cap 11/03/20 Rx Fluticasone Nasal Gerald [Flonase 2 spr EA NOSTRIL DAILY 11/04/20 11/04/20 Histor y Nasal Gerald] Metoprolol Tartrate [Lopressor] 1 tab PO BID 11/04/20 11/04/20 History Prochlorperazine [Compazine] 10 mg PO Q8H 11/04/20 11/04/20 History lamoTRIgine [lamoTRIgine Odt] 50 mg PO 11/04/20 History Allergies Allergy/AdvReac Type Severity Reaction Status Date / Time adhesive Allergy Rash/Hives Verified 11/04/20 14:45 amoxicillin Allergy Rash/Hives Verified 11/03/20 13:00 ciprofloxacin Allergy Rash/Hives Verified 11/04/20 14:45 clindamycin Allergy Rash/Hives Verified 11/03/20 13:00 diphtheria,pertussis Allergy Rash/Hives Verified 11/03/20 13:00 (acellular),te [From Boostrix Tdap] doxylamine Allergy Unknown Verified 11/04/20 14:45 ketamine Allergy Dyspnea Verified 11/04/20 14:45 latex Allergy Rash/Hives Verified 11/03/20 13:00 montelukast Allergy Confusion Verified 11/04/20 14:45 Penicillins Allergy Rash/Hives Verified 11/04/20 14:45 sertraline [From Zoloft] Allergy Rash/Hives/ Verified 11/03/20 13:00 Seizures Sulfa (Sulfonamide Allergy Rash/Hives Verified 11/03/20 13:00 Antibiotics) Physical Examination Osteopathic Statement: *. No significant issues noted on an osteopathic structural exam other than those noted in the History and Physical/Consult. Patient is alert and oriented 3 appears well-nourished well-hydrated is in no acute distress. They does not appear septic. On exam the patient has no tenderness to palpation of her thoracic or lumbar spine. There is no edema or ballottement sign. Lower extremities with 5 out of 5 strength in all major muscle groups Upper extremities show 5/5 strength in all major muscle groups. There is FROM that is painless of the b/l UE and LE in all major joints. They are intact to light touch sensation in L2 to S1 nerve distribution. Patient has palpable dorsalis pedis was posterior tibial pulses. Compartments are soft and compressible. Patient shows a negative Homans, Michaels's, negative Babinski's negative clonus bilaterally. negative straight leg raise bilaterally. No tensioning signs. Cranial nerves II through XII are grossly intact. Overall alignment is well-maintained in the sagittal coronal planes. right index finger is extremely swollen she has a large subungual hematoma with the nail plate still in place and has not been removed. She is exquisite swelling about the right index finger at the distal portion and distal phalanx. She is unable to move her DIP joint. She has good motion at the PIP and MCP joint of the right index finger however very painful due to her current injury. The remainder of her fingers have no other issues PIP DIP joints as well as MCP joints move freely. She is intact median radial ulnar nerve neurovascularly and motor. Results Right hand films show right index finger distal phalanx fracture at the base of the distal phalanx. There is distraction at this area there is minor displacement. There is swelling about the area as well Assessment and Plan Assessment: 30-year-old female right index finger distal phalanx fracture with nailbed injury Plan: recess risks and benefits of surgery. At this time she is a large subungual hematoma which likely needs to be evacuated as well as a nail plate fixation and nail bed repair due to the type of fracture that she has could have interposition of the germinal matrix and we will assess this intraoperatively. She will be sent to the hospital for labs and we will attempt to fix this today. Orthopedic Surgery Risk Review Leslye Sanchez is a 30-year-old female presenting for evaluation of sudden onset right index fingerpain, inability to move right index finger after dropping a large bucket of dirt on it. It was my pleasure to have seen and examinedLeslye Sanchez . move finger after she dropped a large bucket of dirt on it In our visit today we have had a chance to go over subjective complaints, physical examination findings and treatments including the natural course history without intervention and various interventional options. her imaging demonstrates distal phalanx fracture base the distal phalanx with distraction displacement and nailbed injury. On physical exam, Leslye Sanchez demonstrates pain with motion of right index finger distal phalanx, which is NV intact at this time. I have explained to the patient that this fracture needs stabilization. Based on the patients imaging, physical exam, and the rapid progression and disabling nature of her symptoms, at this time I recommend surgery in the form or a: right index finger nailbed fixation with nail plate removal and index finger CRP P I discussed the risk and benefits of this procedure at length with Leslye Sanchez Questions were invited and answered, and the patient wishes to proceed as outlined below. Currently, I am recommendin. [procedure] 2. Review of surgical risks and benefits as well as an educational packet on the proposed surgical procedure. Risks: All surgical procedures come with inherent risks, including those related to po sitioning, anesthesia, intraoperative findings, and postoperative complications. It is important to understand that surgery does not come with any guarantee of a successful outcome as complications and adverse events are always possible. The patient was given a handout discussing the surgical procedure and risks associated with the intervention, both of which were discussed with the patient. These risks include but are not limited to the following: - Experiencing same, different or even worse symptoms compared to before surgery. - Requiring further surgery or other forms of treatment presently or at some time in the future . - On an extreme but fortunately relatively rare basis severe complication such as blindness, stroke, heart attack, temporary and/or permanent nerve injury, paralysis, coma, or may occur, sometimes without known explanation. - Surgical complications may include but are not limited to risk of infection, fluid accumulation in the surgical dissection site, including a seroma or hematoma, that requires additional surgery, wound drainage, bleeding, new numbness or weakness, vision changes/loss, spinal fluid leakage, non-healing and/or infected incision, headaches, difficulty or inability to swallow, hoarseness, hemopneumothorax, pneumothorax, injury to nerves, spinal cord, blood vessels, lymphatics or other vital organs (i.e., bowel injury, injury to the great vessels); heterotopic bone formation; complications related to the hardware such as screws, rods, including misplaced hardware, device failure, hardware fracture/breakage, or hardware loosening; retained surgical instrumentations or devices and the need for further surgery. - Medical risks of the planned surgery include but are not limited to ge neralized Infections to the whole body or local areas outside of the surgical site (sepsis), heart attack, bleeding, anaphylaxis, meningitis, seizure, epilepsy, hearing loss, burn bass, laceration of the head or other areas of the body, bruising, hypersensitivity of the skin, bladder over distension; allergic reaction; shoulder injury related to positioning; fat, blood and air clots to other areas of the body like heart, lungs, brain; failure of internal organs such as lungs, kidneys, liver and excessive bleeding. If blood transfusions are necessary, note that transfusions may cause intolerance reactions such as anaphylaxis or other complex reactions. Despite best efforts, the results of surgery might not heal in terms of bone, soft tissues such as skin, fascia, ligaments, and joints. [facility] is an educational center that serves as a training facility for physician assistants, nurses, orthopedic residents and fellows. Residents are physicians who are completing their surgical intensive training following medical school. They assist in the operating room with direct supervision of the attending surgeons. [place] are surgeons who have completed their training and eligible for board certification. They have opted for an elective year of more specialized training in their field. They assist in the operating room under the supervision of the attending surgeons. Physician assistants are medically trained surgical providers who function in the outpatient, inpatient, and operating room setting under the direct supervision of the attending surgeon. [facility] has multiple operating rooms with single and overlapping rooms running daily. They currently function under the required guidelines as produced by the [employer] with regards to the overlapping rooms and will continue to comply with changes to this policy as they occur. The requirements include and are complied with as follows: (1) the critical portions of the overlapping rooms will not occur at the same time, (2) the attending physician will be physically present during the critical portions of the procedure and immediately available during the entire case, and (3) a back-up attending is designated should the primary attending not be immediately available. The patient has had a chance to review all the listed information, has been given print outs detailing this information, and has had all his/her questions answered to their satisfaction. It was my pleasure to have seen and examined Leslye Sanchez . In our visit today we have had a chance to go over my understanding of our patient's current condition, the natural course history without intervention and various interventional options. Questions were invited and answered, and the patient wishes to proceed as outlined above. I have seen and examined the patient for 25 minutes and we have spent more than 50% of the time in repeat and detailed counseling about the patient's condition, its natural course history with out and as much as can be predicted with surgery and re-review of various surgical treatment options. In conclusion, Leslye Laura requested we proceed with the above suggested surgery and are willing to accept risks and limitations of the suggested surgery as nature of the disease process and our best attempts at treatment for the condition. Thank you again for allowing us to be part of your patient's care. Please don't hesitate to contact me if you have any further questions. Signed and authenticated by: Salas [facility] [id number] [facility], [address] [id number]
[2020-11-04] MEDS ORDERED: fentaNYL (PF) 50 MCG/ML 2 ML AMP ONE (17:08)
[2020-11-04] MEDS ORDERED: MIDAZOLAM 2 MG/2 ML VIAL ONE (17:08)
[2020-11-04] MEDS ORDERED: LIDOCAINE 1% INJ 10MG/ML (20 ML MDV) ONE (17:08)
[2020-11-04] MEDS ORDERED: PROPOFOL 10 MG/ML 20 ML VIAL IV ONE (17:08)
[2020-11-04] MEDS ORDERED: BUPIVACAINE (PF) 0.5% 30 ML VIAL SQ ONE (17:20)
[2020-11-04 19:35] VITALS: BP 138/83; PULSE 109; RESP 16
--- NOTE | 2020-11-05 08:27 | P.OP ---
Date of Procedure: 11/04/20 Preoperative Diagnosis: Open RIF distal phalynx fracture, displaced Central slip injury Nailbed laceration Postoperative Diagnosis: Open RIF distal phalynx fracture, displaced Central slip injury Nailbed laceration Procedure(s) Performed: 1. CRPP right index finger distal phalanx 2. nail plate removal with nail bed repair and germinal matrix repair Implants: 0 Anesthesia: MAC, regional Surgeon: Salas Greenwood Bed Worker #1: Devon Oshea ( was present for the entire case and the surgery complexity of the case) Estimated Blood Loss (ml): 5 IV fluids (ml): 500 Urine output (ml): 0 Pathology: none sent Condition: stable Disposition: PACU Indications for Procedure: 10-year-old female dropped a large bucket dirt on her right index finger causing swelling pain and fracture she was found have a distal phalanx fracture the base as well as a nailbed laceration and she is follow-up in office. She had exquisite pain still and elected for fixation of this with nail plate removal. Operative Findings: See above Description of Procedure: The patient was seen and examined in the preoperative area. All preoperative pr otocols were followed. Informed consent was obtained risks and benefits of the procedure were discussed at length. Risks including bleeding infection damage to the surrounding tissue and risk of reoperation were discussed with the patient. Risk of anesthesia up to and including was a discussed with the patient. These are outlined in the risk reviewed. They were willing to accept these risks and all of the risks of surgery. The patient was given a weight- based dose of antibiotics in the form of Ancef 2 g IVPB 1. The patient was seen and evaluated by the anesthesia team who deemed them fit for surgery. The site was marked, the patient was willing to proceed with the procedure. The patient was transferred to the operative suite by the Department of anesthesia. There were then drifted off to sleep by the department of anesthesia and sedation with local anesthetic. A finger block was performed with half percent Marcaine without epinephrine anesthesia was used. Once ad equate anesthesia had been obtained the patient was carefully transferred to the operative bed. All bony prominences were padded accordingly. SCDs were placed on the nonoperative lower extremities. Arms were well padded. right upper extremity was exposed and placed on an arm board An well-padded. Preoperative briefing was done with the operative team and everyone was ready for the procedure to start. The patients Right upper extremity was then prepped and draped in the normal sterile fashion. Timeout was then performed and all parties in agreement with the procedure to be performed. a [place] drain was placed around the patient's right index finger as a tourniquet and a stat was placed over this. The nailplate was then removed with blunt dissection using a freer elevator. Once it was removed the nail plate was placed into sterile saline and cleaned. We then explored and investigated the nail bed which had a laceration to it within the germinal matrix which was inter posed in the fracture site. We made two incisions proximal to the epinychoium to expose this and reduce the fracture and removed the germinal from the fracture. We then tacked the germinal matrix down to the underlying tissue proximally this approximated very well. We repaired this with 5-0 chromic stitch. Once this was repaired with then placed a 0.45 K wire from distal to proximal to the midportion of the distal phalanx pinning it through the DIP joint into slight extension To allow for healing of the central slip. The fracture was then compressed and allowed for good apposition. the wound was then cleaned. A fake nail was trimmed and placed into the germinal matrix to maintain the eponychial folds. The proximal incisions were closed with 4.0 chromic and approximated well. The twila was released and there was good cap refill in the fingertip. Pin cap was placed. The wound was irrigated thoroughly The right index finger was then placed into a baseball splint and wrapped with Kerlix 4 x 4's and placed and overwrapped with an Jin wrap. The patient was then transferred back to their hospital bed. There were awakened by department of anesthesia having tolerated the procedure very well with no complications. The patient was then transported to the postoperative care unit in stable condition.
== END 2020-11-04 19:35 | disposition home or self-care (01) ==
LOC: OR 12:43
PROVIDERS: ATTEND Orthopaedic Surgery
DX: S62.630A Displaced fracture of distal phalanx of right index finger, initial encounter for closed fracture (principal); W20.8XXA Other cause of strike by thrown, projected or falling object, initial encounter; G43.909 Migraine, unspecified, not intractable, without status migrainosus; Z86.73 Personal history of transient ischemic attack (TIA), and cerebral infarction without residual deficits; Z90.89 Acquired absence of other organs; Z98.890 Other specified postprocedural states; F32.9 Major depressive disorder, single episode, unspecified; F43.10 Post-traumatic stress disorder, unspecified; Z79.82 Long term (current) use of aspirin; Z79.899 Other long term (current) drug therapy; Z88.1 Allergy status to other antibiotic agents; Z91.040 Latex allergy status; Z88.0 Allergy status to penicillin; Z88.2 Allergy status to sulfonamides; Z88.8 Allergy status to other drugs, medicaments and biological substances; Z91.09 Other allergy status, other than to drugs and biological substances
CPT/HCPCS: 26756; 11760; 81025; 84703; C1713; J2250; J1100; J0690; J2405; J2001; J3010; J2704

== ENCOUNTER → 2020-11-04 | Outpatient (CLI) | payer MEDICARE, OTHER ==
[2020-11-04 14:53] LABS: Basophils % (A) 0 %; Eosinophils # (A) 0.1 k/uL (0-0.7); Eosinophils % (A) 1 %; HCT 41.5 % (34.0-46.0); HGB 14.4 gm/dL (11.4-16.0); Lymphocytes # (A) 1.3 k/uL (1.0-4.8); Lymphocytes % (A) 21 %; MCH 33.9 pg (25.0-35.0); MCHC 34.7 g/dL (31.0-37.0); MCV 97.7 fL (80.0-100.0); Mean Platelet Volume 6.1; Monocytes # (A) 0.4 k/uL (0-1.0); Monocytes % (A) 6 %; Neutrophils # (A) 4.4 k/uL (1.3-7.7); Neutrophils % (A) 70 %; Platelet Count 377 k/uL (150-450); RBC 4.25 m/uL (3.80-5.40); RDW 11.9 % (11.5-15.5); WBC 6.3 k/uL (3.8-10.6)
[2020-11-04 15:01] LABS: Potassium 4.3 mmol/L (3.5-5.1)
== END | disposition home or self-care (01) ==
LOC: LABPAT 13:19
PROVIDERS: ATTEND Orthopaedic Surgery
DX: Z01.812 Encounter for preprocedural laboratory examination (principal); S62.660D Nondisplaced fracture of distal phalanx of right index finger, subsequent encounter for fracture with routine healing; X58.XXXD Exposure to other specified factors, subsequent encounter
CPT/HCPCS: 80051; 85025

== ENCOUNTER 2020-11-05 15:31 | Emergency (ER) | payer MEDICARE, OTHER ==
[2020-11-05 15:34] VITALS: BP 120/78; PULSE 107; RESP 20; TEMP 97.7
[2020-11-05] MEDS ORDERED: MORPHINE SULFATE 4 MG/ML SYRINGE IM STA (16:10)
--- NOTE | 2020-11-05 17:33 | XR ---
RESULT: HISTORY: post op pain, 1st digit TECHNIQUE: 3 views of the right index finger. COMPARISON: 11/03/2020. FINDINGS: There is interval pin fixation of the index finger distal phalangeal base fracture with improved near anatomic alignment. There is residual mild dorsal subluxation of the DIP joint. Otherwise no new abn ormality seen. IMPRESSION: Interval fixation of the index finger distal phalanx fracture with residual mild dorsal subluxation.
--- NOTE | 2020-11-05 17:39 | ED ---
Recheck HPI - General Chief Complaint: Recheck/Abnormal Lab/Rx Stated Complaint: Post op hand issue Time Seen by Provider: 11/05/20 15:39 Source: patient Mode of arrival: ambulatory Limitations: no limitations - History of Present Illness Initial Comments: Patient is a 30-year-old female presenting to the emergency department for a recheck of her finger. Patient is postop day 1 after having a pin placed in her right index finger secondary to fracture of the base of the distal phalanx. Dr. Greenwood performed her surgery. She states she was prescribed [place] for the discomfort, she took one this morning as well as ibuprofen a few hours later and the pain has been continuous. She states she leaves for her honeymoon tomorrow and cannot deal with this pain. She states she has been elevating her hand. She denies any fevers or chills. She did not hit her hand in anything, no falls. She has no further complaints at this time. - Related Data Home Medications Medication Instructions Recorded Confirmed Aspirin EC [Ecotrin Low Dose] 81 mg PO DAILY 12/15/19 05/16/20 Cetirizine HCl [Zyrtec] 10 mg PO DAILY 12/15/19 05/16/20 Cholecalciferol (Vitamin D3) 50 mcg PO DAILY 12/15/19 05/16/20 [Vitamin D3] DULoxetine HCL [Cymbalta] 120 mg PO DAILY 12/15/19 05/16/20 Folic Acid 1 mg PO DAILY 12/15/19 05/16/20 Ketorolac 30mg/Ml Injection 30 mg IM Q7D PRN 12/15/19 05/16/20 Multivitamins, Thera [Multivitamin 1 tab PO DAILY 12/15/19 05/16/20 (formulary)] Ondansetron [Zofran ODT] 4 mg PO Q12H PRN 12/15/19 05/16/20 Promethazine [Phenergan] 25 mg PO Q6H PRN 12/15/19 05/16/20 tiZANidine [Zanaflex] 4 mg PO HS 12/15/19 05/16/20 diphenhydrAMINE [Benadryl] 25 - 50 mg PO HS PRN 12/24/19 05/16/20 Naproxen Sodium 550 mg PO DAILY PRN 05/16/20 05/16/20 Fluticasone Nasal [place] [Flonase 2 spr EA NOSTRIL DAILY 11/04/20 11/04/20 Nasal [place]] Metoprolol Tartrate [Lopressor] 1 tab PO BID 11/04/20 11/04/20 Prochlorperazine [Compazine] 10 mg PO Q8H 11/04/20 11/04/20 lamoTRIgine [lamoTRIgine Odt] 50 mg PO 11/04/20 Previous Rx's Medication Instructions Recorded Cephalexin [Keflex] 500 mg PO Q6HR 7 Days #28 cap 11/03/20 HYDROcodone/APAP 5-325MG [[place] 1 tab PO Q6HR PRN #6 tab 11/04/20 5-325] cefaDROXiL [Duricef] 1 gm PO DAILY 5 Days #5 tablet 11/04/20 Allergies Allergy/AdvReac Type Severity Reaction Status Date / Time adhesive Allergy Rash/Hives Verified 11/05/20 15:34 amoxicillin Allergy Rash/Hives Verified 11/05/20 15:34 ciprofloxacin Allergy Rash/Hives Verified 11/05/20 15:34 clindamycin Allergy Rash/Hives Verified 11/05/20 15:34 diphtheria,pertussis Allergy Rash/Hives Verified 11/05/20 15:34 (acellular),te [From Boostrix Tdap] doxylamine Allergy Unknown Verified 11/05/20 15:34 ketamine Allergy Dyspnea Verified 11/05/20 15:34 latex Allergy Rash/Hives Verified 11/05/20 15:34 montelukast Allergy Confusion Verified 11/05/20 15:34 Penicillins Allergy Rash/Hives Verified 11/05/20 15:34 sertraline [From Zoloft] Allergy Rash/Hives/ Verified 11/05/20 15:34 Seizures Sulfa (Sulfonamide Allergy Rash/Hives Verified 11/05/20 15:34 Antibiotics) Review of Systems ROS Statement: Those systems with pertinent positive or pertinent negative responses have been documented in the HPI. ROS Other: All systems not noted in ROS Statement are negative. Past Medical History Past Medical History: CVA/TIA Additional Past Medical History / Comment(s): MS- Migraines, malformation type one History of Any Multi-Drug Resistant Organisms: None Reported Past Surgical History: Adenoidectomy, Hernia Repair, Orthopedic Surgery, Tonsillectomy, Tubal Ligation Additional Past Surgical History / Comment(s): cyst removal x 2, brain sx 2018 Past Psychological History: Depression, PTSD Smoking Status: Never smoker Past Alcohol Use History: None Reported Past Drug Use History: Marijuana General Exam - General Exam Comments Initial Comments: GENERAL: Patient is well-developed and well-nourished. Patient is nontoxic and in no acute distress. HEAD: Atraumatic, normocephalic. EYES: Pupils equal round and reactive to light, extraocular movements intact, sclera anicteric, conjunctiva are normal. Eyelids were unremarkable. ENT: Nares patent, oropharynx clear without exudates. Moist mucous membranes. NECK: Normal range of motion, supple without lymphadenopathy or JVD. LUNGS: Unlabored respirations. Breath sounds clear to auscultation bilaterally and equal. No wheezes rales or rhonchi. HEART: Regular rate and rhythm without murmurs, rubs or gallops. ABDOMEN: Soft, nontender, normoactive bowel sounds. No guarding, no rebound. No masses appreciated. : Deferred MUSCULOSKELETAL: Patient has a pin in her right index finger, there is an artificial nail in her nailbed, her finger feels soft, easily compressible, there is only very mild erythema, no signs of infection. Her sensation is normal. No clubbing or cyanosis. NEUROLOGICAL: Patient is alert and oriented x 3. Normal speech, normal gait. PSYCH: Normal mood, normal affect. SKIN: Warm, Dry, normal turgor, no rashes or lesions noted. Limitations: no limitations Course Vital Signs 11/05/20 15:32 Temperature 97.7 F Pulse Rate 107 H Respiratory 20 Rate Blood Pressure 120/78 O2 Sat by Pulse 99 Oximetry Medical Decision Making - Medical Decision Making Patient is a 30-year-old female here for a recheck of her right index finger. She is postop day 1 from interval pin placement. She was given [place] for pain, she's been taking as alternating with ibuprofen, her pain remains elevated, 8/10. X-rays today shows interval fixation of the index finger, distal phalanx fracture, this is stable. She was given morphine here for pain. Upon discussing the case with LAKHWINDER Frank, her x-rays and a finger looks stable today. Patient was given [place] for pain relief. He is hesitant to give her anything else secondary to her MAPS involving lots of different prescribers. I discussed this with the patient. Patient will continue to alternate with her [place] and ibuprofen for pain relief, she can also apply some ice to the area, elevation above heart level. She'll follow up with orthopedics. She is in agreement this plan of care and she is stable for discharge. Case discussed wi Dr. Ba. Disposition Clinical Impression: Postoperative pain Disposition: HOME SELF-CARE Condition: Stable Instructions (If sedation given, give patient instructions): Pain Management After Surgery (DC) Additional Instructions: Please return to the Emergency Department if symptoms worsen or any other concerns. Continue to alternate between [place] and ibuprofen for pain relief, apply ice to the area, elevation above the heart. Follow-up with orthopedics. Is patient prescribed a controlled substance at d/c from ED?: No Referrals: Nonstaff,Physician [Primary Care Provider] - 1-2 days Salas Greenwood DO [Doctor of Osteopathic Medicine] - 1-2 days Time of Disposition: 18:15
[2020-11-05] MEDS ORDERED: traMADol 50 MG STARTER PACK 3 TAB BTL PO STA (18:19)
== END 2020-11-05 18:28 | disposition home or self-care (01) ==
LOC: EC 15:31
DX: G89.18 Other acute postprocedural pain (principal); M79.644 Pain in right finger(s); F32.9 Major depressive disorder, single episode, unspecified; Z79.82 Long term (current) use of aspirin; Z86.73 Personal history of transient ischemic attack (TIA), and cerebral infarction without residual deficits; Z88.0 Allergy status to penicillin; Z88.2 Allergy status to sulfonamides; Z91.040 Latex allergy status
CPT/HCPCS: 73140; 99283; 96372; J2270

== ENCOUNTER 2021-01-21 20:25 | Emergency (ER) | payer MEDICARE, OTHER ==
[2021-01-21 21:00] VITALS: TEMP 99
[2021-01-21] MEDS: IBUPROFEN 600 MG TAB PO STA (21:10)
--- NOTE | 2021-01-21 21:10 | XR ---
EXAMINATION TYPE: XR chest 2V DATE OF EXAM: 01/21/2021 COMPARISON: NONE HISTORY: Cough TECHNIQUE: 2 views FINDINGS: Heart and mediastinum are normal. Lungs are clear. Diaphragm is normal. Bony thorax appears normal. IMPRESSION: Normal chest. Normal heart.
[2021-01-21] MEDS: PROMETHAZINE HCL 6.25 MG/5 ML CUP PO STA (21:11)
--- NOTE | 2021-01-21 21:57 | ED ---
General Adult HPI - General Chief complaint: Chest Pain Stated complaint: Chest pain,cough Time Seen by Provider: 01/21/21 20:34 Source: patient Mode of arrival: ambulatory - History of Present Illness Initial comments: 31 year-old female patient presents to the emergency department for chest pain and cough. States whenever she takes a deep breath she feels like she has to cough. States she has chest pain when she coughs. States the pain in the chest started before the coughing today. Does have history of tachycardia and chest pain. State pain is controlled with her medication. She denies any fever, chills, nasal congestion, or drainage. Denies any sputum production with the cough. States her heart rate has been elevated today around 100 bpm. Denies exposure to COVID-19. Patient denies any recent rash, shortness of breath, chest pain, abdominal pain, nausea, vomiting, diarrhea, constipation, back pain, numbness, tingling, dizziness, weakness, hematuria, dysuria, urinary urgency, urinary frequency, headache, visual changes, or any other complaints. - Related Data Home Medications Medication Instructions Recorded Confirmed Aspirin EC [Ecotrin Low Dose] 81 mg PO DAILY 12/15/19 05/16/20 Cetirizine HCl [Zyrtec] 10 mg PO DAILY 12/15/19 05/16/20 Cholecalciferol (Vitamin D3) 50 mcg PO DAILY 12/15/19 05/16/20 [Vitamin D3] DULoxetine HCL [Cymbalta] 120 mg PO DAILY 12/15/19 05/16/20 Folic Acid 1 mg PO DAILY 12/15/19 05/16/20 Ketorolac 30mg/Ml Injection 30 mg IM Q7D PRN 12/15/19 05/16/20 Multivitamins, Thera [Multivitamin 1 tab PO DAILY 12/15/19 05/16/20 (formulary)] Ondansetron [Zofran ODT] 4 mg PO Q12H PRN 12/15/19 05/16/20 Promethazine [Phenergan] 25 mg PO Q6H PRN 12/15/19 05/16/20 tiZANidine [Zanaflex] 4 mg PO HS 12/15/19 05/16/20 diphenhydrAMINE [Benadryl] 25 - 50 mg PO HS PRN 12/24/19 05/16/20 Naproxen Sodium 550 mg PO DAILY PRN 05/16/20 05/16/20 Fluticasone Nasal [place] [Flonase 2 spr EA NOSTRIL DAILY 11/04/20 11/04/20 Nasal [place]] Metoprolol Tartrate [Lopressor] 1 tab PO BID 11/04/20 11/04/20 Prochlorperazine [Compazine] 10 mg PO Q8H 11/04/20 11/04/20 lamoTRIgine [lamoTRIgine Odt] 50 mg PO 11/04/20 Previous Rx's Medication Instructions Recorded Cephalexin [Keflex] 500 mg PO Q6HR 7 Days #28 cap 11/03/20 HYDROcodone/APAP 5-325MG [[place] 1 tab PO Q6HR PRN #6 tab 11/04/20 5-325] cefaDROXiL [Duricef] 1 gm PO DAILY 5 Days #5 tablet 11/04/20 Promethazine HCl [Phenergan Syrup] 6.25 mg PO Q6H #100 ml 01/21/21 Allergies Allergy/AdvReac Type Severity Reaction Status Date / Time adhesive Allergy Rash/Hives Verified 01/21/21 20:32 amoxicillin Allergy Rash/Hives Verified 01/21/21 20:32 ciprofloxacin Allergy Rash/Hives Verified 01/21/21 20:32 clindamycin Allergy Rash/Hives Verified 01/21/21 20:32 diphtheria,pertussis Allergy Rash/Hives Verified 01/21/21 20:32 (acellular),te [From Boostrix Tdap] doxylamine Allergy Unknown Verified 01/21/21 20:32 ketamine Allergy Dyspnea Verified 01/21/21 20:32 latex Allergy Rash/Hives Verified 01/21/21 20:32 montelukast Allergy Confusion Verified 01/21/21 20:32 Penicillins Allergy Rash/Hives Verified 01/21/21 20:32 sertraline [From Zoloft] Allergy Rash/Hives/ Verified 01/21/21 20:32 Seizures Sulfa (Sulfonamide Allergy Rash/Hives Verified 01/21/21 20:32 Antibiotics) Review of Systems ROS Statement: Those systems with pertinent positive or pertinent negative responses have been documented in the HPI. ROS Other: All systems not noted in ROS Statement are negative. Past Medical History Past Medical History: CVA/TIA Additional Past Medical History / Comment(s): MS- Migraines, malformation type one History of Any Multi-Drug Resistant Organisms: None Reported Past Surgical History: Adenoidectomy, Hernia Repair, Orthopedic Surgery, Tonsillectomy, Tubal Ligation Additional Past Surgical History / Comment(s): cyst removal x 2, brain sx 2018, finger surgery november 04 Past Psychological History: Depression, PTSD Smoking Status: Never smoker Past Alcohol Use History: None Reported Past Drug Use History: Marijuana General Exam General appearance: alert, in no apparent distress, other (This is a well- developed, well-nourished adult female patient in no acute distress. Vital signs upon presentation are temperature 98.2F, pulse 102, respirations 19, blood pressure 132/80, pulse ox 100% on room air.) ENT exam: Present: normal exam, normal oropharynx, mucous membranes moist Respiratory exam: Present: normal lung sounds bilaterally. Absent: respiratory distress, wheezes, rales, rhonchi, stridor Cardiovascular Exam: Present: normal rhythm, tachycardia, normal heart sounds. Absent: systolic murmur, diastolic murmur, rubs, gallop, clicks GI/Abdominal exam: Present: soft, normal bowel sounds. Absent: distended, tenderness, guarding, rebound, rigid Extremities exam: Present: normal inspection, full ROM, normal capillary refill. Absent: tenderness, pedal edema, joint swelling, calf tenderness Neurological exam: Present: alert, oriented X3, CN II-XII intact Psychiatric exam: Present: normal affect, normal mood Skin exam: Present: warm, dry, intact, normal color. Absent: rash Course Vital Signs 01/21/21 01/21/21 01/21/21 20:29 21:00 22:12 Temperature 98.3 F 99.0 F Pulse Rate 102 H 97 Respiratory 19 18 Rate Blood Pressure 132/80 111/80 O2 Sat by Pulse 100 97 Oximetry EKG Findings - EKG Comments: EKG Findings:: EKG obtained at 2053 shows normal sinus rhythm with a ventricular rate of 89, IN interval 142, QRS duration 84, QT 360, QTC 438. No evidence of ST elevation or depression. Medical Decision Making - Medical Decision Making 31-year-old female patient presents to the emergency department today for evaluation of chest pain and cough this started this morning. Physical examination reveals clear equal lung sounds. She is having normal oxygen saturation. Does not appear to be in any respiratory distress. She does have a persistent cough during exam. Temperature mildly elevated at 99.0F. She did test negative for COVID-19. Chest x-ray is negative. EKG shows sinus rhythm with no ST elevation or depression. Patient be discharged home with prescription for Phenergan for cough. She is instructed to follow-up with the primary care physician for recheck in 1-2 days. Return parameters were discussed in detail. She verbalizes understanding and agrees with this plan. Case discussed with my attending Dr. Cárdenas. - Lab Data Lab Results 01/21/21 Range/Units 21:05 Coronavirus (PCR) Not Detected (Not Detectd) - Radiology Data Radiology results: report reviewed, image reviewed Two-view x-ray of the chest is obtained. Report was reviewed in its entirety. Impression by Dr. Gotti shows normal chest. Normal heart. Disposition Clinical Impression: Chest pain, Cough Disposition: HOME SELF-CARE Condition: Good Instructions (If sedation given, give patient instructions): Chest Pain (ED), Upper Respiratory Infection (ED), Acute Cough (ED) Additional Instructions: Follow-up with her primary care physician for recheck in 1-2 days. Take medications as directed. Return to the emergency department for any new, worsening, or concerning symptoms. Prescriptions: Promethazine HCl [Phenergan Syrup] 6.25 mg PO Q6H #100 ml Is patient prescribed a controlled substance at d/c from ED?: No Referrals: Nonstaff,Physician [Primary Care Provider] - 1-2 days Time of Disposition: 22:07
[2021-01-21 22:13] VITALS: BP 111/80; PULSE 97; RESP 18
== END 2021-01-21 22:12 | disposition home or self-care (01) ==
LOC: EC 20:25
DX: R07.9 Chest pain, unspecified (principal); R05 Cough; G43.909 Migraine, unspecified, not intractable, without status migrainosus; F32.9 Major depressive disorder, single episode, unspecified; Z86.73 Personal history of transient ischemic attack (TIA), and cerebral infarction without residual deficits; Z20.822 Contact with and (suspected) exposure to COVID-19; F12.90 Cannabis use, unspecified, uncomplicated; Z79.82 Long term (current) use of aspirin
CPT/HCPCS: 71046; 87635; 93005; 99285

== ENCOUNTER 2022-06-12 23:30 | Observation (INO) | payer MEDICARE, OTHER ==
[2022-06-12] MEDS ORDERED: Alteplase PER PHARMACY Stroke 1 EACH MISC MISCELLANE PRN (23:46)
[2022-06-12] MEDS ORDERED: ALTEPLASE BOLUS FOR STROKE 7 MG in EMPTY SYRINGE 1 SYR IV STA (23:49)
[2022-06-12 23:57] LABS: Glucose,Whole Blood 103 mg/dL (70-110)
[2022-06-13] MEDS ORDERED: ALTEPLASE 66 MG in EMPTY BAG 1 BAG IV STA (00:03)
[2022-06-13 00:13] LABS: Basophils % (A) 1 %; Eosinophils # (A) 0.1 k/uL (0-0.7); Eosinophils % (A) 1 %; HCT 40.6 % (34.0-46.0); HGB 14.1 gm/dL (11.4-16.0); Lymphocytes # (A) 2.5 k/uL (1.0-4.8); Lymphocytes % (A) 39 %; MCH 33.9 pg (25.0-35.0); MCHC 34.8 g/dL (31.0-37.0); MCV 97.6 fL (80.0-100.0); Mean Platelet Volume 7.2; Monocytes # (A) 0.3 k/uL (0-1.0); Monocytes % (A) 5 %; Neutrophils # (A) 3.4 k/uL (1.3-7.7); Neutrophils % (A) 54 %; Platelet Count 513 k/uL (150-450); RBC 4.16 m/uL (3.80-5.40); WBC 6.3 k/uL (3.8-10.6)
--- NOTE | 2022-06-13 00:14 | CT ---
EXAMINATION TYPE: CT brain wo con for TPA DATE OF EXAM: 06/13/2022 COMPARISON: None HISTORY: code stroke Weakness CT DLP: 798.8 mGycm Automated exposure control for dose reduction was used. Images obtained of the brain with no contrast. Ventricles and sulci appear normal. There is no mass effect or midline shift. No sign of intracranial hemorrhage. The calvarium is intact. Skull base is intact. There is normal aeration of the mastoid s inuses. IMPRESSION: Normal unenhanced head CT scan.
--- NOTE | 2022-06-13 00:20 | CT ---
EXAMINATION TYPE: CT angio head neck DATE OF EXAM: 06/13/2022 COMPARISON: None HISTORY: Code stroke CT DLP: 798.8 mGycm Automated exposure control for dose reduction was used. CONTRAST: Performed with IV Contrast, patient injected with 65 mL of Isovue 370. Images obtained from the aortic arch to the vertex of the brain with the IV contrast. There are Three -D postprocessed images. There is normal branching pattern of the great vessels on the aortic arch. There is arterial flow in both subclavian arteries. There is arterial flow in both vertebral arteries. There is arterial flow i n the common internal and external carotid arteries bilaterally. There is wide patency of the carotid artery bifurcations. No evidence of carotid or vertebral artery aneurysm or dissection. There is art erial flow in the vertebral basilar artery system. There is arterial flow in the anterior middle and posterior cerebral arteries bilaterally. No mass ef fect. No evidence of intracranial aneurysm or neovascularity. There is normal enhancement of the veno us sinuses. No evidence of intracranial arterial stenosis. IMPRESSION: Normal CT angiogram of the neck. Normal CT angiogram of the brain.
[2022-06-13 00:23] LABS: INR 0.9 (<1.2); Partial Thromboplastin Time 24.9 sec (22.0-30.0); Prothrombin Time 9.7 sec (9.0-12.0)
[2022-06-13 00:25] LABS: ALT 26 U/L (4-34); AST 30 U/L (14-36); African American GFR (CKD) >90 (>60 ml/min/1.73 sqM); Albumin 4.3 g/dL (3.5-5.0); Alkaline Phosphatase 53 U/L (38-126); Anion Gap 5 mmol/L; Blood Urea Nitrogen 8 mg/dL (7-17); Calcium 9.3 mg/dL (8.4-10.2); Carbon Dioxide 30 mmol/L (22-30); Chloride 106 mmol/L (98-107); Glucose 96 mg/dL (74-99); Magnesium 2.2 mg/dL (1.6-2.3); Non-African American GFR(CKD) >90 (>60 ml/min/1.73 sqM); Potassium 4.2 mmol/L (3.5-5.1); Sodium 141 mmol/L (137-145); Total Bilirubin 0.2 mg/dL (0.2-1.3); Total Protein 6.9 g/dL (6.3-8.2)
[2022-06-13] MEDS ORDERED: SODIUM CHLORIDE 0.9% 50 ML MINI-BAG IV ONE ×2 (00:46→00:50)
[2022-06-13] MEDS ORDERED: KETOROLAC 15 MG/ML 1 ML VIAL IVP STA (02:28)
[2022-06-13] MEDS ORDERED: NALOXONE 0.4 MG/ML 1 ML VIAL IV PRN (02:50)
[2022-06-13 03:03] LABS: Appearance,Urine Cloudy (Clear); Bacteria,Urine Moderate /hpf; Bilirubin,Urine Negative (Negative); Blood,Urine Negative (Negative); Color,Urine Light Yellow; Glucose,Urine (UA) Negative (Negative); Ketones,Urine Negative (Negative); Leukocyte Esterase,Urine Moderate (Negative); Nitrite,Urine Negative (Negative); PH, Urine 7.5 (5.0-8.0); Protein,Urine Negative (Negative); RBC,Urine 2 /hpf (0-5); Specific Gravity,Urine 1.039 (1.001-1.035); Squamous Epithelial Cell,Urine <1 /hpf (0-4); Urobilinogen,Urine <2.0 mg/dL (<2.0); WBC,Urine 17 /hpf (0-5)
--- NOTE | 2022-06-13 04:35 | ED ---
General Adult HPI - General Chief complaint: Neuro Symptoms/Deficit Stated complaint: Seizures, loss of speech Time Seen by Provider: 06/12/22 23:44 Source: patient Mode of arrival: ambulatory - History of Present Illness Initial comments: This is a 32-year-old female with a past medical history including MS and previous Chiari malformation decompression surgery presents emergency department for seizure-like shaking and a fascia. It is reported by the that the patient and him were watching a movie at approximate 950 when she checks it him that she stated that she was not feeling well a phasic with shaking like episodes. On evaluation, the patient stated that she was continuously shaking however was a phasic. The patient was able to communicate via tech staying and phone as well as responding to all questions appropriate. The patient did state that she does similar episode to this in the past which she was diagnosed with a complex migraine. The patient denied of any focal deficits and denied any numbness or tingling. The patient also stated that she had a new onset headache currently. The patient denied any other acute pain or complaints at this time. - Related Data Home Medications Medication Instructions Recorded Confirmed Aspirin EC [Ecotrin Low Dose] 81 mg PO DAILY 12/15/19 05/16/20 Cetirizine HCl [Zyrtec] 10 mg PO DAILY 12/15/19 05/16/20 Cholecalciferol (Vitamin D3) 50 mcg PO DAILY 12/15/19 05/16/20 [Vitamin D3] DULoxetine HCL [Cymbalta] 120 mg PO DAILY 12/15/19 05/16/20 Folic Acid 1 mg PO DAILY 12/15/19 05/16/20 Ketorolac 30mg/Ml Injection 30 mg IM Q7D PRN 12/15/19 05/16/20 Multivitamins, Thera [Multivitamin 1 tab PO DAILY 12/15/19 05/16/20 (formulary)] Ondansetron [Zofran ODT] 4 mg PO Q12H PRN 12/15/19 05/16/20 Promethazine [Phenergan] 25 mg PO Q6H PRN 12/15/19 05/16/20 tiZANidine [Zanaflex] 4 mg PO HS 12/15/19 05/16/20 diphenhydrAMINE [Benadryl] 25 - 50 mg PO HS PRN 12/24/19 05/16/20 Naproxen Sodium 550 mg PO DAILY PRN 05/16/20 05/16/20 Fluticasone Nasal [place] [Flonase 2 spr EA NOSTRIL DAILY 11/04/20 11/04/20 Nasal [place]] Metoprolol Tartrate [Lopressor] 1 tab PO BID 11/04/20 11/04/20 Prochlorperazine [Compazine] 10 mg PO Q8H 11/04/20 11/04/20 lamoTRIgine [lamoTRIgine Odt] 50 mg PO 11/04/20 Previous Rx's Medication Instructions Recorded Cephalexin [Keflex] 500 mg PO Q6HR 7 Days #28 cap 11/03/20 HYDROcodone/APAP 5-325MG [[place] 1 tab PO Q6HR PRN #6 tab 11/04/20 5-325] cefaDROXiL [Duricef] 1 gm PO DAILY 5 Days #5 tablet 11/04/20 Promethazine HCl [Phenergan Syrup] 6.25 mg PO Q6H #100 ml 01/21/21 Allergies Allergy/AdvReac Type Severity Reaction Status Date / Time adhesive Allergy Rash/Hives Verified 06/12/22 23:37 amoxicillin Allergy Rash/Hives Verified 06/12/22 23:37 ciprofloxacin Allergy Rash/Hives Verified 06/12/22 23:37 clindamycin Allergy Rash/Hives Verified 06/12/22 23:37 diphtheria,pertussis Allergy Rash/Hives Verified 06/12/22 23:37 (acellular),te [From Boostrix Tdap] doxylamine Allergy Unknown Verified 06/12/22 23:37 ketamine Allergy Dyspnea Verified 06/12/22 23:37 latex Allergy Rash/Hives Verified 06/12/22 23:37 montelukast Allergy Confusion Verified 06/12/22 23:37 Penicillins Allergy Rash/Hives Verified 06/12/22 23:37 sertraline [From Zoloft] Allergy Rash/Hives/ Verified 06/12/22 23:37 Seizures Sulfa (Sulfonamide Allergy Rash/Hives Verified 06/12/22 23:37 Antibiotics) Review of Systems ROS Statement: Those systems with pertinent positive or pertinent negative responses have been documented in the HPI. ROS Other: All systems not noted in ROS Statement are negative. Past Medical History Past Medical History: CVA/TIA Additional Past Medical History / Comment(s): MS- Migraines, malformation type one History of Any Multi-Drug Resistant Organisms: None Reported Past Surgical History: Adenoidectomy, Hernia Repair, Orthopedic Surgery, Tonsillectomy, Tubal Ligation Additional Past Surgical History / Comment(s): cyst removal x 2, brain sx 2018, finger surgery november 04 Past Psychological History: Depression, PTSD Smoking Status: Never smoker Past Alcohol Use History: None Reported Past Drug Use History: Marijuana General Exam Limitations: no limitations General appearance: alert, in no apparent distress Head exam: Present: atraumatic, normocephalic, normal inspection Eye exam: Present: normal appearance, PERRL Pupils: Present: normal accommodation ENT exam: Present: normal exam, normal oropharynx, mucous membranes moist Neck exam: Present: normal inspection, full ROM Respiratory exam: Present: normal lung sounds bilaterally Cardiovascular Exam: Present: regular rate, normal rhythm, normal heart sounds GI/Abdominal exam: Present: soft, normal bowel sounds Extremities exam: Present: normal inspection, full ROM, normal capillary refill Back exam: Present: normal inspection, full ROM Neurological exam: Present: alert, oriented X3, other (Aphasic, involuntary jerking motions of all extremities however patient was alert and oriented 3) Psychiatric exam: Present: normal affect, normal mood Skin exam: Present: warm, dry Course Vital Signs 06/12/22 06/13/22 06/13/22 23:34 00:02 02:08 Temperature 98.1 F 98.4 F Pulse Rate 102 H 90 71 Respiratory 18 18 14 Rate Blood Pressure 121/86 113/81 87/57 O2 Sat by Pulse 97 97 95 Oximetry EKG Findings - EKG Comments: EKG Findings:: An EKG was obtained and was interpreted by myself. EKG showed a rate of 96, ID interval 149, QR gnosticism 94 and QTC 375. This EKG showed a normal sinus rhythm with no ST segment elevation or depression noted. Medical Decision Making - Medical Decision Making Was pt. sent in by a medical professional or institution? @ -No Did you speak to anyone other than the patient for history? @ -Yes, patient has been Did you review nursing and triage notes? @ -Nursing triage notes were reviewed Were old charts reviewed? @ -Yes, previous admissions were reviewed Differential Diagnosis? @ -CVA, TIA, seizure EKG interpreted by me (3pts min.)? @ -Yes, see above X-rays interpreted by me (1pt min.)? @ -[none] CT interpreted by me (1pt min.)? @ -CT of the head and CT of the head and neck were obtained per stroke protocol and interpreted by myself. CT of the head was negative and CTA of the head and neck were negative. U/S interpreted by me (1pt. min.)? @ -[none] What testing was considered but not performed? (CT, X-rays, U/S, labs)? Why? @None What meds were considered but not given? Why? @ -None Did you discuss the management of the patient with other professionals? @ -Yes, neuro interventionalist, at [id number] and [id number] Did you reconcile home meds? @ -[none] Was smoking cessation discussed for >3mins.? @ -[none] Was critical care preformed (if so, how long)? @ -Yes, see above Were there social determinants of health that impacted care today? How? (Homelessness, low income, unemployed, alcoholism, drug addiction, transportation, low edu. Level, literacy, decrease access to med. care, longterm, r ehab)? @ -None Was there de-escalation of care discussed even if they declined? (Discuss DNR or withdrawal of care, Hospice)? @ -No What co-morbidities impacted this encounter? (DM, HTN, Smoking, COPD, CAD, Cancer, CVA, Hep., AIDS, mental health diagnosis, sleep apnea, morbid obesity)? @ -MS, previous Chiari malformation Was patient admitted / discharged? @ -The patient was seen and evaluated emergency department. On physical exam, due to the patient's acute episode of seizure-like activity however was ANO 4 but had a fascia, a code stroke was called and her last known normal being at 9:50 PM. The code stroke was called at 2344. The patient was taken to computed tomography scan emergently and both computed tomography scan and CT of the head and neck were negative. The neuro interventionalist, Dr. Ramirez, was contacted regarding the patient and together we decided the patient was likely not having a CVA and did not require alteplase at this time. The patient was told of these results and the risks of having alteplase however was agreed that she did not want to take the risk for this. The patient also stated that the previous episode that she has had and was admitted for was likely secondary to compress migraine. A shared decision making was performed and the patient did not receive alteplase at this time. The patient on reevaluation did have improvement of her speech and stated that she had continued headache. The patient likely was suffering from a complex migraine rather than a CVA however the patient will still be admitted for further workup and evaluation. The patient's primary care physician was being covered by Dr. Wiley and he accpeted the patient for admission at 0215. The patient was told this plan and was agreeable. The patient was minute in stable condition. Undiagnosed new problem with uncertain prognosis? @ -[none] Drug Therapy requiring intensive monitoring for toxicity (Heparin, Nitro, Insulin, Cardizem)? @ -[none] Were any procedures done? @ -[none] Diagnosis/symptom? @ -Complex migraine with neuro symptoms Acute, or Chronic, or Acute on Chronic? @ -Acute Uncomplicated (without systemic symptoms) or Complicated (systemic symptoms)? @ -Complicated Side effects of treatment? @ -[none] Exacerbation, Progression, or Severe Exacerbation] @ -[no] Poses a threat to life or bodily function? @ -[no] - Lab Data Result diagrams: 06/12/22 23:56 06/12/22 23:56 Lab Results 06/12/22 06/12/22 06/12/22 Range/Units 23:55 23:56 23:56 WBC 6.3 (3.8-10.6) k/uL RBC 4.16 (3.80-5.40) m/uL Hgb 14.1 (11.4-16.0) gm/dL Hct 40.6 (34.0-46.0) % MCV 97.6 (80.0-100.0) fL MCH 33.9 (25.0-35.0) pg MCHC 34.8 (31.0-37.0) g/dL RDW 13.0 (11.5-15.5) % Plt Count 513 H (150-450) k/uL MPV 7.2 Neutrophils % 54 % Lymphocytes % 39 % Monocytes % 5 % Eosinophils % 1 % Basophils % 1 % Neutrophils # 3.4 (1.3-7.7) k/uL Lymphocytes # 2.5 (1.0-4.8) k/uL Monocytes # 0.3 (0-1.0) k/uL Eosinophils # 0.1 (0-0.7) k/uL Basophils # 0.0 (0-0.2) k/uL PT 9.7 (9.0-12.0) sec INR 0.9 (<1.2) APTT 24.9 (22.0-30.0) sec Sodium (137-145) mmol/L Potassium (3.5-5.1) mmol/L Chloride (98-107) mmol/L Carbon Dioxide (22-30) mmol/L Anion Gap mmol/L BUN (7-17) mg/dL Creatinine (0.52-1.04) mg/dL Est GFR (CKD-EPI)AfAm (>60 ml/min/1.73 sqM) Est GFR (CKD-EPI)NonAf (>60 ml/min/1.73 sqM) Glucose (74-99) mg/dL POC Glucose (mg/dL) (70-110) mg/dL POC Glu Linen Manager ID Plasma Lactic Acid Krish 0.9 (0.7-2.0) mmol/L Calcium (8.4-10.2) mg/dL Magnesium (1.6-2.3) mg/dL Total Bilirubin (0.2-1.3) mg/dL AST (14-36) U/L ALT (4-34) U/L Alkaline Phosphatase (38-126) U/L Troponin I (0.000-0.034) ng/mL Total Protein (6.3-8.2) g/dL Albumin (3.5-5.0) g/dL Urine Color Urine Appearance (Clear) Urine pH (5.0-8.0) Ur Specific [place] (1.001-1.035) Urine Protein (Negative) Urine Glucose (UA) (Negative) Urine Ketones (Negative) Urine Blood (Negative) Urine Nitrite (Negative) Urine Bilirubin (Negative) Urine Urobilinogen (<2.0) mg/dL Ur Leukocyte Esterase (Negative) Urine RBC (0-5) /hpf Urine WBC (0-5) /hpf Ur Squamous Epith Cells (0-4) /hpf Urine Bacteria (None) /hpf 12/06/12/22 06/12/22 Range/Units 23:56 23:56 23:56 WBC (3.8-10.6) k/uL RBC (3.80-5.40) m/uL Hgb (11.4-16.0) gm/dL Hct (34.0-46.0) % MCV (80.0-100.0) fL MCH (25.0-35.0) pg MCHC (31.0-37.0) g/dL RDW (11.5-15.5) % Plt Count (150-450) k/uL MPV Neutrophils % % Lymphocytes % % Monocytes % % Eosinophils % % Basophils % % Neutrophils # (1.3-7.7) k/uL Lymphocytes # (1.0-4.8) k/uL Monocytes # (0-1.0) k/uL Eosinophils # (0-0.7) k/uL Basophils # (0-0.2) k/uL PT (9.0-12.0) sec INR (<1.2) APTT (22.0-30.0) sec Sodium 141 (137-145) mmol/L Potassium 4.2 (3.5-5.1) mmol/L Chloride 106 (98-107) mmol/L Carbon Dioxide 30 (22-30) mmol/L Anion Gap 5 mmol/L BUN 8 (7-17) mg/dL Creatinine 0.61 (0.52-1.04) mg/dL Est GFR (CKD-EPI)AfAm >90 (>60 ml/min/1.73 sqM) Est GFR (CKD-EPI)NonAf >90 (>60 ml/min/1.73 sqM) Glucose 96 (74-99) mg/dL POC Glucose (mg/dL) 103 (70-110) mg/dL POC Glu Linen Manager ID Wendy Arellano Plasma Lactic Acid Krish (0.7-2.0) mmol/L Calcium 9.3 (8.4-10.2) mg/dL Magnesium 2.2 (1.6-2.3) mg/dL Total Bilirubin 0.2 (0.2-1.3) mg/dL AST 30 (14-36) U/L ALT 26 (4-34) U/L Alkaline Phosphatase 53 (38-126) U/L Troponin I <0.012 (0.000-0.034) ng/mL Total Protein 6.9 (6.3-8.2) g/dL Albumin 4.3 (3.5-5.0) g/dL Urine Color Urine Appearance (Clear) Urine pH (5.0-8.0) Ur Specific [place] (1.001-1.035) Urine Protein (Negative) Urine Glucose (UA) (Negative) Urine Ketones (Negative) Urine Blood (Negative) Urine Nitrite (Negative) Urine Bilirubin (Negative) Urine Urobilinogen (<2.0) mg/dL Ur Leukocyte Esterase (Negative) Urine RBC (0-5) /hpf Urine WBC (0-5) /hpf Ur Squamous Epith Cells (0-4) /hpf Urine Bacteria (None) /hpf 06/13/22 Range/Units 02:39 WBC (3.8-10.6) k/uL RBC (3.80-5.40) m/uL Hgb (11.4-16.0) gm/dL Hct (34.0-46.0) % MCV (80.0-100.0) fL MCH (25.0-35.0) pg MCHC (31.0-37.0) g/dL RDW (11.5-15.5) % Plt Count (150-450) k/uL MPV Neutrophils % % Lymphocytes % % Monocytes % % Eosinophils % % Basophils % % Neutrophils # (1.3-7.7) k/uL Lymphocytes # (1.0-4.8) k/uL Monocytes # (0-1.0) k/uL Eosinophils # (0-0.7) k/uL Basophils # (0-0.2) k/uL PT (9.0-12.0) sec INR (<1.2) APTT (22.0-30.0) sec Sodium (137-145) mmol/L Potassium (3.5-5.1) mmol/L Chloride (98-107) mmol/L Carbon Dioxide (22-30) mmol/L Anion Gap mmol/L BUN (7-17) mg/dL Creatinine (0.52-1.04) mg/dL Est GFR (CKD-EPI)AfAm (>60 ml/min/1.73 sqM) Est GFR (CKD-EPI)NonAf (>60 ml/min/1.73 sqM) Glucose (74-99) mg/dL POC Glucose (mg/dL) (70-110) mg/dL POC Glu Linen Manager ID Plasma Lactic Acid Krish (0.7-2.0) mmol/L Calcium (8.4-10.2) mg/dL Magnesium (1.6-2.3) mg/dL Total Bilirubin (0.2-1.3) mg/dL AST (14-36) U/L ALT (4-34) U/L Alkaline Phosphatase (38-126) U/L Troponin I (0.000-0.034) ng/mL Total Protein (6.3-8.2) g/dL Albumin (3.5-5.0) g/dL Urine Color Light Yellow Urine Appearance Cloudy H (Clear) Urine pH 7.5 (5.0-8.0) Ur Specific [place] 1.039 H (1.001-1.035) Urine Protein Negative (Negative) Urine Glucose (UA) Negative (Negative) Urine Ketones Negative (Negative) Urine Blood Negative (Negative) Urine Nitrite Negative (Negative) Urine Bilirubin Negative (Negative) Urine Urobilinogen <2.0 (<2.0) mg/dL Ur Leukocyte Esterase Moderate H (Negative) Urine RBC 2 (0-5) /hpf Urine WBC 17 H (0-5) /hpf Ur Squamous Epith Cells <1 (0-4) /hpf Urine Bacteria Moderate H (None) /hpf Critical Care Time Critical Care Time: Yes Total Critical Care Time: 33 Disposition Clinical Impression: Complicated migraine Disposition: ADMITTED IP TO THIS [facility] Condition: Stable Is patient prescribed a controlled substance at d/c from ED?: No Time of Disposition: 02:15 Decision to Admit Reason: Admit from EC Decision Date: 06/13/22 Decision Time: 02:15
[2022-06-13] MEDS ORDERED: NAPROXEN 250 MG TAB PO PRN (05:20)
--- NOTE | 2022-06-13 05:58 | P.HPIM ---
History of Present Illness H&P Date: 06/13/22 Chief Complaint: headache, aphasia 32 year old female with migraine , MS , chiari malformation. s/p decompression surgery . patient coming in after experiencing one of her episodes of severe migraine headache, this was associated with aphasia , and seizure like activity, without any loss of bladder or bowel control , and no tongue biting. patient was with her relaxing in the late evening when this happened, he notified EMS and rushed her to the hospital for evaluation , CODE stroke was activated, however upon further evaluation in the ED, no tpa was given, CT imaging of the brain no acute pathology . patient symptoms at time of my evaluation has completely resolved. patient does have history of sort of similar episodes, she has a diagnosis of MS and complex migraines. she reports having similar episode 6 months ago with severe headache, diffuse , associated with aphasia , but did not experience shakiness (seizure like activity ) she otherwise denies any fever, chills, head injury, denies any residual focal neuro deficits except for her chronic hand numbness bilaterally. blood work and imaging both unremarkable for acute pathology Review of Systems Pertinent positives as noted in HPI. All other systems were reviewed and are negative Past Medical History Past Medical History: CVA/TIA Additional Past Medical History / Comment(s): MS- Migraines, malformation type one History of Any Multi-Drug Resistant Organisms: None Reported Past Surgical History: Adenoidectomy, Hernia Repair, Orthopedic Surgery, Tonsillectomy, Tubal Ligation Additional Past Surgical History / Comment(s): cyst removal x 2, brain sx 2018, finger surgery november 04 Past Psychological History: Depression, PTSD Smoking Status: Never smoker Past Alcohol Use History: None Reported Past Drug Use History: Marijuana - Past Family History familiy Additional Family Medical History / Comment(s): denies seizures Medications and Allergies Home Medications Medication Instructions Recorded Confirmed Type Aspirin EC [Ecotrin Low Dose] 81 mg PO DAILY 12/15/19 05/16/20 History Cetirizine HCl [Zyrtec] 10 mg PO DAILY 12/15/19 05/16/20 History Cholecalciferol (Vitamin D3) 50 mcg PO DAILY 12/15/19 05/16/20 History [Vitamin D3] DULoxetine HCL [Cymbalta] 120 mg PO DAILY 12/15/19 05/16/20 History Folic Acid 1 mg PO DAILY 12/15/19 05/16/20 History Ketorolac 30mg/Ml Injection 30 mg IM Q7D PRN 12/15/19 05/16/20 History Multivitamins, Thera [Multivitamin 1 tab PO DAILY 12/15/19 05/16/20 History (formulary)] Ondansetron [Zofran ODT] 4 mg PO Q12H PRN 12/15/19 05/16/20 History Promethazine [Phenergan] 25 mg PO Q6H PRN 12/15/19 05/16/20 History tiZANidine [Zanaflex] 4 mg PO HS 12/15/19 05/16/20 History diphenhydrAMINE [Benadryl] 25 - 50 mg PO HS PRN 12/24/19 05/16/20 History Naproxen Sodium 550 mg PO DAILY PRN 05/16/20 05/16/20 History Cephalexin [Keflex] 500 mg PO Q6HR 7 Days #28 cap 11/03/20 Rx Fluticasone Nasal [place] [Flonase 2 spr EA NOSTRIL DAILY 11/04/20 11/04/20 History Nasal [place]] HYDROcodone/APAP 5-325MG [[place] 1 tab PO Q6HR PRN #6 tab 11/04/20 Rx 5-325] Metoprolol Tartrate [Lopressor] 1 tab PO BID 11/04/20 11/04/20 History Prochlorperazine [Compazine] 10 mg PO Q8H 11/04/20 11/04/20 History cefaDROXiL [Duricef] 1 gm PO DAILY 5 Days #5 tablet 11/04/20 Rx lamoTRIgine [lamoTRIgine Odt] 50 mg PO 11/04/20 History Promethazine HCl [Phenergan Syrup] 6.25 mg PO Q6H #100 ml 01/21/21 Rx Allergies Allergy/AdvReac Type Severity Reaction Status Date / Time adhesive Allergy Rash/Hives Verified 06/12/22 23:37 amoxicillin Allergy Rash/Hives Verified 06/12/22 23:37 ciprofloxacin Allergy Rash/Hives Verified 06/12/22 23:37 clindamycin Allergy Rash/Hives Verified 06/12/22 23:37 diphtheria,pertussis Allergy Rash/Hives Verified 06/12/22 23:37 (acellular),te [From Boostrix Tdap] doxylamine Allergy Unknown Verified 06/12/22 23:37 ketamine Allergy Dyspnea Verified 06/12/22 23:37 latex Allergy Rash/Hives Verified 06/12/22 23:37 montelukast Allergy Confusion Verified 06/12/22 23:37 Penicillins Allergy Rash/Hives Verified 06/12/22 23:37 sertraline [From Zoloft] Allergy Rash/Hives/ Verified 06/12/22 23:37 Seizures Sulfa (Sulfonamide Allergy Rash/Hives Verified 06/12/22 23:37 Antibiotics) Physical Exam Vitals: Vital Signs Temp Pulse Resp BP Pulse Ox 06/13/22 02:08 71 14 87/57 95 06/13/22 00:02 98.4 F 90 18 113/81 97 06/12/22 23:34 98.1 F 102 H 18 121/86 97 Intake and Output 06/12/22 06/12/22 06/13/22 14:59 22:59 06:59 Other: Weight 81.647 kg Constitutional: No acute distress, conversant, cooperative Eyes: Anicteric sclerae, moist conjunctiva, Pupils equal round reactive to light ENMT: NC/AT Oropharynx clear, no erythema, or exudates Neck: Supple, no masses, or JVD No carotid bruits No thyromegaly Lungs: Clear to auscultation Clear to percussion Normal respiratory effort, no accessory muscle use Cardiovascular: Heart regular in rate and rhythm, No murmurs, gallops, or rubs No peripheral edema Abdominal: Soft Nontender, no guarding, rebound or rigidity Abdomen moving with respiration Normoactive bowel sounds No hepatomegaly, No splenomegaly No palpable mass No abdominal wall hernia noted Skin: Normal temperature, tone, texture, turgor Extremities: No digital cyanosis No clubbing Pedal pulses intact and symmetrical Radial pulses intact and symmetrical No calf tenderness Psychiatric: Alert and oriented to person, place and time Appropriate affect fair judgement Neuro Muscles Strength 5/5 in all 4 extremities Sensation to light touch grossly present throughout Cranial nerves II-XII grossly intact Lymphatics: no palpable cervical or supraclavicular lymph nodes Results CBC & Chem 7: 06/12/22 23:56 06/12/22 23:56 Labs: Abnormal Lab Results - Last 24 Hours (Table) 06/12/22 Range/Units 23:56 Plt Count 513 H (150-450) k/uL Assessment and Plan Assessment: complex migraines MS pseudoseizure plan pain control neuro checks neurology consultation CT imaging of the brain and CTA head and neck , no acute pathology fall precautions resume home meds monitor vital signs IVF hydration with normal saline full code DVT PPX mechanical
[2022-06-13] MEDS: METOPROLOL TARTRATE 50 MG TAB PO SCH ×2 (09:05→20:30)
[2022-06-13] MEDS: ASPIRIN 81 MG PO SCH (09:05)
[2022-06-13] MEDS: DULoxetine HCL 60 MG CAPSULE.DR PO SCH (09:09)
[2022-06-13] MEDS: HYDROcodone/APAP 5-325MG 1 EACH TAB PO PRN ×3 (09:10→20:30)
--- NOTE | 2022-06-13 13:54 | P.PN ---
Progress Note - Text Progress Note Date: 06/13/22 Hospitalist Interval Note Patient seen and examined at bedside. Vital signs reviewed General: non toxic, no distress, appears at stated age Derm: warm, dry Head: atraumatic, normocephalic, symmetric Eyes: EOMI, no lid lag, anicteric sclera Mouth: no lip lesion, mucus membranes moist Cardiovascular: S1S2 reg, no murmur, positive posterior tibial pulse bilateral, Lungs: CTA bilateral, no rhonchi, no rales , no accessory muscle use Abdominal: soft, nontender to palpation, no guarding, no appreciable organomegaly Ext: no gross muscle atrophy, no edema, no contractures Neuro: CN II-XI grossly intact, no focal neuro deficits Psych: Alert, oriented, appropriate affect Assessment/Plan: Complex migraines History of MS Pseudoseizures - Neurology consultation - Restarted Lamictal and metoprolol and trazodone -Patient is currently asymptomatic This is an update note for patient. There is no charge associated with this note.
--- NOTE | 2022-06-13 14:20 | P.CNNES ---
History of Present Illness Consult date: 06/13/22 Requesting physician: Buck De Jesus Reason for Consult: Complex migraine History of Present Illness: Patient is a 32-year-old right-handed female, with history of migraine headaches came to the hospital yesterday at 11:30 PM for acute onset of transient headache followed by aphasia. Patient states that at 10 PM yesterday she was done watching a TV show, sitting when she had a sudden onset of sharp pain in her head pointing to the left temporal region, which she rated 9/10. It was like a bolt of lightening lasting for 20 seconds and then went away. However at that time she noticed some seizure-like activity involving both sides and was not able to talk. When she verbalized, couldn't make words out and her whole body was shaking. Patient states that the seizure-like activity resolved in 30 minutes, but the speech difficulty persisted therefore she came to the ER. Patient's symptoms started improving. Patient states her speech difficulty lasted for about 3-4 hours and then went away. She denied any focal numbness, tingling, problem with balance, double vision, loss of vision. Vital signs arrival blood pressure 121/86 pulse rate 102, temperature 98.1. Blood test shows normal CBC, PT/PTT, normal CMP, troponin negative, UA shows moderate leukocyte esterase and [address] head reported as normal. On my review, there is evidence of a wedge shape area of hypodensity involving the left posterior temporal region. CTA of head and neck also reported as normal. EKG shows sinus rhythm. At present she has no symptoms except for being tired from yesterday. Also complaining of headache and involving the back of head to the neck rating 8/10. She also complains of numbness of the fingertips of right hand since February 2022. He is Patient states that she has been trying in vitro fertilization. She started Aygastin BCP in mid of March 2022. About 7-10 days after starting this medication, she had a complex migraine, went to [facility] in [place], where she underwent testing and was diagnosed with complex migraine. She stopped Aygastin after 6 weeks of taking it. She resumed this medication on 05/31/2022 along with some other hormones for retrieving the eggs. However this time the dose of Aygastin was double as compared to the dose was time she took in March. She also was given Cabergoline for ovarian hyperstimulation for 6 days from 05/31/2022. 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 Her left-sided weakness lasted for 7 months and almost resolved. Now, when she gets very tired, her left-sided of the face droops slightly. Otherwise she has no deficits. She also claims that she had history of seizures in her first year of age. She was given phenobarbital for a year and then taken off. No further recurrence of seizures. Patient follows up with a headache specialist in [facility]. She used to get migraines about 20 times a month. After she started migraine medications, the frequency has decreased down to 6-8 per month. She gets all vascular features and the migraines last for about 12-24 hours. She sometimes notices dots in her vision as an aura but never had any speech difficulty except for the one in March 2022. Patient claims she has history of 5 TBI is, 3 out of 5 but associated with some loss of consciousness. The first one was in a prepleater accident. She is on morphine for muscle spasms in the shoulders and neck. Patient states that her neurologist is also diagnosed her with multiple sclerosis in August 2019. She is not on any disease modifying medication. Patient denies any tobacco use, drinks alcohol socially. Denies any hypertension diabetes or marijuana use. Patient's medications include Zanaflex 4-8 mg at bedtime when necessary, Cymbalta 120 mg daily, trazodone 50 g at bedtime, Lamictal 100 mg twice a day, Aygestin 10 mg daily, morphine sulfate 30 mg daily when necessary, Lamictal 50 mg twice a day, metoprolol 100 g daily and Cabergoline 0.5 mg daily. Patient apparently was evaluated in the ER by ED staff. Stroke code was activated. ED staff discuss case with stroke neurologist Dr. Ramirez, and patient wasn't considered not a candidate for TPA. Complex migraine was suspected, as she had similar episode in the past. Patient was given Toradol and [place] also aspirin 81 mg. Review of Systems Constitutional: Denies chills, Denies fever Eyes: denies blurred vision, denies decreased vision, denies pain Ears: deny: decreased hearing Ears, nose, mouth and throat: Reports headache, Denies sore throat Cardiovascular: Denies chest pain, Denies shortness of breath Respiratory: Denies cough Gastrointestinal: Denies abdominal pain, Denies diarrhea, Denies nausea, Denies vomiting Genitourinary: Denies dysuria, Denies hematuria Musculoskeletal: Reports muscle cramps, Reports myalgias, Reports neck pain Integumentary: Denies pruritus, Denies rash Neurological: Reports as per HPI Past Medical History Past Medical History: CVA/TIA Additional Past Medical History / Comment(s): MS- Migraines, malformation type one History of Any Multi-Drug Resistant Organisms: None Reported Past Surgical History: Adenoidectomy, Hernia Repair, Orthopedic Surgery, Tonsillectomy, Tubal Ligation Additional Past Surgical History / Comment(s): cyst removal x 2, brain sx 2017, finger surgery november 04 Past Psychological History: Depression, PTSD Smoking Status: Never smoker Past Alcohol Use History: None Reported Past Drug Use History: Marijuana - Past Family History familiy Additional Family Medical History / Comment(s): denies seizures Medications and Allergies Home Medications Medication Instructions Recorded Confirmed Type DULoxetine HCL [Cymbalta] 120 mg PO DAILY 12/15/19 06/13/22 History tiZANidine [Zanaflex] 4 - 8 mg PO HS PRN 12/15/19 06/13/22 History Aygestin 10 mg PO DAILY 06/13/22 06/13/22 History Cabergoline 0.5 mg PO DAILY 06/13/22 06/13/22 History Metoprolol Succinate (ER) [Toprol 100 mg PO DAILY 06/13/22 06/13/22 History Xl] Morphine Sulfate Ir [MSIR] 30 mg PO DAILY PRN 06/13/22 06/13/22 History lamoTRIgine [LaMICtal] 50 mg PO BID 06/13/22 06/13/22 History lamoTRIgine [LaMICtal] 100 mg PO BID 06/13/22 06/13/22 History traZODone HCL [Desyrel] 50 mg PO HS 06/13/22 06/13/22 History Allergies Allergy/AdvReac Type Severity Reaction Status Date / Time adhesive Allergy Rash/Hives Verified 06/13/22 09:32 amoxicillin Allergy Rash/Hives Verified 06/13/22 09:32 ciprofloxacin Allergy Rash/Hives Verified 06/13/22 09:32 clindamycin Allergy Rash/Hives Verified 06/13/22 09:32 diphtheria,pertussis Allergy Rash/Hives Verified 06/13/22 09:32 (acellular),te [From Boostrix Tdap] doxylamine Allergy Unknown Verified 06/13/22 09:32 ketamine Allergy Dyspnea Verified 06/13/22 09:32 latex Allergy Rash/Hives Verified 06/13/22 09:32 montelukast Allergy Confusion Verified 06/13/22 09:32 Penicillins Allergy Rash/Hives Verified 06/13/22 09:32 sertraline [From Zoloft] Allergy Rash/Hives/ Verified 06/13/22 09:32 Seizures Sulfa (Sulfonamide Allergy Rash/Hives Verified 06/13/22 09:32 Antibiotics) Physical Examination - Vital Signs Vital Signs: Vital Signs Temp Pulse Resp BP Pulse Ox 06/13/22 09:07 98 F 78 18 94/66 98 06/13/22 07:30 98.2 F 71 18 99/61 97 06/13/22 05:00 70 16 94/66 96 06/13/22 02:08 71 14 87/57 95 06/13/22 00:02 98.4 F 90 18 113/81 97 06/12/22 23:34 98.1 F 102 H 18 121/86 97 Intake and Output 06/12/22 06/13/22 06/13/22 22:59 06:59 14:59 Other: Weight 81.647 kg Patient is a young female, in no acute distress. Patient is alert awake oriented to time place and person. Speech and language functions are normal. Patient can name and repeat very well. No aphasia or dysarthria. Attention, concentration and fund of knowledge is adequate. On cranial nerve examination, pupils are equal, round and reacting to light, visual tran are full on confrontation, with no neglect on double simultaneous stimulation. Extraocular muscles are intact with no nystagmus. Face is symmetric, tongue protrudes to the midline. Palatal elevation and sensation normal, hearing and shoulder shrug normal, facial sensation normal. On muscle strength testing, there is no pronator drift and the strength is normal in arms and legs distally and proximally. Deep tendon reflexes are symmetric 2 at the biceps, 1+ brachioradialis, 2 at the knees, 2 ankles and plantars downgoing bilaterally. Sensory to touch is decreased in the right upper extremity as compared to the left, but is equal in the face and lower extremities bilaterally. Cerebellar function showed no ataxia for [id number] testing. No dysdiadochokinesia. No ataxia for [id number] testing on either side. Tone and bulk of muscles normal. Gait deferred.. On general examination, there is no carotid bruit or murmur, S1-S2 audible. Chest is clear on consultation. Abdomen is soft nontender. No organomegaly, bowel sounds present. Peripheral pulses are present. No edema. Results - Laboratory Findings CBC and BMP: 06/12/22 23:56 06/12/22 23:56 Abnormal Lab Findings: Abnormal Labs 06/12/22 06/13/22 23:56 02:39 Plt Count 513 H Urine Appearance Cloudy H Ur Specific [place] 1.039 H Ur Leukocyte Esterase Moderate H Urine WBC 17 H Urine Bacteria Moderate H Assessment and Plan Assessment: * 32-year-old female with history of migraines, developed a brief headache, followed by seizure-like activity, and aphasia. The seizure-like activity resolved in 30 minutes, but the aphasia resolved in 3-4 hours. At present her NIH stroke scale is 0. Patient did not receive TPA. * Patient had similar episode of possible complex migraine diagnosed in March 2022. Patient was on Aygastin (norethindrone) in March 2022 (taken for 6 weeks), and also was started on this medication again on 05/31/2022, therefore complex migraine may be related to hormonal replacement therapy. Rule out CVA. * History of migraines without without aura. Patient's aura usually consisted of spots in the vision, never had speech difficulty with it. * Abnormal UA, rule out UTI. * History of seizures, treated with phenobarbital for one year * Reported history of MS Plan: * MRI brain evaluate for an acute stroke * EEG rule out epileptiform activity. Patient is already on Lamictal 150 mg twice a day for "migraines". * Agree with starting aspirin 81 mg daily. * Suggest stopping hormones, as hormones can be associated with complex migraines and strokes. * Patient may need 2-D echo with bubble study. * Lipid panel, hemoglobin A1c * Telemetry monitoring. * Neurology will follow. Thank you for the consult. Time with Patient: Greater than 30
[2022-06-13 20:09] LABS: Glucose,Whole Blood 105 mg/dL (70-110)
[2022-06-13] MEDS: lamoTRIgine 100 MG TAB PO SCH (20:29)
[2022-06-13] MEDS: lamoTRIgine 25 MG TAB PO SCH (20:29)
[2022-06-13] MEDS: traZODone HCL 50 MG TAB PO SCH (20:30)
--- NOTE | 2022-06-14 00:54 | PCN ---
PROCEDURE NOTE PREAMBLE: This is a 32-year-old female, who has presented with possible stroke/TIA versus complex migraine. The patient also has some seizure-like activity. This study is performed to evaluate for any epileptiform activity. CURRENT MEDICATIONS: Zanaflex 4-8 mg at bedtime when necessary, Cymbalta 120 mg daily, trazodone 50 Mg at bedtime, Lamictal 150 mg twice a day, Aygestin 10 mg daily, morphine sulfate 30 mg daily when necessary, metoprolol 100 g daily and Cabergoline 0.5 mg daily. EEG FINDINGS: This is a 21-channel routine EEG recorded with video component, utilizing 10/20 international system with referential and bipolar montages. Background consists of well developed, slightly disorganized moderate voltage activity in 9 to 10 hertz alpha, intermixed with some 6-7 Hz theta activity in bihemispheric region. Background is posterior dominant and reactive to eye opening and closing. Some intermittent dysrhythmic bitemporal theta slowing was seen. Photic driving response was not seen. Different stages of sleep were not seen. No definitive focal or generalized epileptiform activity were seen. Frequent myogenic artifact was seen during the study. EKG channel showed no obvious arrhythmia. IMPRESSION: This is mildly abnormal EEG due to mild slowing and disorganized background, suggestive of mild encephalopathy. No definitive epileptiform activity was seen. If your suspicion for seizures is high, suggest prolonged, sleep-deprived EEG. MMISELA / KIMN: [id number] / MTDD
[2022-06-14] MEDS: HYDROcodone/APAP 5-325MG 1 EACH TAB PO PRN ×3 (04:23→16:41)
[2022-06-14] MEDS: lamoTRIgine 100 MG TAB PO SCH ×2 (09:13→20:16)
[2022-06-14] MEDS: lamoTRIgine 25 MG TAB PO SCH ×2 (09:13→20:16)
[2022-06-14] MEDS: DULoxetine HCL 60 MG CAPSULE.DR PO SCH (09:13)
[2022-06-14] MEDS: METOPROLOL SUCCINATE (ER) 100 MG TAB.ER.24H PO SCH (09:13)
[2022-06-14] MEDS: ASPIRIN 81 MG PO SCH (09:13)
[2022-06-14] MEDS ORDERED: LORazepam 2 MG/ML INJ IV ONE (13:45)
--- NOTE | 2022-06-14 14:54 | MR ---
EXAMINATION TYPE: MR brain wo con DATE OF EXAM: 06/14/2022 COMPARISON: 06/12/2022 CT HISTORY: Stroke/TIA vs seizure vs migraine CONTRAST: Performed utilizing 0 mL intravenous Gadavist gadolinium contrast. TECHNIQUE: Multiplanar, multiecho imaging on a 3.0 Casi magnet is performed through the brain. Stud y is performed within 24 hours of arrival to the hospital. The craniovertebral junction is normal. The pituitary is normal. Diffusion-weighted imaging is performed. No abnormal hyperintensity is present to suggest an acute i ntracranial infarct or acute ischemic change. In the right occipital lobe white matter no suspicious hyperintensity is present on diffusion. Cerebellopontine angles appear normal. Normal vascular flow voids are present. There is a 1 cm extra-axial fluid like collection within the white matter right occipital lobe. Sershanta s 401 image 21. This measures 0.8 cm. Additional evaluation with contrast is recommended. Old Lacuna r infarct could be considered. White matter change such as from migraine headache could be considered . Other etiologies would include multiple sclerosis, Lyme disease, vasculitis. Ventricles and sulci are appropriate for the patient age. IMPRESSIONS: 1. There is a 0.8 cm a fluid type signal within the deep white matter right occipital lobe of uncerta in etiology. This appears old. Additional workup with contrast MRI is recommended.
[2022-06-14 18:55] LABS: Chol/HDL Ratio 4.89 Ratio; LDL Cholesterol,Calculated 129.5 mg/dL (0.0-131.0)
[2022-06-14] MEDS ORDERED: tiZANidine 4 MG TAB PO PRN (20:09)
[2022-06-14] MEDS: traZODone HCL 50 MG TAB PO SCH (20:16)
[2022-06-15] MEDS: HYDROcodone/APAP 5-325MG 1 EACH TAB PO PRN ×2 (03:42→11:05)
--- NOTE | 2022-06-15 08:03 | P.PN ---
Subjective Progress Note Date: 06/14/22 Principal diagnosis: TIA No new symptoms according to patient, no slurred speech, no focal weakness or numbness. Objective - Vital Signs Vital signs: Vital Signs Temp 98.1 F 06/15/22 03:39 Pulse 69 06/15/22 03:39 Resp 16 06/15/22 03:39 BP 120/75 06/15/22 03:39 Pulse Ox 99 06/15/22 03:39 FiO2 Intake & Output 06/14/22 06/15/22 06/15/22 18:59 06:59 18:59 Intake Total 236 Balance 236 Intake: Oral 236 Other: Voiding Method Toilet # Voids 4 2 # Bowel Movements 2 - Exam Constitutional: No acute distress, conversant, pleasant Eyes:Anicteric sclerae, moist conjunctiva, no lid-lag, PERRLA, ENMT: Oropharynx clear, no erythema, exudates Neck: Supple, FROM, no masses, or JVD, No carotid bruits, No thyromegaly Lungs: Clear to auscultation, Clear to percussion, Normal respiratory effort, no accessory muscle use Cardiovascular: Heart regular in rate and rhythm, No murmurs, gallops, or rubs, No peripheral edema Abdominal: Soft, Nontender, no guarding, rebound or rigidity, Normoactive bowel sounds, No hepatomegaly, No splenomegaly, No palpable mass Skin: Normal temperature, tone, texture, turgor, no induration, No subcutaneous nodules, No rash, lesions, No ulcers Extremities: No digital cyanosis, No clubbing, Pedal pulses intact and symmetrical, Radial pulses intact and symmetrical, No calf tenderness Psychiatric: Alert and oriented to person, place and time, appropriate affect, intact judgement Neuro: Muscles Strength 5/5 in all 4 extremities, Sensation to light touch grossly present throughout, Cranial nerves II-XII grossly intact, no focal sensory deficits - Labs CBC & Chem 7: 06/12/22 23:56 06/12/22 23:56 Labs: Abnormal Lab Results - Last 24 Hours (Table) 06/14/22 Range/Units 10:32 Triglycerides 172.00 H (0.00-149.00) mg/dL Cholesterol 206.00 H (0.00-200.00) mg/dL Microbiology - Last 24 Hours (Table) 06/13/22 02:39 Urine Culture - Preliminary Urine,Voided Gram Neg Bacilli Assessment and Plan Plan: complex migraines TIA MS pseudoseizure plan pain control Seen by neurology, work up with echo, MRI brain, EEG ordered. CT imaging of the brain and CTA head and neck , no acute pathology Will need to avoid hormones if true stroke. She is currently in IVF process. resume home meds monitor vital signs IVF hydration with normal saline full code DVT PPX mechanical
[2022-06-15] MEDS: ASPIRIN 81 MG PO SCH (08:59)
[2022-06-15] MEDS: DULoxetine HCL 60 MG CAPSULE.DR PO SCH (08:59)
[2022-06-15] MEDS: METOPROLOL SUCCINATE (ER) 100 MG TAB.ER.24H PO SCH (08:59)
[2022-06-15] MEDS: lamoTRIgine 100 MG TAB PO SCH (09:00)
[2022-06-15] MEDS: lamoTRIgine 25 MG TAB PO SCH (09:00)
--- NOTE | 2022-06-15 11:16 | P.DS ---
Providers Date of admission: 06/13/22 02:52 Expected date of discharge: 06/15/22 Attending physician: Chip Wiley MD Consults: 06/13/22 02:50 Consult Physician Routine Consulting Provider: Pollo Acevedo Consult Reason/Comments: Complex migraine Do you want consulting provider notified?: Yes, Notify in am Primary care physician: Physician Nonstaff Hospital Course: 32 year old female with migraine, MS, chiari malformation s/p decompression surgery who presented after experiencing one of her episodes of severe migraine headache, this was associated with aphasia, and seizure like activity, without any loss of bladder or bowel control , and no tongue biting. Patient was with her relaxing in the late evening when this happened, he notified EMS and rushed her to the hospital for evaluation, CODE stroke was activated, however upon further evaluation in the ED, no tpa was given, CT imaging of the brain no acute pathology. She does have history of sort of similar episodes, she has a diagnosis of MS and complex migraines. she reports having similar episode 6 months ago with severe headache, diffuse , associated with aphasia , but did not experience shakiness (seizure like activity ) she otherwise denies any fever, chills, head injury, denies any residual focal neuro deficits except for her chronic hand numbness bilaterally. Blood work and imaging both unremarkable for acute pathology. Patient was admitted with working diagnosis of transient ischemic attack, she had an MRI of the brain that showed 0.8 cm fluid type signal within the deep white matter of the right occipital lobe. This finding was discussed with neurology, outpatient follow-up with her own neurologist was advised. She also had an EEG as well as an echocardiogram with results currently pending. The symptoms have resolved and did not recur throughout the hospitalization. She was cleared by neurology for discharge. She will be sent home in a stable condition. Patient was seen and examined [id number] on the day of discharge 06/15. Patient Condition at Discharge: Stable Plan - Discharge Summary New Discharge Prescriptions: Continue tiZANidine [Zanaflex] 4 - 8 mg PO HS PRN PRN Reason: Muscle Spasm DULoxetine HCL [Cymbalta] 120 mg PO DAILY traZODone HCL [Desyrel] 50 mg PO HS lamoTRIgine [LaMICtal] 100 mg PO BID Aygestin 10 mg PO DAILY Morphine Sulfate Ir [MSIR] 30 mg PO DAILY PRN PRN Reason: Pain lamoTRIgine [LaMICtal] 50 mg PO BID Metoprolol Succinate (ER) [Toprol XL] 100 mg PO DAILY Cabergoline 0.5 mg PO DAILY Discharge Medication List DULoxetine HCL [Cymbalta] 120 mg PO DAILY 12/15/19 [History] tiZANidine [Zanaflex] 4 - 8 mg PO HS PRN 12/15/19 [History] Aygestin 10 mg PO DAILY 06/13/22 [History] Cabergoline 0.5 mg PO DAILY 06/13/22 [History] Metoprolol Succinate (ER) [Toprol XL] 100 mg PO DAILY 06/13/22 [History] Morphine Sulfate Ir [MSIR] 30 mg PO DAILY PRN 06/13/22 [History] lamoTRIgine [LaMICtal] 50 mg PO BID 06/13/22 [History] lamoTRIgine [LaMICtal] 100 mg PO BID 06/13/22 [History] traZODone HCL [Desyrel] 50 mg PO HS 06/13/22 [History] Follow up Appointment(s)/Referral(s): Nonstaff,Physician [Primary Care Provider] - 1 Week
[2022-06-15 11:45] VITALS: BP 120/85; PULSE 86; RESP 16; TEMP 98.1
--- NOTE | 2022-06-15 12:19 | CA ---
Transthoracic Echo Report Name: Leslye Sanchez Age: 32 Gender: F : 1990 Exam Date: 06/15/2022 08:37 Exam Location: [facility] Ht (in): 65 Wt (lb): 180 Ordering Physician: Pollo Acevedo MD Attending/Referring Phys: Geosciences Associate Professor Arin Ochoa RDCS Procedure CPT: Indications: stroke/tia Cardiac Hx: Technical Quality: Contrast 1: Total Dose (mL): Contrast 2: Total Dose (mL): MEASUREMENTS (Male / Female) Normal Values 2D ECHO LV Diastolic Diameter PLAX 3.9 cm 4.2 - 5.9 / 3.9 - 5.3 cm LV Systolic Diameter PLAX 3.4 cm IVS Diastolic Thickness 1.1 cm 0.6 - 1.0 / 0.6 - 0.9 cm LVPW Diastolic Thickness 1.3 cm 0.6 - 1.0 / 0.6 - 0.9 cm LV Relative Wall Thickness 0.6 RV Internal Dim ED PLAX 2.4 cm LA Systolic Diameter LX 2.7 cm 3.0 - 4.0 / 2.7 - 3.8 cm M-MODE Aortic Root Diameter MM 2.8 cm LA Systolic Diameter MM 3.3 cm LA Ao Ratio MM 1.2 MV E Point Septal Separation 0.3 cm AV Cusp Separation MM 2.1 cm DOPPLER MV Area PHT 2.6 cm??? Mitral E Point Velocity 50.3 cm/s Mitral A Point Velocity 51.3 cm/s Mitral E to A Ratio 1.0 MV Deceleration Time 295.3 ms MV E' Velocity 6.4 cm/s Mitral E to MV E' Ratio 7.9 FINDINGS Left Ventricle Normal left ventricular size, wall thickness, systolic function with no obvious regional wall motion abnormalities. Left ventricular ejection fraction is estimated at 55-60%. Right Ventricle The right ventricle is normal in size and function. Right Atrium The right atrium is normal in size. Left Atrium The left atrium is normal in size. BUBBLE STUDY DONE NO SHUNT NOTED. Mitral Valve Structurally normal mitral valve without significant stenosis or prolapse. There is mild mitral regurgitation. Aortic Valve Structurally normal aortic valve without significant sclerosis or stenosis. There is no aortic regurgitation. Tricuspid Valve Structurally normal tricuspid valve without significant stenosis. Trace to mild tricuspid regurgitation Pulmonic Valve Structurally normal pulmonic valve without significant stenosis. Mild pulmonic regurgitation. Pericardium Normal pericardium without effusion. Aorta Normal aortic root dimension. CONCLUSIONS 1. Normal size and systolic function 2. Mild mitral and pulmonic regurgitation 3. No evidence of shunting by contrast bubble study Previewed by: Dr. Beverly Floyd MD (Electronically Signed) Final Date: 15 June 2022 12:19
--- NOTE | 2022-06-15 14:39 | P.PN ---
Subjective Progress Note Date: 06/14/22 Patient was seen for a follow-up. Patient denies any new neurological symptoms. Patient's was also present today. I was able to review patient's previous records of [facility] on her "my chart". Patient had an MRI of the brain performed 02/27/2022 for "aphasia". It revealed findings consistent with demyelinating disease for example MS. It appears patient's episode of aphasia was prior to starting on Aygastin, which she took in March 2022. Patient's lipid panel with cholesterol 166, LDL 86, steel 53 and triglycerides 136. Objective - Vital Signs Vital signs: Vital Signs Temp 98.1 F 06/14/22 09:07 Pulse 78 06/14/22 11:45 Resp 16 06/14/22 11:45 BP 117/81 06/14/22 11:45 Pulse Ox 98 06/14/22 11:45 FiO2 Intake & Output 06/13/22 06/14/22 06/14/22 18:59 06:59 18:59 Intake Total 118 Balance 118 Weight 81.647 kg Intake: Oral 118 Other: Voiding Method Toilet # Voids 1 - Exam Patient's examination is completely nonfocal. Mentation is normal. - Labs CBC & Chem 7: 06/12/22 23:56 06/12/22 23:56 Labs: Microbiology - Last 24 Hours (Table) 06/13/22 02:39 Urine Culture - Preliminary Urine,Voided Assessment and Plan Assessment: * 32-year-old female with history of migraines, developed a brief headache, followed by seizure-like activity, and aphasia. The seizure-like activity resolved in 30 minutes, but the aphasia resolved in 3-4 hours. At present her NIH stroke scale is 0. Patient did not receive TPA. * Patient had similar episode of possible complex migraine diagnosed in March 2022. Patient was on Aygastin (norethindrone) in March 2022 (taken for 6 weeks), and also was started on this medication again on 05/31/2022, therefore complex migraine may be related to hormonal replacement therapy. Rule out CVA. (After reviewing records from [facility], the episode of aphasia occurred in February 2022, whereas Aygastin was started in March 2022) * History of migraines without without aura. Patient's aura usually consisted of spots in the vision, never had speech difficulty with it, except the one in February 2022. * Abnormal UA, rule out UTI. * History of seizures, treated with phenobarbital for one year * Reported history of MS Plan: * MRI brain was performed, which revealed 0.8 cm fluid type signal within the deep white matter right occipital lobe of unclear etiology. This appears old. Additional workup with contrast MRI is recommended. I personally reviewed MRI, and appears definitely old. 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 * EEG was mildly abnormal due to mild slowing and disorganized background, suggestive of mild encephalopathy. No definitive epileptiform activity was seen. May consider prolonged EEG, if suspicion for seizures is high. Patient is already on Lamictal 150 mg twice a day for "migraines", which has anti- epileptic effect. * Continue aspirin 81 mg daily. * Suggest stopping hormones, as hormones can be associated with complex migraines and strokes. Patient will discuss with her OB. * Await 2-D echo with bubble study. * Lipid panel with cholesterol 206, LDL 129, HDL 42 and triglycerides 172. Suggest starting statins Lipitor 20 mg daily to target LDL <100. * Hemoglobin A1c 4.8 * Telemetry monitoring showing no arrhythmia. * Neurologically clear, if 2-D echo comes back normal.
== END 2022-06-15 15:48 | disposition home or self-care (01) ==
LOC: EC 23:30 → INTOOBSV 06-13 02:52 → 6NMEDSUR 06-13 02:52 → 3SCARD 06-13 14:13
PROVIDERS: ADMIT Internal Medicine; ATTEND Internal Medicine
DX: G43.109 Migraine with aura, not intractable, without status migrainosus (principal); G35 Multiple sclerosis; R56.9 Unspecified convulsions; R47.01 Aphasia; R94.01 Abnormal electroencephalogram [EEG]; G93.5 Compression of brain; R82.90 Unspecified abnormal findings in urine; I08.8 Other rheumatic multiple valve diseases; F32.A Depression, unspecified; F43.10 Post-traumatic stress disorder, unspecified; Z79.82 Long term (current) use of aspirin; Z88.1 Allergy status to other antibiotic agents; Z91.040 Latex allergy status; Z88.0 Allergy status to penicillin; Z88.2 Allergy status to sulfonamides; Z88.7 Allergy status to serum and vaccine; Z88.8 Allergy status to other drugs, medicaments and biological substances; Z91.048 Other nonmedicinal substance allergy status; Z86.73 Personal history of transient ischemic attack (TIA), and cerebral infarction without residual deficits; Z98.51 Tubal ligation status; Z98.890 Other specified postprocedural states; Z79.899 Other long term (current) drug therapy
CPT/HCPCS: 96375; 96374; 99291; 36415; 95816; 93005; 93306; 80061; 80053; 83605; 83735; 84484; 85025; 85610; 85730; 81001; 87086; 87077; 87186; 83036; 70496; 70450; 70498; 70551; G0378 ×4; J2060; J1885; Q9967

== ENCOUNTER → 2022-09-10 | Outpatient (CLI) | payer MEDICARE, OTHER ==
--- NOTE | 2022-09-10 12:21 | MR ---
EXAMINATION TYPE: MR knee RT wo con DATE OF EXAM: 09/10/2022 COMPARISON: None HISTORY: Right knee pain, injury. TECHNIQUE: Multiplanar, multisequence images of the knee is performed without IV contrast. FINDINGS: MEDIAL MENISCUS: Anterior and posterior horns are intact without tear. LATERAL MENISCUS: Anterior and posterior horns are intact without tear. CRUCIATE LIGAMENTS: The anterior and posterior cruciate ligaments are intact and unremarkable. COLLATERAL LIGAMENTS: The medial collateral ligament and lateral collateral ligament complex are inta ct and unremarkable. EXTENSOR MECHANISM: Visualized quadriceps and patellar tendons are intact. EFFUSION: No significant suprapatellar joint effusion. POPLITEAL CYST: No popliteal/kearney cyst. TRICOMPARTMENT SPACES: Intact CARTILAGE: Intact BONE MARROW SIGNAL: No focal abnormal marrow signal is appreciated. OTHER: No additional significant abnormality is appreciated. IMPRESSION: No MR evidence to suggest internal arrangement.
== END | disposition home or self-care (01) ==
LOC: RADMRIMAIN 11:11
PROVIDERS: ATTEND Orthopaedic Surgery
DX: M25.561 Pain in right knee (principal)

== ENCOUNTER → 2022-11-06 | Outpatient (CLI) | payer MEDICARE, OTHER ==
[2022-11-06 20:20] LABS: Basophils # (A) 0.03 X 10*3/uL (0.00-0.10); Basophils % (A) 0.4 %; Eosinophils # (A) 0.01 X 10*3/uL (0.04-0.35); Eosinophils % (A) 0.1 %; HCT 42.1 % (37.2-46.3); HGB 14.3 g/dL (12.0-15.0); Immature Grans, Automated 0.5 %; Lymphocytes # (A) 1.78 X 10*3/uL (0.90-5.00); Lymphocytes % (A) 23.7 %; MCH 33.9 pg (27.0-32.0); MCV 99.8 fL (80.0-97.0); Mean Platelet Volume 8.6 fL (9.5-12.2); Monocytes # (A) 0.42 X 10*3/uL (0.20-1.00); Monocytes % (A) 5.6 %; NRBC Per 100 WBC 0 /100 WBCS (0.0-0.0); Neutrophils # (A) 5.22 X 10*3/uL (1.80-7.70); Neutrophils % (A) 69.7 %; Platelet Count 490 X 10*3/uL (140-440); RBC 4.22 X 10*6/uL (4.10-5.20); RDW 12.4 % (11.5-14.5)
[2022-11-06 20:44] LABS: Anion Gap 10.1 mmol/L (10.00-18.00); Carbon Dioxide 27.7 mmol/L (20.0-27.5)
== END | disposition home or self-care (01) ==
LOC: LABWHC1 15:14
PROVIDERS: ATTEND Orthopaedic Surgery
DX: Z01.812 Encounter for preprocedural laboratory examination (principal); M23.91 Unspecified internal derangement of right knee
CPT/HCPCS: 36415; 80051; 85025; 93005

== ENCOUNTER 2022-11-22 12:35 | Day surgery (SDC) | payer MEDICARE, OTHER ==
[2022-11-19 12:00] VITALS: BMI 29.0
--- NOTE | 2022-11-22 07:49 | HP ---
HISTORY AND PHYSICAL DATE OF SURGERY: 11/22/2022. HISTORY OF PRESENT ILLNESS: Leslye Sanchez is a 32-year-old patient seen with progressive right knee pain. We discussed options for treatment, status post right knee arthroscopy. Consent was obtained. PAST MEDICAL HISTORY: Hypertension, anxiety. PAST SURGICAL HISTORY: Noncontributory. DAILY MEDICATIONS: Compazine, Cymbalta, Flonase, Lopressor, Naprosyn, vitamins. ALLERGIES: Adhesives, amoxicillin, Cipro, clindamycin, tetanus, latex, penicillin. SOCIAL HISTORY: She denies tobacco use. PHYSICAL EVALUATION OF THE RIGHT KNEE: Range of motion is -2/3 to 110 degrees. Mild effusion. Tenderness along the medial and lateral joint lines. Positive medial Jed's. Positive lateral Jed's. Ligaments are stable. Hip rotation is without pain. Distal neurovascular exam is intact. RADIOGRAPHS: Radiographs of her right knee revealed an effusion. MRI of right knee revealed no abnormality. IMPRESSION: 1. Internal derangement of right knee with medial tear versus osteochondral tear. 2. Hypertension. 3. Anxiety. PLAN: Right knee arthroscopy with partial meniscectomy versus chondroplasty and debridement. MMODL / IJN: [id number] /
[~2022-11-22 12:35] MED LIST: LIDOCAINE 1% (10MG/ML) FOR IV START INTRADERMA PRN; ONDANSETRON 4 MG/2 ML VIAL IVP ONE; droPERidol 5 MG/2 ML VIAL IVP ONE
[2022-11-22] MEDS: LACTATED RINGERS 1,000 ML IV SCH ×2 (12:45→13:47)
[2022-11-22 12:57] VITALS: TEMP 98.1
[2022-11-22] MEDS ORDERED: DEXAMETHASONE SOD PHOSPHATE 4 MG/ML 1 ML VIAL IVP ONE (13:25)
[2022-11-22] MEDS ORDERED: SCOPOLAMINE 1 MG/72 HR PATCH TRANSDERM ONE (13:25)
[2022-11-22] MEDS ORDERED: MIDAZOLAM 2 MG/2 ML VIAL ONE (13:45)
[2022-11-22] MEDS ORDERED: LIDOCAINE 2% INJ 20 MG/ML (2 ML VIAL) ONE (13:45)
[2022-11-22] MEDS ORDERED: fentaNYL (PF) 50 MCG/ML 2 ML AMP ONE (13:45)
[2022-11-22] MEDS ORDERED: PROPOFOL 10 MG/ML 20 ML VIAL IV ONE (13:45)
[2022-11-22] MEDS ORDERED: BUPIVACAINE (PF) 0.25% 30 ML VIAL MISCELLANE ONE (14:32)
--- NOTE | 2022-11-22 14:51 | P.OP ---
Date of Procedure: 11/22/22 Preoperative Diagnosis: Internal derangement right knee Postoperative Diagnosis: 1. Tear medial meniscus right knee 2. Grade 4 chondromalacia medial femoral condyle right knee 3. Grade 4 chondromalacia lateral femoral condyle right knee 4. Reactive synovitis medial, lateral and suprapatellar compartments right knee Procedure(s) Performed: 1. Arthroscopic partial medial meniscectomy right knee 2. Arthroscopic microfracture medial femoral condyle right knee 3. Arthroscopic microfracture lateral femoral condyle right knee 4. Arthroscopic partial synovectomy medial, lateral and suprapatellar compartments right knee 5. Arthroscopic chondroplasty medial femoral condyle right knee 6. Arthroscopic chondroplasty lateral femoral condyle right knee Anesthesia: JOSIAHA, local Surgeon: Jorge Luis Chappell Estimated Blood Loss (ml): 7 Pathology: none sent Condition: stable Disposition: PACU Indications for Procedure: 32-year-old patient was seen with progressive right knee pain. After treatment options were discussed, she elected to proceed with arthroscopy. Operative Findings: see description of procedure Description of Procedure: Patient was taken to the operative suite. Patient underwent a general anesthetic by the department of anesthesia. Patient was given preoperative antibiotics. The right lower extremity was placed in a well-padded arthroscopic leg blanca. The right leg was prepped and draped in the normal sterile orthopedic fashion. A lateral parapatellar and suprapatellar incision was made. Trochars were inserted. Arthroscopy was initiated. Suprapatellar pouch revealed diffuse thick reactive synovitis. The patellofemoral joint appeared to articulate congruently. There was grade 2 chondromalacia of the patella with no significant osteochondral tears. The scope was guided into the medial gutter. No loose bodies or plica were identified. The scope was then guided into the medial compartment. A medial parapatellar incision was made. Trocar inserted followed by probe. There was a radial tear posterior horn medial meniscus. There was an area of grade 3/4 chondromalacia medial femoral condyle with a large osteochondral flap tear. There was thick reactive synovitis anteriorly. I performed a partial medial meniscectomy getting down to stable meniscal tissue. I performed a chondroplasty of the medial femoral condyle getting down to stable osteochondral tissue. I performed a partial synovectomy decompressing the reactive synovitis anteriorly. I did note an area of exposed bone along the medial femoral condyle measuring about 8 mm in diameter. I introduced a microfracture awl performed a microfracture to the area penetrating the bone with resultant bleeding at the microfracture site. The residual meniscus was probed and was found be stable. The residual osteochondral surface appeared stable. There was good decompression of the synovitis. Scope and probe were then guided into the intercondylar notch. Cruciates were identified, probed and found to be stable. The scope and probe were then guided into lateral compartment. The lateral meniscus was probed and was found to be stable. There was an area of grade 3/4 chondromalacia of the lateral femoral condyle with a very large osteochondral flap tear. There was thick reactive synovitis anteriorly. I performed a chondroplasty of the lateral femoral condyle getting down to stable osteochondral tissue. I performed a partial synovectomy decompressing the reactive synovitis. I noted areas exposed bone lateral femoral condyle measuring 1.2 cm with stable appearing peripheral osteochondral cartilage. I now introduced a microfracture awl and performed a microfracture to the area penetrating the bone with resultant bleeding at the microfracture site. The residual osteochondral surface was probed and was found to be stable. There was good decompression of the synovitis. The scope was in guided back into the suprapatellar compartment. I introduced a motorized shaver into the suprapatellar compartment. I performed a partial synovectomy decompressing the reactive synovitis. The shaver was removed. There was good decompression of the synovitis. I took one more look around the entire knee, no residual debris. Instruments were now removed from the joint. The joint was infiltrated with .25% Marcaine. Steri-Strips were applied to the portal sites. Sterile dressings were applied. The patient was placed into a DIGNA hose. No tourniquet was utilized. The patient was awakened, transferred to a bed and taken to recovery stable satisfactory condition.
[2022-11-22] MEDS: HYDROmorphone 0.5 MG/0.5 ML SYRINGE IVP PRN ×4 (14:52→15:18)
[2022-11-22] MEDS ORDERED: KETOROLAC 15 MG/ML 1 ML VIAL IVP ONE (15:12)
[2022-11-22 15:15] VITALS: RESP 16
[2022-11-22] MEDS ORDERED: HYDROcodone/APAP 5-325MG 1 EACH TAB ONE (16:09)
[2022-11-22 16:11] VITALS: BP 123/85; PULSE 88
[2022-11-22] MEDS ORDERED: HYDROcodone/APAP 5-325MG 1 EACH TAB PO ONE (16:11)
== END 2022-11-22 16:41 | disposition home or self-care (01) ==
LOC: OR 12:35
PROVIDERS: ATTEND Orthopaedic Surgery
DX: S83.241A Other tear of medial meniscus, current injury, right knee, initial encounter (principal); M94.261 Chondromalacia, right knee; M65.861 Other synovitis and tenosynovitis, right lower leg; M25.461 Effusion, right knee; I10 Essential (primary) hypertension; F41.9 Anxiety disorder, unspecified; Z88.0 Allergy status to penicillin; Z88.1 Allergy status to other antibiotic agents; Z79.899 Other long term (current) drug therapy; X58.XXXA Exposure to other specified factors, initial encounter
CPT/HCPCS: 81025; 84132; 29881; 29879; J2250; J1100; J0690; J2405; J3010; J1885; J2704; J1170; J2001

== ENCOUNTER 2023-05-02 17:03 | Emergency (ER) | payer MEDICARE, OTHER ==
--- NOTE | 2023-05-02 17:55 | ED ---
General Adult HPI - General Chief complaint: Vaginal Bleeding Stated complaint: 10wks preg-vag bleeding Time Seen by Provider: 05/02/23 17:20 Source: patient, RN notes reviewed Mode of arrival: ambulatory Limitations: no limitations - History of Present Illness Initial comments: 33-year-old female presents emergency Department with chief complaint of vaginal bleeding in . She states that she is 10 weeks via IVF. She states she noticed the bleeding started around 11 AM today. She notes that shortly after this she started having some lower abdominal cramping. She states the bleeding has continued. She reports that it is light and less than her typical period. She admits to using 2-3 panty liners. She follows with [facility] [place] and [facility] in [place]. PMH includes MS, migraines. - Related Data Home Medications Medication Instructions Recorded Confirmed DULoxetine HCL [Cymbalta] 120 mg PO DAILY 12/15/19 11/22/22 tiZANidine [Zanaflex] 4 - 8 mg PO HS PRN 12/15/19 11/22/22 Metoprolol Succinate (ER) [Toprol 100 mg PO DAILY 06/13/22 11/22/22 XL] Morphine Sulfate Ir [MSIR] 30 mg PO DAILY PRN 06/13/22 11/22/22 lamoTRIgine [LaMICtal] 150 mg PO BID 06/13/22 11/22/22 traZODone HCL [Desyrel] 50 mg PO HS 06/13/22 11/22/22 Cetirizine HCl [Zyrtec] 10 mg PO DAILY 11/19/22 11/22/22 Fluticasone Nasal [place] [Flonase 1 spray EA NOSTRIL DAILY 11/19/22 11/22/22 Nasal [place]] Norethindrone Acetate 5 mg PO DAILY 11/19/22 11/22/22 [Norethindrone AC (Lupaneta)] Previous Rx's Medication Instructions Recorded Aspirin 81 mg PO DAILY 90 Days #90 tab 06/15/22 HYDROcodone/APAP 5-325MG [[place] 1 tab PO Q6HR PRN 4 Days #16 tab 11/22/22 5-325] Cephalexin [Keflex] 500 mg PO BID #14 cap 05/02/23 Allergies Allergy/AdvReac Type Severity Reaction Status Date / Time adhesive Allergy Rash/Hives Verified 05/02/23 17:07 amoxicillin Allergy Rash/Hives Verified 05/02/23 17:07 ciprofloxacin Allergy Rash/Hives Verified 05/02/23 17:07 clindamycin Allergy Rash/Hives Verified 05/02/23 17:07 diphtheria,pertussis Allergy Rash/Hives Verified 05/02/23 17:07 (acellular),te [From Boostrix Tdap] doxylamine Allergy Unknown Verified 05/02/23 17:07 ketamine Allergy Dyspnea Verified 05/02/23 17:07 latex Allergy Rash/Hives Verified 05/02/23 17:07 montelukast Allergy Confusion Verified 05/02/23 17:07 Penicillins Allergy Rash/Hives Verified 05/02/23 17:07 sertraline [From Zoloft] Allergy Rash/Hives/ Verified 05/02/23 17:07 Seizures Sulfa (Sulfonamide Allergy Rash/Hives Verified 05/02/23 17:07 Antibiotics) Review of Systems ROS Statement: Those systems with pertinent positive or pertinent negative responses have been documented in the HPI. ROS Other: All systems not noted in ROS Statement are negative. Past Medical History Past Medical History: CVA/TIA, Musculoskeletal Disorder, Neurologic Disorder Additional Past Medical History / Comment(s): MS, complex migraines, chiari malformation type one History of Any Multi-Drug Resistant Organisms: None Reported Past Surgical History: Adenoidectomy, Hernia Repair, Orthopedic Surgery, Tonsillectomy, Tubal Ligation Additional Past Surgical History / Comment(s): cyst removal x 2, chiari decompression surg. 2018, finger surgery, left knee scope Past Anesthesia/Blood Transfusion Reactions: No Reported Reaction Additional Past Anesthesia/Blood Transfusion Reaction / Comment(s): pt states no issues with anesthesia Past Psychological History: Depression, PTSD Smoking Status: Never smoker Past Alcohol Use History: None Reported Past Drug Use History: None Reported - Past Family History familiy Family Medical History: No Reported History Additional Family Medical History / Comment(s): denies seizures General Exam Limitations: no limitations General appearance: alert, in no apparent distress Head exam: Present: atraumatic, normocephalic, normal inspection Eye exam: Present: normal appearance, PERRL, EOMI. Absent: scleral icterus, conjunctival injection, periorbital swelling ENT exam: Present: normal exam, mucous membranes moist Respiratory exam: Present: normal lung sounds bilaterally. Absent: respiratory distress, wheezes, rales, rhonchi, stridor Cardiovascular Exam: Present: regular rate, normal rhythm, normal heart sounds. Absent: systolic murmur, diastolic murmur, rubs, gallop, clicks GI/Abdominal exam: Present: soft, normal bowel sounds. Absent: distended, tenderness, guarding, rebound, rigid Back exam: Present: normal inspection Neurological exam: Present: alert, oriented X3 Psychiatric exam: Present: normal affect, normal mood Skin exam: Present: warm, dry, intact, normal color. Absent: rash Course Vital Signs 05/02/23 05/02/23 17:04 17:09 Temperature 99.3 F Pulse Rate 96 Respiratory 17 Rate Blood Pressure 134/84 O2 Sat by Pulse 99 Oximetry Medical Decision Making - Medical Decision Making Was pt. sent in by a medical professional or institution (Dr. PA, [facility], urgent c are, hospital, or group home...) When possible be specific @ -No Did you speak to anyone other than the patient for history (EMS, parent, family, police, friend...)? What history was obtained from this source @ -No Did you review nursing and triage notes (agree or disagree)? Why? @ -I reviewed and agree with nursing and triage notes Were old charts reviewed (outside hosp., previous admission, EMS record, old EKG, old radiological studies, urgent care reports/EKG's, group home records)? Report findings @ -No old charts were reviewed Differential Diagnosis (chest pain, altered mental status, abdominal pain women, abdominal pain men, vaginal bleeding, weakness, fever, dyspnea, syncope, headache, dizziness, GI bleed, back pain, seizure, CVA, palpatations, mental health, musculoskeletal)? @ -Differential Vaginal Bleeding: Spontaneous , threatened , molar , ectopic , bloody show, incompetent cervix, abruptioplacenta, placenta previa, uterine rupture, dysfunctional uterine bleeding, hemorrhage, uterine fibroids, this is not meant to be an all-inclusive list. EKG interpreted by me (3pts min.). @ -None X-rays interpreted by me (1pt min.). @ -None done CT interpreted by me (1pt min.). @ -None done U/S interpreted by me (1pt. min.). @ -Ultrasound shows a single live intrauterine What testing was considered but not performed or refused? (CT, X-rays, U/S, labs)? Why? @ -None What meds were considered but not given or refused? Why? @ -None Did you discuss the management of the patient with other professionals (professionals i.e. , PA, [employer] MAKER, lab, RT, psych nurse, social sciences chair, pharmacy technician, teacher, asset protection officer, case advocate)? Give summary @ -No Was smoking cessation discussed for >3mins.? @ -No Was critical care preformed (if so, how long)? @ -No Were there social determinants of health that impacted care today? How? (Homelessness, low income, unemployed, alcoholism, drug addiction, tra nsportation, low edu. Level, literacy, decrease access to med. care, retirement, rehab)? @ -No Was there de-escalation of care discussed even if they declined (Discuss DNR or withdrawal of care, Hospice)? DNR status @ -No What co-morbidities impacted this encounter? (DM, HTN, Smoking, COPD, CAD, Cancer, CVA, ARF, Chemo, Hep., AIDS, mental health diagnosis, sleep apnea, morbid obesity)? @ -None Was patient admitted / discharged? Hospital course, mention meds given and route, prescriptions, significant lab abnormalities, going to OR and other pertinent info. @ -Discharged. Patient presented to the emergency department with chief complaint of vaginal bleeding in . ultrasound shows single viable intrauterine measuring 10 weeks 1 day laboratory studies show WBC 7.1, hemoglobin 14.3; sodium 136, potassium 4.1; UA shows trace blood, moderate bacteria. This will be treated as asymptomatic bacturia in . Blood type O+ not requiring rhogam. Patient advised on results. Advised follow-up with her [facility]. Patient agreeable with Treatment plan. Patient stable at discharge. Case discussed with Dr. Oleary Undiagnosed new problem with uncertain prognosis? @ -No Drug Therapy requiring intensive monitoring for toxicity (Heparin, Nitro, Insulin, Cardizem)? @ -No Were any procedures done? @ -No Diagnosis/symptom? @ -vaginal bleeding in Acute, or Chronic, or Acute on Chronic? @ -acute Uncomplicated (without systemic symptoms) or Complicated (systemic symptoms)? @ -uncomplicated Side effects of treatment? @ -No Exacerbation, Progression, or Severe Exacerbation? @ -No Poses a threat to life or bodily function? How? (Chest pain, USA, SC, pneumonia, PE, COPD, DKA, ARF, appy, cholecystitis, CVA, Diverticulitis, Homicidal, Suicidal, threat to staff... and all critical care pts) @ -No - Lab Data Result diagrams: 05/02/23 17:34 05/02/23 17:34 Lab Results 05/02/23 05/02/23 05/02/23 Range/Units 17:34 17:34 17:34 WBC 7.1 (3.8-10.6) k/uL RBC 4.22 (3.80-5.40) m/uL Hgb 14.3 (11.4-16.0) gm/dL Hct 41.2 (34.0-46.0) % MCV 97.5 (80.0-100.0) fL MCH 33.8 (25.0-35.0) pg MCHC 34.7 (31.0-37.0) g/dL RDW 12.6 (11.5-15.5) % Plt Count 365 (150-450) k/uL MPV 7.3 Neutrophils % 59 % Lymphocytes % 28 % Monocytes % 5 % Eosinophils % 7 % Basophils % 0 % Neutrophils # 4.2 (1.3-7.7) k/uL Lymphocytes # 2.0 (1.0-4.8) k/uL Monocytes # 0.4 (0-1.0) k/uL Eosinophils # 0.5 (0-0.7) k/uL Basophils # 0.0 (0-0.2) k/uL PT 9.7 L (10.0-12.5) sec INR 0.9 (<1.2) APTT 24.4 (22.0-30.0) sec Sodium (137-145) mmol/L Potassium (3.5-5.1) mmol/L Chloride (98-107) mmol/L Carbon Dioxide (22-30) mmol/L Anion Gap mmol/L BUN (7-17) mg/dL Creatinine (0.52-1.04) mg/dL Est GFR (CKD-EPI)AfAm (>60 ml/min/1.73 sqM) Est GFR (CKD-EPI)NonAf (>60 ml/min/1.73 sqM) Glucose (74-99) mg/dL Calcium (8.4-10.2) mg/dL Total Bilirubin (0.2-1.3) mg/dL AST (14-36) U/L ALT (4-34) U/L Alkaline Phosphatase (38-126) U/L Total Protein (6.3-8.2) g/dL Albumin (3.5-5.0) g/dL Urine Color Colorless Urine Appearance Cloudy H (Clear) Urine pH 7.0 (5.0-8.0) Ur Specific [place] 1.007 (1.001-1.035) Urine Protein Negative (Negative) Urine Glucose (UA) Negative (Negative) Urine Ketones Negative (Negative) Urine Blood Trace H (Negative) Urine Nitrite Negative (Negative) Urine Bilirubin Negative (Negative) Urine Urobilinogen <2.0 (<2.0) mg/dL Ur Leukocyte Esterase Negative (Negative) Urine RBC 1 (0-5) /hpf Urine WBC 5 (0-5) /hpf Ur Squamous Epith Cells <1 (0-4) /hpf Urine Bacteria Moderate H (None) /hpf Urine Mucus Rare H (None) /hpf Blood Type Blood Type Recheck Bld Type Recheck Status 05/02/23 05/02/23 Range/Units 17:34 17:54 WBC (3.8-10.6) k/uL RBC (3.80-5.40) m/uL Hgb (11.4-16.0) gm/dL Hct (34.0-46.0) % MCV (80.0-100.0) fL MCH (25.0-35.0) pg MCHC (31.0-37.0) g/dL RDW (11.5-15.5) % Plt Count (150-450) k/uL MPV Neutrophils % % Lymphocytes % % Monocytes % % Eosinophils % % Basophils % % Neutrophils # (1.3-7.7) k/uL Lymphocytes # (1.0-4.8) k/uL Monocytes # (0-1.0) k/uL Eosinophils # (0-0.7) k/uL Basophils # (0-0.2) k/uL PT (10.0-12.5) sec INR (<1.2) APTT (22.0-30.0) sec Sodium 136 L (137-145) mmol/L Potassium 4.1 (3.5-5.1) mmol/L Chloride 102 (98-107) mmol/L Carbon Dioxide 25 (22-30) mmol/L Anion Gap 9 mmol/L BUN 9 (7-17) mg/dL Creatinine 0.57 (0.52-1.04) mg/dL Est GFR (CKD-EPI)AfAm >90 (>60 ml/min/1.73 sqM) Est GFR (CKD-EPI)NonAf >90 (>60 ml/min/1.73 sqM) Glucose 97 (74-99) mg/dL Calcium 9.7 (8.4-10.2) mg/dL Total Bilirubin 0.4 (0.2-1.3) mg/dL AST 25 (14-36) U/L ALT 20 (4-34) U/L Alkaline Phosphatase 50 (38-126) U/L Total Protein 6.8 (6.3-8.2) g/dL Albumin 4.2 (3.5-5.0) g/dL Urine Color Urine Appearance (Clear) Urine pH (5.0-8.0) Ur Specific [place] (1.001-1.035) Urine Protein (Negative) Urine Glucose (UA) (Negative) Urine Ketones (Negative) Urine Blood (Negative) Urine Nitrite (Negative) Urine Bilirubin (Negative) Urine Urobilinogen (<2.0) mg/dL Ur Leukocyte Esterase (Negative) Urine RBC (0-5) /hpf Urine WBC (0-5) /hpf Ur Squamous Epith Cells (0-4) /hpf Urine Bacteria (None) /hpf Urine Mucus (None) /hpf Blood Type O Positive Blood Type Recheck O Pos Bld Type Recheck Status No Disposition Clinical Impression: Threatened Disposition: HOME SELF-CARE Condition: Stable Instructions (If sedation given, give patient instructions): Threatened Miscarriage (ED), Non-Threatening First Trimester Vaginal Bleed (ED) Additional Instructions: Please follow up with your [facility] as scheduled. Return to the emergency department for new or worsening symptoms as discussed. Is patient prescribed a controlled substance at d/c from ED?: No Referrals: Nonstaff,Physician [Primary Care Provider] - 1-2 days
[2023-05-02 18:35] LABS: Basophils % (A) 0 %; Eosinophils # (A) 0.5 k/uL (0-0.7); Eosinophils % (A) 7 %; HCT 41.2 % (34.0-46.0); HGB 14.3 gm/dL (11.4-16.0); Lymphocytes % (A) 28 %; MCH 33.8 pg (25.0-35.0); MCHC 34.7 g/dL (31.0-37.0); MCV 97.5 fL (80.0-100.0); Mean Platelet Volume 7.3; Monocytes # (A) 0.4 k/uL (0-1.0); Monocytes % (A) 5 %; Neutrophils # (A) 4.2 k/uL (1.3-7.7); Neutrophils % (A) 59 %; Platelet Count 365 k/uL (150-450); RBC 4.22 m/uL (3.80-5.40); RDW 12.6 % (11.5-15.5); WBC 7.1 k/uL (3.8-10.6)
[2023-05-02 18:38] LABS: Appearance,Urine Cloudy (Clear); Bacteria,Urine Moderate /hpf; Bilirubin,Urine Negative (Negative); Blood,Urine Trace (Negative); Color,Urine Colorless; Glucose,Urine (UA) Negative (Negative); Ketones,Urine Negative (Negative); Leukocyte Esterase,Urine Negative (Negative); Mucus,Urine Rare /hpf; Nitrite,Urine Negative (Negative); Protein,Urine Negative (Negative); RBC,Urine 1 /hpf (0-5); Specific Gravity,Urine 1.007 (1.001-1.035); Squamous Epithelial Cell,Urine <1 /hpf (0-4); Urobilinogen,Urine <2.0 mg/dL (<2.0); WBC,Urine 5 /hpf (0-5)
--- NOTE | 2023-05-02 18:44 | US ---
EXAMINATION TYPE: Transabdominal DATE OF EXAM: 05/02/2023 6:23 PM COMPARISON: NONE CLINICAL INDICATION: Female, 33 years old with history of 10 wk preg, vb; vaginal bleeding on and off today. Did IVF for this . . EXAM PERFORMED: Transabdominal (TA) EXAM MEASUREMENTS: GESTATIONAL AGE / DATING Physician Established: (9 weeks/6 days) EDC: 11/29/23 Dates by LMP: LMP unknown Dates by First Scan: No previous this is first scan Dates by Current Scan for: (10 weeks/1 days) EDC: 11/27/23 MATERNAL ANATOMY Uterus: 10.1 x 9.2 x 6.3cm. The cervix appears heterogeneous and bulky. Right Ovary: 2.7 x 3.3 x 1.8cm Left Ovary: not seen Post CDS / Adnexa: wnl Presence of free fluid: No Presence of corpus luteal cyst: Not seen Presence of subchorionic bleed: No GESTATION / SURVEY CRL: 3.29 (10 weeks/1 days) MSD: Not measured. Appears wnl Yolk Sac (normal less than 6mm): 4.9mm Heart Rate: 178 bpm Rhythm: Normal IUP: Viable IUP Date of LMP: unknown Beta HcG (if available): Pending IMPRESSION: Single viable IUP measuring 10 weeks 1 day.
[2023-05-02 18:45] LABS: INR 0.9 (<1.2); Partial Thromboplastin Time 24.4 sec (22.0-30.0); Prothrombin Time 9.7 sec (10.0-12.5)
[2023-05-02 19:15] LABS: ALT 20 U/L (4-34); AST 25 U/L (14-36); African American GFR (CKD) >90 (>60 ml/min/1.73 sqM); Albumin 4.2 g/dL (3.5-5.0); Alkaline Phosphatase 50 U/L (38-126); Anion Gap 9 mmol/L; Blood Urea Nitrogen 9 mg/dL (7-17); Calcium 9.7 mg/dL (8.4-10.2); Carbon Dioxide 25 mmol/L (22-30); Chloride 102 mmol/L (98-107); Glucose 97 mg/dL (74-99); Non-African American GFR(CKD) >90 (>60 ml/min/1.73 sqM); Potassium 4.1 mmol/L (3.5-5.1); Sodium 136 mmol/L (137-145); Total Bilirubin 0.4 mg/dL (0.2-1.3); Total Protein 6.8 g/dL (6.3-8.2)
[2023-05-02 20:18] VITALS: BP 128/98; PULSE 98; RESP 16; TEMP 98.4
[2023-05-02 21:21] LABS: HCG,Quantitative Serum >225000.0 mIU/mL
== END 2023-05-02 20:17 | disposition home or self-care (01) ==
LOC: EC 17:03
DX: O20.0 Threatened abortion (principal); O99.341 Other mental disorders complicating pregnancy, first trimester; F32.A Depression, unspecified; Z3A.10 10 weeks gestation of pregnancy; Z79.899 Other long term (current) drug therapy; Z86.73 Personal history of transient ischemic attack (TIA), and cerebral infarction without residual deficits; Z88.0 Allergy status to penicillin; Z88.1 Allergy status to other antibiotic agents; Z88.2 Allergy status to sulfonamides; Z88.7 Allergy status to serum and vaccine; Z88.8 Allergy status to other drugs, medicaments and biological substances; Z91.040 Latex allergy status; Z91.09 Other allergy status, other than to drugs and biological substances
CPT/HCPCS: 36415; 76801; 80053; 81001; 84702; 85025; 85610; 85730; 86900; 86901; 99284

== ENCOUNTER 2023-05-09 10:47 | Emergency (ER) | payer MEDICARE, OTHER ==
[2023-05-09] MEDS ORDERED: PROCHLORPERAZINE INJ 10 MG/2 ML VIAL IVP STA (11:23)
[2023-05-09] MEDS ORDERED: SODIUM CHLORIDE 0.9% 2,000 ML IV STA (11:29)
[2023-05-09] MEDS ORDERED: ACETAMINOPHEN TAB 325 MG TAB PO STA (11:35)
--- NOTE | 2023-05-09 11:49 | ED ---
Headache HPI - General Chief Complaint: Headache Stated Complaint: headache Time Seen by Provider: 05/09/23 11:04 Source: patient, RN notes reviewed Mode of arrival: ambulatory Limitations: no limitations - History of Present Illness Initial Comments: Patient is a 33-year-old female presented ER chief complaint of a headache. Patient is 9 weeks . Patient states she has been taking at home Tylenol and Zofran for her symptoms without improvement. Patient states she has a medical history of degenerative disc disease and MS. She believes this is a flareup. Patient is reporting photophobia and 10 out of 10 pain at this time. Patient denies any shortness of breath, chest pain, double or blurry vision, numbness or tingling in her upper or lower extremities. - Related Data Home Medications Medication Instructions Recorded Confirmed DULoxetine HCL [Cymbalta] 120 mg PO DAILY 12/15/19 11/22/22 tiZANidine [Zanaflex] 4 - 8 mg PO HS PRN 12/15/19 11/22/22 Metoprolol Succinate (ER) [Toprol 100 mg PO DAILY 06/13/22 11/22/22 XL] Morphine Sulfate Ir [MSIR] 30 mg PO DAILY PRN 06/13/22 11/22/22 lamoTRIgine [LaMICtal] 150 mg PO BID 06/13/22 11/22/22 traZODone HCL [Desyrel] 50 mg PO HS 06/13/22 11/22/22 Cetirizine HCl [Zyrtec] 10 mg PO DAILY 11/19/22 11/22/22 Fluticasone Nasal [place] [Flonase 1 spray EA NOSTRIL DAILY 11/19/22 11/22/22 Nasal [place]] Norethindrone Acetate 5 mg PO DAILY 11/19/22 11/22/22 [Norethindrone AC (Lupaneta)] Previous Rx's Medication Instructions Recorded Aspirin 81 mg PO DAILY 90 Days #90 tab 06/15/22 HYDROcodone/APAP 5-325MG [[place] 1 tab PO Q6HR PRN 4 Days #16 tab 11/22/22 5-325] Cephalexin [Keflex] 500 mg PO BID #14 cap 05/02/23 Allergies Allergy/AdvReac Type Severity Reaction Status Date / Time adhesive Allergy Rash/Hives Verified 05/09/23 10:50 amoxicillin Allergy Rash/Hives Verified 05/09/23 10:50 ciprofloxacin Allergy Rash/Hives Verified 05/09/23 10:50 clindamycin Allergy Rash/Hives Verified 05/09/23 10:50 diphtheria,pertussis Allergy Rash/Hives Verified 05/09/23 10:50 (acellular),te [From Boostrix Tdap] doxylamine Allergy Unknown Verified 05/09/23 10:50 ketamine Allergy Dyspnea Verified 05/09/23 10:50 latex Allergy Rash/Hives Verified 05/09/23 10:50 montelukast Allergy Confusion Verified 05/09/23 10:50 Penicillins Allergy Rash/Hives Verified 05/09/23 10:50 sertraline [From Zoloft] Allergy Rash/Hives/ Verified 05/09/23 10:50 Seizures Sulfa (Sulfonamide Allergy Rash/Hives Verified 05/09/23 10:50 Antibiotics) Review of Systems ROS Statement: Those systems with pertinent positive or pertinent negative responses have been documented in the HPI. ROS Other: All systems not noted in ROS Statement are negative. Past Medical History Past Medical History: CVA/TIA, Musculoskeletal Disorder, Neurologic Disorder Additional Past Medical History / Comment(s): MS, complex migraines, chiari malformation type one History of Any Multi-Drug Resistant Organisms: None Reported Past Surgical History: Adenoidectomy, Hernia Repair, Orthopedic Surgery, Tonsillectomy, Tubal Ligation Additional Past Surgical History / Comment(s): cyst removal x 2, chiari decompression surg. 2018, finger surgery, left knee scope Past Anesthesia/Blood Transfusion Reactions: No Reported Reaction Additional Past Anesthesia/Blood Transfusion Reaction / Comment(s): pt states no issues with anesthesia Past Psychological History: Depression, PTSD Smoking Status: Never smoker Past Alcohol Use History: None Reported Past Drug Use History: None Reported - Past Family History familiy Family Medical History: No Reported History Additional Family Medical History / Comment(s): denies seizures General Exam Limitations: no limitations General appearance: alert, in no apparent distress Head exam: Present: atraumatic, normocephalic, normal inspection Eye exam: Present: normal appearance, PERRL, EOMI. Absent: scleral icterus, conjunctival injection, periorbital swelling Pupils: Present: normal accommodation ENT exam: Present: normal exam, mucous membranes moist Neck exam: Present: normal inspection. Absent: tenderness, meningismus, lymphadenopathy Respiratory exam: Present: normal lung sounds bilaterally. Absent: respiratory distress, wheezes, rales, rhonchi, stridor Cardiovascular Exam: Present: regular rate, normal rhythm, normal heart sounds. Absent: systolic murmur, diastolic murmur, rubs, gallop, clicks Neurological exam: Present: alert, oriented X3, CN II-XII intact Psychiatric exam: Present: normal affect, normal mood Course Vital Signs 05/09/23 10:48 Temperature 98.4 F Pulse Rate 113 H Respiratory 20 Rate Blood Pressure 138/92 O2 Sat by Pulse 99 Oximetry Medical Decision Making - Medical Decision Making Was pt. sent in by a medical professional or institution (, PA, DIRECTOR CPG, urgent care, hospital, or correction...) When possible be specific @ -No Did you speak to anyone other than the patient for history (EMS, parent, family, police, friend...)? What history was obtained from this source @ -No Did you review nursing and triage notes (agree or disagree)? Why? @ -I reviewed and agree with nursing and triage notes Were old charts reviewed (outside hosp., previous admission, EMS record, old EKG, old radiological studies, urgent care reports/EKG's, correction records)? Report findings @ -No old charts were reviewed Differential Diagnosis (chest pain, altered mental status, abdominal pain women, abdominal pain men, vaginal bleeding, weakness, fever, dyspnea, syncope, headache, dizziness, GI bleed, back pain, seizure, CVA, palpatations, mental health, musculoskeletal)? @ -Differential Headache:Migraine, tension, cluster, carbon monoxide, central venous thrombosis, pension karma temporal arteritis, acute closure glaucoma, intercranial hemorrhage, mastoiditis, sinusitis, head injury, this is not meant to be an all-inclusive list. EKG interpreted by me (3pts min.). @ -None X-rays interpreted by me (1pt min.). @ -None done CT interpreted by me (1pt min.). @ -None done U/S interpreted by me (1pt. min.). @ -None done What testing was considered but not performed or refused? (CT, X-rays, U/S, labs)? Why? @ -I considered a brain CT but patient refused due to and having prior CTs. What meds were considered but not given or refused? Why? @ -I offered to give the patient magnesium for headache control. Patient miranda ed as she takes daily magnesium. Did you discuss the management of the patient with other professionals (professionals i.e. , PA, DIRECTOR [employer], lab, RT, psych nurse, drug abuse social worker, pipe coremaker, teacher, weapons electrical engineering officer, case supervisor)? Give summary @ -No Was smoking cessation discussed for >3mins.? @ -No Was critical care preformed (if so, how long)? @ -No Were there social determinants of health that impacted care today? How? (Homelessness, low income, unemployed, alcoholism, drug addiction, transportation, low edu. Level, literacy, decrease access to med. care, residential, rehab)? @ -No Was there de-escalation of care discussed even if they declined (Discuss DNR or withdrawal of care, Hospice)? DNR status @ -No What co-morbidities impacted this encounter? (DM, HTN, Smoking, COPD, CAD, Cancer, CVA, ARF, Chemo, Hep., AIDS, mental health diagnosis, sleep apnea, morbid obesity)? @ -Migraines, degenerative disc disease, Was patient admitted / discharged? Hospital course, mention meds given and route, prescriptions, significant lab abnormalities, going to OR and other pertinent info. @ -Discharge. Upon examination, patient was laying in the room with lights off and her arms over her eyes. Patient received 2L IV fluids, IV Compazine and by mouth Tylenol for symptom control. Upon reevaluation of the patient she states that her nausea has subsided but her pain was still persisting. I discussed with the patient that due to being I was limited on medications I could give her. I offered to give the patient magnesium but she declined saying she takes a daily magnesium supplement. I also offered to CT her brain looking for any abnormalities she also declined stating that she is and does not want to be exposed to radiation and she's had multiple prior CTs. Patient reports she would like to go home at this time. I discussed return parameters with the patient. Patient will be discharged in stable condition with follow-up to PCP and KINESIOLOGY PROFESSOR. Patient expressed understanding and agreement with care plan. Undiagnosed new problem with uncertain prognosis? @ -No Drug Therapy requiring intensive monitoring for toxicity (Heparin, Nitro, Insulin, Cardizem)? @ -No Were any procedures done? @ -No Diagnosis/symptom? @ -Migraine/ Acute, or Chronic, or Acute on Chronic? @ -Acute on chronic Uncomplicated (without systemic symptoms) or Complicated (systemic symptoms)? @ -Uncomplicated Side effects of treatment? @ -No Exacerbation, Progression, or Severe Exacerbation? @ -No Poses a threat to life or bodily function? How? (Chest pain, [place], [place], pneumonia, PE, COPD, DKA, ARF, appy, cholecystitis, CVA, Diverticulitis, Homicidal, Suicidal, threat to staff... and all critical care pts) @ -No Disposition Clinical Impression: Migraine headache Disposition: HOME SELF-CARE Condition: Stable Instructions (If sedation given, give patient instructions): Acute Headache (ED) Additional Instructions: Please return to the Emergency Department if symptoms worsen or any other concerns. Is patient prescribed a controlled substance at d/c from ED?: No Referrals: None,Stated [Primary Care Provider] - 1-2 days Time of Disposition: 13:59
[2023-05-09 14:20] VITALS: PULSE 98; RESP 16; TEMP 98.2
[2023-05-09 14:43] VITALS: BP 126/83
== END 2023-05-09 14:24 | disposition home or self-care (01) ==
LOC: EC 10:47
DX: O99.351 Diseases of the nervous system complicating pregnancy, first trimester (principal); G43.909 Migraine, unspecified, not intractable, without status migrainosus; O99.341 Other mental disorders complicating pregnancy, first trimester; F32.A Depression, unspecified; Z79.899 Other long term (current) drug therapy; Z86.73 Personal history of transient ischemic attack (TIA), and cerebral infarction without residual deficits; Z91.048 Other nonmedicinal substance allergy status; Z88.0 Allergy status to penicillin; Z88.1 Allergy status to other antibiotic agents; Z88.2 Allergy status to sulfonamides; Z88.4 Allergy status to anesthetic agent; Z88.7 Allergy status to serum and vaccine; Z88.8 Allergy status to other drugs, medicaments and biological substances; Z91.040 Latex allergy status
CPT/HCPCS: 99283; 96374; 96361 ×2; J0780

== ENCOUNTER 2024-03-19 19:07 | Emergency (ER) | payer MEDICARE, OTHER ==
[2024-03-19 19:16] VITALS: RESP 20
[2024-03-19] MEDS: DOXYCYCLINE 100 MG CAP PO STA (19:56)
[2024-03-19] MEDS: metroNIDAZOLE 500 MG TAB PO STA (19:57)
[2024-03-19] MEDS: KETOROLAC 15 MG/ML 1 ML VIAL IM STA (19:57)
[2024-03-19] MEDS: MORPHINE SULFATE 4 MG/ML SYRINGE IM STA (19:58)
--- NOTE | 2024-03-19 20:11 | ED ---
Animal Bite HPI - General Chief Complaint: Animal Bite Stated Complaint: Dog bite L wrist Time Seen by Provider: 03/19/24 19:21 Source: patient, RN notes reviewed Mode of arrival: ambulatory Limitations: no limitations - History of Present Illness Initial Comments: This is a 34-year-old female who presents to the emergency department for a dog bite to the left forearm. States that her friend's dog bit her around 6 PM when they were training it on an electric fence. States that it grabbed on in a couple of areas and kept pulling. She does have a bump over this area that is painful. Tetanus vaccine is up-to-date. The dog is up-to-date on its immunizations. Denies sustaining any other injuries. MD Complaint: animal bite - Related Data Home Medications Medication Instructions Recorded Confirmed DULoxetine HCL [Cymbalta] 120 mg PO DAILY 12/15/19 11/22/22 tiZANidine [Zanaflex] 4 - 8 mg PO HS PRN 12/15/19 11/22/22 Metoprolol Succinate (ER) [Toprol 100 mg PO DAILY 06/13/22 11/22/22 XL] Morphine Sulfate Ir [MSIR] 30 mg PO DAILY PRN 06/13/22 11/22/22 lamoTRIgine [LaMICtal] 150 mg PO BID 06/13/22 11/22/22 traZODone HCL [Desyrel] 50 mg PO HS 06/13/22 11/22/22 Cetirizine HCl [Zyrtec] 10 mg PO DAILY 11/19/22 11/22/22 Fluticasone Nasal [place] [Flonase 1 spray EA NOSTRIL DAILY 11/19/22 11/22/22 Nasal [place]] Norethindrone Acetate 5 mg PO DAILY 11/19/22 11/22/22 [Norethindrone AC ([place])] Previous Rx's Medication Instructions Recorded Aspirin 81 mg PO DAILY 90 Days #90 tab 06/15/22 HYDROcodone/APAP 5-325MG [[place] 1 tab PO Q6HR PRN 4 Days #16 tab 11/22/22 5-325] Cephalexin [Keflex] 500 mg PO BID #14 cap 05/02/23 cefUROXime axetiL [Ceftin] 500 mg PO BID 7 Days #14 tab 03/19/24 metroNIDAZOLE [Flagyl] 500 mg PO TID 7 Days #21 tab 03/19/24 Allergies Allergy/AdvReac Type Severity Reaction Status Date / Time adhesive Allergy Rash/Hives Verified 03/19/24 19:16 amoxicillin Allergy Rash/Hives Verified 03/19/24 19:16 ciprofloxacin Allergy Rash/Hives Verified 03/19/24 19:16 clindamycin Allergy Rash/Hives Verified 03/19/24 19:16 diphtheria,pertussis Allergy Rash/Hives Verified 03/19/24 19:16 (acellular),te [From Boostrix Tdap] doxycycline Allergy Rash/Hives Verified 03/19/24 20:03 doxylamine Allergy Unknown Verified 03/19/24 19:16 ketamine Allergy Dyspnea Verified 03/19/24 19:16 latex Allergy Rash/Hives Verified 03/19/24 19:16 montelukast Allergy Confusion Verified 03/19/24 19:16 Penicillins Allergy Rash/Hives Verified 03/19/24 19:16 sertraline [From Zoloft] Allergy Rash/Hives/ Verified 03/19/24 19:16 Seizures Sulfa (Sulfonamide Allergy Rash/Hives Verified 03/19/24 19:16 Antibiotics) Review of Systems ROS Statement: Those systems with pertinent positive or pertinent negative responses have been documented in the HPI. ROS Other: All systems not noted in ROS Statement are negative. Past Medical History Past Medical History: CVA/TIA, Musculoskeletal Disorder, Neurologic Disorder Additional Past Medical History / Comment(s): MS, complex migraines, chiari malformation type one History of Any Multi-Drug Resistant Organisms: None Reported Past Surgical History: Adenoidectomy, Hernia Repair, Orthopedic Surgery, T onsillectomy, Tubal Ligation Additional Past Surgical History / Comment(s): cyst removal x 2, chiari decompression surg. 2018, finger surgery, left knee scope Past Anesthesia/Blood Transfusion Reactions: No Reported Reaction Additional Past Anesthesia/Blood Transfusion Reaction / Comment(s): pt states no issues with anesthesia Past Psychological History: Depression, PTSD Smoking Status: Never smoker Past Alcohol Use History: None Reported Past Drug Use History: None Reported - Past Family History familiy Family Medical History: No Reported History Additional Family Medical History / Comment(s): denies seizures General Exam Limitations: no limitations General appearance: alert, in no apparent distress Head exam: Present: atraumatic, normocephalic, normal inspection Respiratory exam: Present: normal lung sounds bilaterally. Absent: respiratory distress, wheezes, rales, rhonchi, stridor Cardiovascular Exam: Present: regular rate, normal rhythm, normal heart sounds. Absent: systolic murmur, diastolic murmur, rubs, gallop, clicks Extremities exam: Present: other (Tender bump over the left forearm with surrounding puncture wounds. No active bleeding. 2+ radial pulses.) Neurological exam: Present: alert, oriented X3, CN II-XII intact Psychiatric exam: Present: normal affect, normal mood Course Vital Signs 03/19/24 03/19/24 19:11 20:47 Temperature 98.9 F 98.7 F Pulse Rate 106 H 91 Respiratory 20 20 Rate Blood Pressure 138/88 131/80 O2 Sat by Pulse 100 100 Oximetry Medical Decision Making - Medical Decision Making This is a 34 year old female who presents to the emergency department for a dog bite to the left arm. Was pt. sent in by a medical professional or institution? @ -No Did you speak to anyone other than the patient for history? @ -No Did you review nursing and triage notes? @ -Yes, and I agree, it is accurate with regards to the patient's symptoms. Were old charts reviewed? @ -No Differential Diagnosis? @ -Animal bite, human bite, abrasion, laceration, this is not meant to be an all-inclusive list. EKG interpreted by me (3pts min.)? @ -Not obtained X-rays interpreted by me (1pt min.)? @ -X-ray of the left forearm obtained. My interpretation identifies no acute fractures. CT interpreted by me (1pt min.)? @ -Not obtained U/S interpreted by me (1pt. min.)? @ -Not obtained What testing was considered but not performed? (CT, X-rays, U/S, labs)? Why? @ -None What meds were considered but not given? Why? @ -None Did you discuss the management of the patient with other professionals? @ -No Did you reconcile home meds? @ -No Was smoking cessation discussed for >3mins.? @ -No Was critical care preformed (if so, how long)? @ -No Were there social determinants of health that impacted care today? How? (Homelessness, low income, unemployed, alcoholism, drug addiction, transportation, low edu. Level, literacy, decrease access to med. care, longterm, rehab)? @ -No Was there de-escalation of care discussed even if they declined? (Discuss DNR or withdrawal of care, Hospice)? @ -No What co-morbidities impacted this encounter? (DM, HTN, Smoking, COPD, CAD, Cancer, CVA, Hep., AIDS, mental health diagnosis, sleep apnea, morbid obesity)? @ -None Was patient admitted / discharged? @ -Discharged. X-ray of the left forearm obtained revealing no acute process. Patient's tetanus vaccine is up-to-date and the dog is up-to-date on its immunizations. Prescription for metronidazole and cefuroxime provided for infectious prophylaxis. Initial dose was administered in the emergency department. Advised continuing with ice and elevation as well as [id number] ibuprofen and Tylenol for pain control. Patient discharged home in stable condition. Case discussed with ED attending Dr. Oleary. Return precautions reviewed in depth, the patient is instructed to return to the emergency department with any new, worsening, or concerning symptoms. Patient verbalized understanding. Undiagnosed new problem with uncertain prognosis? @ -None Drug Therapy requiring intensive monitoring for toxicity (Heparin, Nitro, Insulin, Cardizem)? @ -None Were any procedures done? @ -None Diagnosis/symptom? @ -Dog bite Acute, or Chronic, or Acute on Chronic? @ -Acute Uncomplicated (without systemic symptoms) or Complicated (systemic symptoms)? @ -Uncomplicated Side effects of treatment? @ -None Exacerbation, Progression, or Severe Exacerbation] @ -Not applicable Poses a threat to life or bodily function? @ -No - Radiology Data Radiology results: report reviewed, image reviewed Disposition Clinical Impression: Dog bite Disposition: HOME SELF-CARE Instructions (If sedation given, give patient instructions): Animal Bite (ED) Additional Instructions: Return to the emergency department with any new, worsening, or concerning symptoms. Take both antibiotics as prescribed for 7 days. Alternate with ibuprofen and Tylenol as needed for pain relief. Follow up with your primary ca re provider in 1-2 days. Prescriptions: cefUROXime axetiL [Ceftin] 500 mg PO BID 7 Days #14 tab metroNIDAZOLE [Flagyl] 500 mg PO TID 7 Days #21 tab Is patient prescribed a controlled substance at d/c from ED?: No Referrals: Nonstaff,Physician [Primary Care Provider] - 1-2 days Time of Disposition: 20:29
--- NOTE | 2024-03-19 20:24 | XR ---
EXAMINATION TYPE: XR forearm LT DATE OF EXAM: 03/19/2024 CLINICAL HISTORY: pain TECHNIQUE: Frontal and lateral images of the left forearm are obtained. COMPARISON: None. FINDINGS: There is no acute fracture/dislocation evident. The joint spaces appear within normal limi ts. Soft tissue swelling at the site of dog bite. No evidence for foreign body. IMPRESSION: There is no acute fracture or dislocation. ICD 10 NO FRACTURE, INITIAL EVALUATION [facility], , 03/19/2024 8:22 PM
[2024-03-19] MEDS: CEFUROXIME 750 MG VIAL IM STA (20:38)
[2024-03-19 20:48] VITALS: BP 131/80; PULSE 91; TEMP 98.7
== END 2024-03-19 20:48 | disposition home or self-care (01) ==
LOC: EC 19:07
CPT/HCPCS: 96372; 99283

== ENCOUNTER 2024-06-16 14:18 | Emergency (ER) | payer MEDICARE, OTHER ==
[2024-06-16 14:50] VITALS: BP 130/86; PULSE 85; RESP 18; TEMP 98.1
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
[2024-06-16] MEDS: HYDROmorphone 1 MG/ML 1 ML SYRINGE IM STA (16:01)
== END 2024-06-16 16:32 | disposition home or self-care (01) ==
LOC: EC 14:18
DX: S09.90XA Unspecified injury of head, initial encounter (principal); M54.2 Cervicalgia; Z88.0 Allergy status to penicillin; Z88.1 Allergy status to other antibiotic agents; Z88.2 Allergy status to sulfonamides; Z88.7 Allergy status to serum and vaccine; Z91.040 Latex allergy status; Z91.09 Other allergy status, other than to drugs and biological substances; Z88.8 Allergy status to other drugs, medicaments and biological substances; V89.2XXA Person injured in unspecified motor-vehicle accident, traffic, initial encounter; Y92.411 Interstate highway as the place of occurrence of the external cause
CPT/HCPCS: 72125; 70450; 99284; 96372; L0120; J1171